=== PATIENT | female | born 1995 | race Caucasian/White ===

== ENCOUNTER 2018-02-14 13:49 | Emergency (ER) | payer OTHER, SELFPAY ==
[2018-02-14 13:49] VITALS: BP 110/70; PULSE 83; RESP 18; TEMP 36.6; O2SAT 100; BMI 24.0
--- NOTE | 2018-02-14 14:00 | ED.VISSUMM ---
- ER Visit Summary Date of Service: 02/14/18 Chief Complaint: Nausea and vomiting History of Present Illness: The patient is a 23 F presents to the emergency department with alcohol poisoning. Patient states that yesterday was her birthday. She states she went out last night and drank a whole bunch of whiskey. She states she began to vomit 2 in the morning. She states she has been unable to stop vomiting since that time. She denies fevers or chills. She only has abdominal pain when she is vomiting. She denies any blood in the emesis. Patient has no history of abdominal surgery. She denies any other chronic medical conditions. Physical Examination: Vital signs reviewed General: Well-nourished, well-developed Head: Normocephalic, atraumatic Eyes: Pupils equal and reactive, extraocular muscles intact Neck, supple, no lymphadenopathy Heart: Regular rate and rhythm Respiratory: No distress, clear bilaterally Abdomen: Soft, nontender, nondistended, no peritoneal signs Back: Nontender Extremities: Nontender, no edema, no cords Skin: Normal color no rash Neuro: Alert and oriented, no focal or lateralizing deficits Test Results: [] Emergency Department Course and Treatment: The patient presents with nausea and vomiting. Her abdomen is benign. IV was established. She was given Phenergan and Toradol. Screening labs are unremarkable. The patient is not . On reevaluation, she is resting comfortably. She has had no further vomiting. At this time, I do feel that she is safe for outpatient therapy. She was counseled to abstain from alcohol. She will be discharged, return with any worsening symptoms. Treatment Plan: [] Disposition: Discharge Impression: Nausea vomiting This note was generated with [employer] dictation software. It may contain incorrect words, spelling, and punctuation that were not noted in review of the chart prior to signing ED Disposition - Plan for ED Patient: Chief Complaint: Nausea/Vomiting Instructions: ED Nausea Vomiting Prescriptions: Ondansetron [Zofran Odt] 4 mg PO Q8H PRN PRN #10 tab PRN Reason: Nausea Referrals: Raman Bishop III, MD [Primary Care Provider] -
[2018-02-14 14:16] LABS: Absolute Lymphocyte Count 1.28 X10^3/ul (0.83-4.51); Absolute Neutrophil Count 12.8 X10^3/uL (2.0-7.7); Basophil# 0.02 X10^3/uL; Basophil% 0.1 % (0-1); Eosinophil# 0.02 X10^3/uL; Eosinophils% 0.1 % (0-5); Hematocrit 40.8 % (37-47); Hemoglobin 13.8 g/dl (12.0-15.0); Lymphocyte # 1.28 X10^3/ul (4.0); Lymphocyte % 8.7 % (19-41); Mean Corp Hgb Conc 33.8 g/gl (32-36); Mean Corpuscular Hgb 30.3 pg (27.0-32.0); Mean Corpuscular Volume 89.5 fL (81-99); Mean Platelet Vol. 9.5 fl (6.2-12.0); Monocyte# 0.49 X10^3/uL; Monocyte% 3.3 % (0-10); Neutrophil # 12.84 X10^3/uL (2.7-7.7); Neutrophil % 87.7 % (47-70); POSITIVE COUNT NO; POSITIVE DIFFERENTIAL NO; POSITIVE MORPHOLOGY NO; Platelet Count 229 K/mm3 (150-450); RBC Distribution Width CV 12.3 % (11.6-14.6); Red Blood Count 4.56 M/mm3 (4.2-5.4); White Blood Count 14.7 K/mm3 (4.4-11.0)
[2018-02-14] MEDS: 0.9% Normal Saline 1,000 ML 1000 ML IV (14:16)
[2018-02-14] MEDS: proMETHazine 25 MG/ML Syringe 12.5 MG IV (14:19)
[2018-02-14] MEDS: Ketorolac 15 MG/ML Vial IV (14:19)
[2018-02-14] MEDS: DiphenhydrAMINE 50 MG/ML Syringe 25 MG IV (14:19)
[2018-02-14 14:28] LABS: Anion Gap 9 (5-15); BUN 10 mg/dL (7-18); BUN/Creat Ratio 11.9 RATIO (10-20); Calcium,Total 9.5 mg/dL (8.5-10.1); Chloride 107 mmol/L (98-107); Creatinine, Serum 0.84 mg/dL (0.55-1.02); EST Glomerular Filtration Rate 90 mL/min (>60); Est Glom Filt Rate - Afr Amer 109 mL/min (>60); Estimated Creatinine Clearance 105.97 ml/min; Glucose 95 mg/dL (74-106); Potassium 3.8 mmol/L (3.5-5.1); Sodium Level 141 mmol/L (136-145)
[2018-02-14 14:33] LABS: Pregnancy, Serum, hCG Quali. NEGATIVE Negative (0-9 Nonpreg)
[2018-02-14 15:08] VITALS: BP 105/56; PULSE 64; RESP 14; O2SAT 100
== END 2018-02-14 15:11 | disposition home or self-care (01) ==
PROVIDERS: Emergency Provider Emergency Medicine; Family Provider Family Medicine; PCP Family Medicine
DX: R11.2 Nausea with vomiting, unspecified (principal); R10.9 Unspecified abdominal pain
CPT/HCPCS: 80048; 84703; 85025; 96361; 96374; 96375; 99283; J7030; A4216

== ENCOUNTER 2019-03-09 21:32 | Emergency (ER) | payer OTHER, SELFPAY ==
[2019-03-09 21:33] VITALS: BP 123/76; PULSE 75; RESP 14; TEMP 36.7; O2SAT 98; BMI 23.8
--- NOTE | 2019-03-09 22:30 | RAD_ITS ---
STUDY: X-RAY - LUMBAR SPINE REASON FOR EXAM: Female, 24 years old. Lower back pain for 2 months worsening tonight. TECHNIQUE: 3 view(s) of the lumbar spine were obtained. COMPARISON: None FINDINGS: Normal lumbar lordosis. Very minimal levo scoliosis with convexity at L2-3. There is a normal alignment of the vertebrae. Normal vertebral bodies and endplates. Normal disc space heights. There is no evidence of acute fracture or loss of vertebral axial height. The soft tissue structures are unremarkable. RAD/Lumbar Spine 2 or 3 Views IMPRESSION: Minimal levoscoliosis without other evidence of lumbar spine abnormality. Electronically Signed: Leroy Holt DO at 22:50 EDT Tel [phone], Service support ,
--- NOTE | 2019-03-09 23:05 | ED.DCSUM_ITS ---
- ER Visit Summary Date of Service: 03/09/19 Chief Complaint: Low back pain History of Present Illness: The patient is a 24 F dyspnea past medical history. Patient states over the years she is had back pain from time to time. 2 months ago she took a step and went down about 2 feet and injured her back. Since that time she is had back pain. She is been going to a local chiropractor who told her she had arthritis in her back and has been doing back injections. She is never had back surgery. She denies any fever. She states the pains in her lower back and radiates to both legs. She denies any bowel or bladder incontinence. No leg weakness. Physical Examination: Young female no acute distress. Vital signs are stable and afebrile. H EENT exam unremarkable. Neck nontender no lymphadenopathy. Lungs clear to auscultation bilaterally. Heart regular rhythm no murmur. A bdomen is soft and nontender. Normal bowel sounds no peritoneal signs. Extremities moves all 4. Neurovascular intact. 5 out of 5 drilling foreman strength. Dorsi plantarflexion intact. No cauda equina. No saddle anesthesia. No specific radiculopathy. Back she has tenderness along her lumbar spine. There is no ecchymosis or bruising. No redness or warmth. Neurologically she is awake and alert. With no focal motor or sensory deficits. Test Results: LS spine x-rays were obtained 3 views shows no acute abnormality. No fracture. Good joint space. Normal vertebral bodies. Read both myself and radiologist. I did go over the films with the patient and her . Emergency Department Course and Treatment: X-rays obtained to rule out any type of fracture. They were normal. Treatment Plan: Motrin for pain and inflammation. Ice and heat. Follow-up with your primary care physician if not improving she may need more advanced imaging such as an MRI. Disposition: Discharge Impression: Acute on chronic low back pain of uncertain etiology This note was generated with [employer] dictation software. It may contain incorrect words, spelling, and punctuation that were not noted in review of the chart prior to signing ED Disposition - Plan for ED Patient: Referrals: Raman Bishop III, MD [Primary Care Provider] -
--- NOTE | 2019-03-09 23:10 | ED.DEP ---
ED Disposition - Plan for ED Patient: Disposition: Home or Assisted Living Instructions: BACK PAIN w/ SCIATICA Referrals: Raman Bishop III, MD [Primary Care Provider] - 1 Week if not improving Additional Instructions: Motrin for pain and inflammation. Ice and heat to your back. Follow-up with Dr. Raman Bishop if not improving you may need an MRI to evaluate the disc and nerve in your lower back.
[2019-03-09 23:18] VITALS: RESP 16
== END 2019-03-09 23:18 | disposition home or self-care (01) ==
PROVIDERS: Emergency Provider Emergency Medicine; Family Provider Family Medicine; PCP Family Medicine
DX: M54.5 Low back pain (principal); G89.29 Other chronic pain
CPT/HCPCS: 72100; 99282

== ENCOUNTER 2019-09-13 12:31 | Emergency (ER) | payer OTHER, MEDICAID, SELFPAY ==
[2019-09-13 12:33] VITALS: BP 117/80; PULSE 86; RESP 16; TEMP 37; O2SAT 100; BMI 25.5
[2019-09-13 12:40] VITALS: TEMP 37
--- NOTE | 2019-09-13 12:43 | ED.DCSUM_ITS ---
History of Present Illness Chief Complaint: Cold Sx Informant: Patient Onset: Days Context: Gradual Onset Timing: Continuous Current Severity: Moderate Maximum Severity: Moderate Narrative: The patient presents to the emergency department flulike symptoms. The patient is 8 weeks gestation. She states that she has had cough, myalgias, low-grade fever, diarrhea, and vomiting. She states her symptoms began about 5 days ago. She went to urgent care, and because she was , she was sent over here. She denies any bleeding or discharge. She has had documented intrauterine with this . She is otherwise been in her normal state of health. Prior similar symptoms: No Recent Illness/Hospitalization: No Past Medical History - Allergies and Home Meds Allergies/Adverse Reactions: Allergies adhesive Allergy (Verified 09/13/19 12:33) Rash Latex, Natural Rubber Allergy (Verified 09/13/19 12:33) Rash Primary Care Physician: Raman Bishop III, MD [Primary Care Provider] - Prior records reviewed: Yes Past Medical History: None Surgical History: no surgical history Smoking Status: Never smoker Review of Systems General: Reports: Fever Eyes: Denies: Visual changes - bilaterally, Diplopia ENT: Denies: Rhinorrhea, Sore throat Cardiovascular: Denies: Chest pain, Palpitations Respiratory: Reports: Cough Gastrointestinal: Reports: Nausea, Vomiting, Diarrhea Genitourinary: Denies: Dysuria, Hematuria, Frequency Musculoskeletal: Denies: Back pain, Extremity Pain Skin: Denies: Rash, Wounds Neurological: Denies: Headache, Weakness, Numbness Physical Exam Vital Signs/Narrative: Vital Signs Temp Pulse Resp BP Pulse Ox 09/13/19 12:40 98.6 F 09/13/19 12:33 98.6 F 86 16 117/80 100 Inital Vital Signs reviewed: Yes General: Well nourished, Well developed, No Acute Distress Head: Normocephalic, Atraumatic Eyes: Perrl, EOMI ENT: Moist mucous membranes, No rhinorrhea Neck: Supple, Nontender Cardiovascular: Regular rate, Regular rhythm, No murmurs Respiratory: No distress, CTA bilaterally, Chest nontender Abdomen: Soft, Nontender, Nondistended, Normal bowel sounds Back: Nontender, Normal Inspection Extremities: Nontender, No edema Skin: Normal color, No rash Neurological: Alert, Oriented x3, Cranial nerves II-XII grossly intact, Normal Strength, Normal Sensation Psychological: Normal affect, Normal Mood Diagnostic/Tx/Re-eval Abnormal Lab Results 09/13/19 09/13/19 09/13/19 12:59 12:59 13:19 WBC 4.8 RBC 4.10 L Hgb 12.2 Hct 36.7 L MCV 89.5 MCH 29.8 MCHC 33.2 RDW Std Deviation 39.3 RDW Coeff of Ramses 12.1 Plt Count 188 MPV 9.9 Immature Gran % (Auto) 0.200 Neut % (Auto) 64.2 Lymph % (Auto) 21.1 [place] % (Auto) 14.1 H Eos % (Auto) 0.2 Baso % (Auto) 0.2 Absolute Neuts (auto) 3.1 Absolute Lymphs (auto) 1.00 Nucleated RBC % 0 Sodium 137 Potassium 3.8 Chloride 105 Carbon Dioxide 26.0 Anion Gap 6 BUN 7 Creatinine 0.72 Estim Creat Clear Calc 122.59 Est GFR (MDRD) Af Amer 128 Est GFR (MDRD) Non-Af 106 BUN/Creatinine Ratio 9.7 L Glucose 76 Calcium 8.8 Total Bilirubin 0.30 AST 19 ALT 22 Alkaline Phosphatase 50 Total Protein 7.6 Albumin 3.7 Globulin 3.9 Albumin/Globulin Ratio 0.9 Urine Color Yellow Urine Clarity Sl. Cloudy Urine pH 7.0 Ur Specific Lindsey 1.015 Urine Protein Negative Urine Glucose (UA) Normal Urine Ketones Negative Urine Occult Blood Negative Urine Nitrite Negative Urine Bilirubin Negative Urine Urobilinogen Normal Ur Leukocyte Esterase Negative Urine RBC 0 SEEN Urine WBC 0 SEEN Ur Squamous Epith Cells 0-5 SEEN Urine Bacteria 1+ Urine Mucus 1+ - Medical Decision Making The patient has had influenza type symptoms for 5 days. She has no hypoxia. Her lungs are clear. She is currently . Influenza was obtained was positive for influenza B. The patient was given fluids and antiemetics. Screening labs were obtained. She has no significant evidence of dehydration. She is had no further vomiting. As the patient has had symptoms for 5 days, and is , I do not see a clear benefit for Tamiflu and she is in agreement with this. I will treat her symptomatically. She will continue oral hydration and fever control. She was counseled on concerning symptoms and reasons to return. She will be discharged home. Impression 1. Influenza B ED Disposition - Plan for ED Patient: Instructions: INFLUENZA (Adult) Prescriptions: Dicyclomine HCl [Bentyl] 20 mg PO TIDAC #20 cap Prescription Printed Ondansetron [Zofran Odt] 4 mg PO Q8H PRN PRN #10 tab PRN Reason: Nausea Prescription Printed Referrals: Raman Bishop III, MD [Primary Care Provider] -
[2019-09-13] MEDS: 0.9% Normal Saline 1,000 ML 1000 ML IV (12:58)
[2019-09-13] MEDS: proMETHazine 25 MG/ML Syringe 6.25 MG IV (12:58)
[2019-09-13 13:25] LABS: Absolute Neutrophil Count 3.1 X10^3/uL (2.0-7.7); Basophil# 0.01 X10^3/uL; Basophil% 0.2 % (0-1); Eosinophil# 0.01 X10^3/uL; Eosinophils% 0.2 % (0-5); Hematocrit 36.7 % (37-47); Hemoglobin 12.2 g/dL (12.0-15.0); Lymphocyte % 21.1 % (19-41); Mean Corp Hgb Conc 33.2 g/dL (32-36); Mean Corpuscular Hgb 29.8 pg (27.0-32.0); Mean Corpuscular Volume 89.5 fL (81-99); Mean Platelet Vol. 9.9 fl (6.2-12.0); Monocyte# 0.67 X10^3/uL; Monocyte% 14.1 % (0-10); NRBC Flagged by Analyzer 0 % (0-5); Neutrophil # 3.05 X10^3/uL (2.7-7.7); Neutrophil % 64.2 % (47-70); Platelet Count 188 K/mm3 (150-450); RBC Distribution Width CV 12.1 % (11.6-14.6); RBC Distribution Width SD 39.3 fl (35.1-43.9); White Blood Count 4.8 K/mm3 (4.4-11.0)
[2019-09-13 13:31] LABS: Red Blood Cells-Urine 0 SEEN /hpf (0-5); White Blood Cells 0 SEEN /hpf (0-5)
[2019-09-13 13:32] LABS: Color, Urine Yellow (Yellow); Glucose, Dipstick Normal (Normal); Ketone-Dipstick Negative (Negative); Leukocyte Esterase-Dipstick Negative /ul (Negative); Nitrite-Dipstick Negative (Negative); Occult Blood-Urine Negative /ul (Negative); Protein-Dipstick Negative (Negative); Specific Gravity, Urine 1.015 (1.002-1.030); Urine Bilirubin Dipstick Negative (Negative); Urine Clarity Sl. Cloudy (Clear); Urine Urobilinogen Normal (Normal)
[2019-09-13 13:38] LABS: Bacteria 1+ /hpf (None Seen); Mucous, Urine 1+ /hpf (<or=2+); Squamous Epithelial Cells - UA 0-5 SEEN /hpf (5-10)
[2019-09-13 13:41] LABS: ALB/GLOB Ratio 0.9 RATIO (0.9-2.4); AST(SGOT) 19 U/L (15-37); Alanine Aminotransfer ALT/SGPT 22 U/L (13-56); Albumin, Serum 3.7 g/dL (3.2-5.0); Alkaline Phosphatase 50 U/L (45-117); Anion Gap 6 (5-15); BUN 7 mg/dL (7-18); BUN/Creat Ratio 9.7 RATIO (10-20); Calcium,Total 8.8 mg/dL (8.5-10.1); Chloride 105 mmol/L (98-107); Creatinine, Serum 0.72 mg/dL (0.55-1.02); EST Glomerular Filtration Rate 106 mL/min (>60); Est Glom Filt Rate - Afr Amer 128 mL/min (>60); Estimated Creatinine Clearance 122.59 ml/min; Globulin 3.9 g/dL (2.2-4.2); Glucose 76 mg/dL (74-106); Potassium 3.8 mmol/L (3.5-5.1); Protein, Total 7.6 g/dL (6.4-8.2); Sodium Level 137 mmol/L (136-145)
[2019-09-13 14:06] VITALS: BP 107/66; PULSE 59; RESP 17; TEMP 37
== END 2019-09-13 14:08 | disposition home or self-care (01) ==
LOC: ED 13:01
PROVIDERS: Emergency Provider Emergency Medicine; PCP Family Medicine
DX: O99.511 Diseases of the respiratory system complicating pregnancy, first trimester (principal); J10.1 Influenza due to other identified influenza virus with other respiratory manifestations; O99.89 Other specified diseases and conditions complicating pregnancy, childbirth and the puerperium; O21.9 Vomiting of pregnancy, unspecified; Z91.040 Latex allergy status; Z3A.08 8 weeks gestation of pregnancy
CPT/HCPCS: 80053; 81001; 85025; 87804; 96361; 96374; 99284; J7030; A4216

== ENCOUNTER 2019-09-27 10:07 | Day surgery (SDC) | payer OTHER, MEDICAID, SELFPAY ==
--- NOTE | 2019-09-23 12:17 | HP.PCM_ITS ---
History and Physical Date of Admission: 09/27/19 Claudia Barrios Physician AIRLINE MANAGERIAL SUPERVISOR H&P Signed Encounter Date: 09/23/2019 Expand All Collapse All Hide copied text Fatoumata for details Tony Hernandez is a 24 year old female who presents for missed ab follow up and for c/o vaginal irritation. Pt reports itching and burning with yellow discharge for last few days. Denies pelvic pain or dysuria. Pt reports odor with Discharge. No vaginal bleeding. Patient would like to proceed with suction D&C at [facility] a scheduled ? PAST MEDICAL HISTORY PAST MEDICAL HISTORY Diagnosis Date ? Attention deficit disorder with hyperactivity(314.01) ? ? childhood seizure ? ? age 6-no recurrences ? Genital HSV ? ? depression ? ? depression ? ? Vocal cord dysfunction 12/08/2011 ? PAST SURGICAL HISTORY PAST SURGICAL HISTORY Procedure Laterality Date ? DELIVERY ONLY ? 10/23/15 ? , low transverse ? TYMPANOSTOMY LOCAL; UNILATERAL ? ? ? FAMILY HISTORY FAMILY HISTORY Problem Relation Age of Onset ? No Known Problems Mother ? ? Diabetes Father ? ? No Known Problems Brother ? ? No Known Problems Brother ? ? No Known Problems Sister ? ? No Known Problems Brother ? ? Heart Maternal Grandfather ? ? Lipids Maternal Grandfather ? ? Stroke Maternal Grandmother ? ? Diabetes Paternal Grandmother ? ? Cancer Maternal Aunt ? ? smoker- Lung ? No Known Problems Son ? ? SOCIAL HISTORY Social History ? Tobacco Use ? Smoking status: Former Smoker ? ? Types: Cigarettes ? ? Last attempt to quit: 04/13/2017 ? ? Years since quittin.4 ? Smokeless tobacco: Never Used Substance Use Topics ? Alcohol use: No ? Drug use: No ? CURRENT MEDICATIONS Current Outpatient Medications Medication Sig ? vit 91/iron/folic/dha ( + DHA ORAL) Take by mouth. ? albuterol HFA (PROVENTIL HFA, VENTOLIN HFA) 90 mcg/actuation inhaler Inhale 2 Puffs as instructed every 4 hours as needed. ? doxycycline monohydrate (MONODOX) 100 mg capsule Take 1 capsule by mouth twice daily for 2 doses. ? ibuprofen (MOTRIN) 600 mg tablet Take 1 tablet by mouth every 6 hours as needed. FOR PAIN. ? metroNIDAZOLE (FLAGYL) 500 mg tablet Take 1 tablet by mouth twice daily for 7 days. ? valACYclovir (VALTREX) 1 gram tab TAKE 1 TABLET BY MOUTH EVERY DAY (Patient not taking: Reported on 09/13/2019) ? No current facility-administered medications for this visit. ? Allergies As of Date: 09/23/2019 Allergen Noted Reaction ADHESIVE TAPE (ROSINS) 01/27/2008 Rash LATEX, NATURAL RUBBER 03/09/2019 Rash ? Fully Assessed 09/23/2019 ? ? REVIEW OF SYSTEMS Abdomen: no pain Bladder: no dysuria.. Expanded ROS: GENERAL: Negative for fever Allergies and current medication updated:Yes ? EXAM: BP 98/54 Wt 169 lb (76.7kg) ? GENERAL: pleasant, female in no apparent distress HEENT: Normocephalic and atraumatic NECK: full range of motion DERMATOLOGY: Normal, without lesions, non-icteric and non-hirsute ? PELVIC: external genitalia normal, normal Bartholin's glands, urethra, [place]'s glands, no vulvar lesions, no cervical lesions, good vaginal support, normal appearing perineal body and perianal region, thin yellow discharge NEURO: alert and oriented x3,exam grossly non-focal EXTREMITIES: normal ? ASSESSMENT AND PLAN: Encounter Diagnosis ? ? ICD-10-CM ? 1. Missed O02.1 ? 2. Vaginal discharge N89.8 ? ? 3. Doxycycline preop/post op reviewed 4. Flagyl for likely BV- red top sent 5. Pt has been counseled on risks/benefits and alternatives of surgery including but not limited to anesthesia, bleeding, infection, perforation of uterus with subsequent injury to pelvic structures including bowel, bladder, and vessels. Pt wishes to proceed with surgery at this time. ? Consent signed and post op meds given ? ? Claudia Roque MD ? Office Visit on 09/23/2019
[2019-09-27] VITALS (8 sets, daily range): BP systolic 104–116; BP diastolic 61–79; PULSE 59–89; RESP 16; TEMP 36.8–37.2; O2SAT 92–100; BMI 25.7
[2019-09-27] MEDS: Doxycycline 100 MG CAPSULE PO (07:00)
[2019-09-27] MEDS: Lactated Ringers 1,000 ML 100 ML IV (10:40)
--- NOTE | 2019-09-27 12:14 | DCINST_ITS ---
Discharge Diet: No Restrictions Discharge Activity: Return to Normal Activity, May Shower, May Take a Tub Bath - in 2 weeks. May resume sexual activity in: 2 weeks Call your doctor if your incision/area has: Foul Smelling Discharge Call your doctor if you observe: Fever of 101 or Higher, Using more than one pad per hour Allergies/Adverse Reactions: Allergies adhesive Allergy (Verified 09/27/19 10:15) Rash Latex, Natural Rubber Allergy (Verified 09/27/19 10:15) Rash Medications to take at Discharge Acetaminophen [Tylenol Extra Strength] 500 - 1,000 mg PO Q6H PRN PRN 09/26/19 Albuterol Inhaler [Ventolin Hfa (SP)] 1 - 2 puff INHALATION Q6H PRN PRN 09/26/19 Metronidazole [Flagyl] 500 mg PO BID 09/26/19 Primary Care Physician: Raman Bishop III, MD [Primary Care Provider] - Test Results: Test results from this visit will be discussed in further detail at your follow- up appointment, if applicable. Please Follow Up With: Claudia Roque MD When: -2 weeks -
--- NOTE | 2019-09-27 12:15 | POC_PTH ---
PATIENT: GENE WEAVER LOC: [facility] U#:[id number] AGE/SX: 24/ ROOM: RE09/27/[address]: Dr. Claudia Roque, MDDOB: 1995 BED: DIS: 09/27/2019 SPEC #: [id number] RECD: 09/27/19 13:08 STATUS: BRENNON PRAFUL #: [id number] WENDI: 09/27/19 12:[address]: Claudia Roque DEPT: SURGICAL PATHOLOGY RECD BY: Baltazar De La Fuente ENTERED: 09/27/19 13:09 SP TYPE: PROD CONC OTHR DR: Dr. Raman Bishop III, MD Tissues: Product of conception, NOS Procedures: Surgery Specimen Level IV HEADER OPERATION: D & C suction PRE-OP DIAGNOSIS: Missed TISSUE SUBMITTED: Products of conception (Anora) MICROSCOPIC DIAGNOSIS Products of conception: Decidua, gestational endometrium and immature chorionic villi (products of conception). See comment. GAY:francesca 09/28/19 COMMENT Results of Anora testing will be reported as an addendum. MICROSCOPIC DESCRIPTION Slides are reviewed. GROSS DESCRIPTION Received fresh for Anora testing labeled with the patient's name is a specimen designated products of conception. The specimen consists of multiple irregular fragments of pink-red soft tissue that in aggregate measure 5 x 5 x 2 cm. A portion of the specimen is submitted for Anora testing. tissue is not identified. Risk Assessor tissue is submitted in three cassettes. / GAY:francesca 09/27/19 TC:5 CPT: 56670 ADDENDUM ADDENDUM ADDENDUM ADDENDUM ADDENDUM ADDENDUM ADDENDUM ADDENDUM ADDENDUM 10/06/2019 10:31 ADDENDUM 10/06/2019 10:31 ADDENDUM 10/06/2019 10:31 ADDENDUM 10/06/2019 10:31 ADDENDUM 10/06/2019 10:31 ANORA MICROARRAY CHROMOSOME ANALYSIS WITH PARENTAL SUPPORT RESULT: Maternal cell contamination MICROARRAY RESULT: n/a CLINICAL INTERPRETATION: Maternal cell contamination (CUSTODIAL) was detected. Insufficient DNA detected for analysis. Please see complete above mentioned report in EMR
--- NOTE | 2019-09-27 12:35 | PCM.OPRPT ---
Report of Operation Date of Procedure: 09/27/19 Pre-Operative Diagnosis: missed Post-Operative Diagnosis: same Surgery/Procedure Performed:: suction D&C Description of Surgical Findings:: anteverted uterus approx 8 weeks size Type of Anesthesia:: MAC Anesthesiologist: Patrick Hernandez Special Medications: none Specimen's removed: Products of conception Drains: none Estimated Blood Loss (mL): minimal Fluids Replaced: 400 Description of Procedure: After informed consent was obtained patient was taken to OR and placed in supine position. Anesthesia was given. patient was placed in yellow fin stirrups and prepped and draped in normal sterile fashion. bladder was drained with straight catheter with approximately 100cc of clear yellow urine expelled. Weighted speculum placed in posterior fornix of vaginal, single tooth tenaculum was used to gently grasped anterior lip of cervix. . Cervix was then gently dilated in an incremental fashion. Was adequate dilation was achieved the 8 tamazight suction catheter was placed. suction curettage performed until no tissue was expelled and cavity was deemed empty. Gentle sharp curettage performed to ensure no retained POC. The tissue was then sent out for chromosomal testing - ANORA per patient request. No complications. At this time procedure was deemed complete and successful. Tenaculum removed, speculum removed. Good hemostasis appreciated. Vaginal sweep was negative. Instrument and lap count correct x 2. I anticipate normal postoperative course. Grafts/Implants Used: none - Complications none - Admit VTE Documentation VTE Present on Admission: Yes VTE Mechan Device Prophylaxis: SCD's VTE Pharm Prophylaxis ordered?: No
[2019-09-27] MEDS: Acetaminophen 500 MG Tablet 1000 MG PO (13:35)
== END 2019-09-27 14:18 | disposition home or self-care (01) ==
LOC: SDC 10:08 → AC 10:09
PROVIDERS: PCP Family Medicine; Referring Provider Obstetrics & Gynecology; Visit Provider Obstetrics & Gynecology
PROC: (CPT 59820; principal; 2019-09-27 12:00)
DX: O02.1 Missed abortion (principal); N89.8 Other specified noninflammatory disorders of vagina; J45.909 Unspecified asthma, uncomplicated; Z79.899 Other long term (current) drug therapy; Z87.891 Personal history of nicotine dependence
CPT/HCPCS: 59820; 88305; J7120

== ENCOUNTER 2019-10-04 15:50 | Day surgery (SDC) | payer OTHER, MEDICAID, SELFPAY ==
[2019-09-27 10:27] VITALS: BMI 25.7
[2019-10-04] VITALS (7 sets, daily range): BP systolic 106–129; BP diastolic 57–69; PULSE 67–78; RESP 16–18; TEMP 36.2–36.8; O2SAT 98–100; BMI 25.7
--- NOTE | 2019-10-04 14:25 | POC_PTH ---
PATIENT: GENE WEAVER LOC: [facility] U#:[id number] AGE/SX: 24/ ROOM: RE10/04/[address]: Dr. Tanesha Gleason MD : 1995 BED: DIS: 10/04/2019 SPEC #: [id number] RECD: 10/05/19 12:02 STATUS: BRENNON REBrenda #: [id number] WENDI: 10/04/19 14:[address]: Tanesha Gleason DEPT: SURGICAL PATHOLOGY RECD BY: Baltazar De La Fuente ENTERED: 10/05/19 12:11 SP TYPE: PROD CONC OTHR DR: Dr. Raman Bishop III, MD Tissues: Product of conception, NOS Procedures: Surgery Specimen Level IV HEADER OPERATION: Dilation and curettage, suction PRE-OP DIAGNOSIS: Incomplete spontaneous , retained products of conception TISSUE SUBMITTED: Products of conception MICROSCOPIC DIAGNOSIS Products of conception: Fragments of blood clot and scant fragment of benign endometrial tissue. See comment. GAY:francesca 10/06/19 COMMENT Placental tissue is not identified. Clinical correlation and appropriate follow up are necessary. Please make reference to previous specimen ([id number]) products of conception with diagnosis of decidua, gestational endometrium and immature chorionic villi (products of conception). MICROSCOPIC DESCRIPTION Slides are reviewed. GROSS DESCRIPTION Received in fixative is one container labeled with the patient's name and designated products of conception. The specimen consists of multiple irregular fragments of dark red-vazquez soft tissue that in aggregate measure 9 x 8 x 1 cm. parts are not grossly recognized. Parent Educator portions are submitted in three cassettes. / AM:francesca 10/05/19 TC:5 CPT: 84995
[2019-10-04] MEDS: Lactated Ringers 1,000 ML 150 ML IV (16:10)
[2019-10-04 16:22] LABS: Hematocrit 35.7 % (37-47); Hemoglobin 11.7 g/dL (12.0-15.0); Mean Corp Hgb Conc 32.8 g/dL (32-36); Mean Corpuscular Hgb 29.9 pg (27.0-32.0); Mean Corpuscular Volume 91.3 fL (81-99); Mean Platelet Vol. 9.7 fl (6.2-12.0); Platelet Count 252 K/mm3 (150-450); RBC Distribution Width CV 11.9 % (11.6-14.6); RBC Distribution Width SD 39.6 fl (35.1-43.9); Red Blood Count 3.91 M/mm3 (4.2-5.4)
[2019-10-04] MEDS: Doxycycline 100 MG CAPSULE 200 MG PO (16:25)
--- NOTE | 2019-10-04 17:02 | PCM.HP.BLA ---
History and Physical Date of Admission: 10/04/19 Tony Hernandez is a 24 year old female who presents for missed ab follow up and for c/o vaginal irritation. Pt reports itching and burning with yellow discharge for last few days. Denies pelvic pain or dysuria. Pt reports odor with Discharge. No vaginal bleeding. Patient would like to proceed with suction D&C at [facility] a scheduled ? PAST MEDICAL HISTORY PAST MEDICAL HISTORY Diagnosis Date ? Attention deficit disorder with hyperactivity(314.01) ? ? childhood seizure ? ? age 6-no recurrences ? Genital HSV ? ? depression ? ? depression ? ? Vocal cord dysfunction 12/08/2011 ? PAST SURGICAL HISTORY PAST SURGICAL HISTORY Procedure Laterality Date ? DELIVERY ONLY ? 10/23/15 ? , low transverse ? TYMPANOSTOMY LOCAL; UNILATERAL ? ? ? FAMILY HISTORY FAMILY HISTORY Problem Relation Age of Onset ? No Known Problems Mother ? ? Diabetes Father ? ? No Known Problems Brother ? ? No Known Problems Brother ? ? No Known Problems Sister ? ? No Known Problems Brother ? ? Heart Maternal Grandfather ? ? Lipids Maternal Grandfather ? ? Stroke Maternal Grandmother ? ? Diabetes Paternal Grandmother ? ? Cancer Maternal Aunt ? ? smoker- Lung ? No Known Problems Son ? ? SOCIAL HISTORY Social History ? Tobacco Use ? Smoking status: Former Smoker ? ? Types: Cigarettes ? ? Last attempt to quit: 04/13/2017 ? ? Years since quittin.4 ? Smokeless tobacco: Never Used Substance Use Topics ? Alcohol use: No ? Drug use: No ? CURRENT MEDICATIONS Current Outpatient Medications Medication Sig ? vit 91/iron/folic/dha ( + DHA ORAL) Take by mouth. ? albuterol HFA (PROVENTIL HFA, VENTOLIN HFA) 90 mcg/actuation inhaler Inhale 2 Puffs as instructed every 4 hours as needed. ? doxycycline monohydrate (MONODOX) 100 mg capsule Take 1 capsule by mouth twice daily for 2 doses. ? ibuprofen (MOTRIN) 600 mg tablet Take 1 tablet by mouth every 6 hours as needed. FOR PAIN. ? metroNIDAZOLE (FLAGYL) 500 mg tablet Take 1 tablet by mouth twice daily for 7 days. ? valACYclovir (VALTREX) 1 gram tab TAKE 1 TABLET BY MOUTH EVERY DAY (Patient not taking: Reported on 09/13/2019) ? No current facility-administered medications for this visit. ? Allergies As of Date: 09/23/2019 Allergen Noted Reaction ADHESIVE TAPE (ROSINS) 01/27/2008 Rash LATEX, NATURAL RUBBER 03/09/2019 Rash ? Fully Assessed 09/23/2019 ? ? REVIEW OF SYSTEMS Abdomen: no pain Bladder: no dysuria.. Expanded ROS: GENERAL: Negative for fever Allergies and current medication updated:Yes ? EXAM: BP 98/54 Wt 169 lb (76.7kg) ? GENERAL: pleasant, female in no apparent distress HEENT: Normocephalic and atraumatic NECK: full range of motion DERMATOLOGY: Normal, without lesions, non-icteric and non-hirsute ? PELVIC: external genitalia normal, normal Bartholin's glands, urethra, Satartia's glands, no vulvar lesions, no cervical lesions, good vaginal support, normal appearing perineal body and perianal region, thin yellow discharge NEURO: alert and oriented x3,exam grossly non-focal EXTREMITIES: normal ? ASSESSMENT AND PLAN: Encounter Diagnosis ? ? ICD-10-CM ? 1. Missed O02.1 ? 2. Vaginal discharge N89.8 ? ? 3. Doxycycline preop/post op reviewed 4. Flagyl for likely BV- red top sent 5. Pt has been counseled on risks/benefits and alternatives of surgery including but not limited to anesthesia, bleeding, infection, perforation of uterus with subsequent injury to pelvic structures including bowel, bladder, and vessels. Pt wishes to proceed with surgery at this time. ? Consent signed and post op meds given Date: Patient was seen in the office today by her Barrios and had an ultrasound that showed significant retained products of conception, actually there was concern about possible molar . No embyronic pole was noted. She was bleeding actively but not hemorrhaging. Quantitative hCG was ordered along with CBC. Patient was consented for suction D&C. Will use ultrasound guidance
[2019-10-04 17:06] LABS: hCG Titer Quant., Serum 214 mIU/mL (1-3)
--- NOTE | 2019-10-04 17:06 | PCM.DC.D&C ---
Discharge Diet: No Restrictions Discharge Activity: Return to Normal Activity, May Shower, May Take a Tub Bath - in 2 weeks. May resume sexual activity in: 2 weeks Call your doctor if your incision/area has: Sudden Increased Bleeding, Foul Smelling Discharge Call your doctor if you observe: Fever of 101 or Higher, Using more than one pad per hour - for 2 hrs in a row Allergies/Adverse Reactions: Allergies adhesive Allergy (Verified 09/27/19 10:15) Rash Latex, Natural Rubber Allergy (Verified 09/27/19 10:15) Rash Medications to take at Discharge Acetaminophen [Tylenol Extra Strength] 500 - 1,000 mg PO Q6H PRN PRN 09/26/19 Albuterol Inhaler [Ventolin Hfa (SP)] 1 - 2 puff INHALATION Q6H PRN PRN 09/26/19 Doxycycline 100 mg PO BID 5 Days #10 cap 10/04/19 Ibuprofen [Motrin] 600 mg PO Q6H PRN #60 tab 10/04/19 The following prescriptions were given: Doxycycline 100 mg PO BID 5 Days #10 cap Transmission Status: Pending to [facility] [place] Ibuprofen [Motrin] 600 mg PO Q6H PRN #60 tab PRN Reason: Pain Transmission Status: Pending to [facility] [place] Primary Care Physician: Raman Bishop III, MD [Primary Care Provider] - Test Results: Test results from this visit will be discussed in further detail at your follow-up appointment, if applicable. Please Follow Up With: Claudia Roque MD - [phone] When: 2-4 weeks or prn
--- NOTE | 2019-10-04 17:21 | PCM.OPRPT ---
Report of Operation Date of Procedure: 10/04/19 Pre-Operative Diagnosis: retained products of conception, spontaneous Post-Operative Diagnosis: same Surgery/Procedure Performed:: suction D&C Description of Surgical Findings:: boggy uterus, normal cervix and vagina kieselguhr regenerator operator: None Type of Anesthesia:: MAC/Supplemental/Local Anesthesiologist: Patrick Hernandez Special Medications: none Specimen's removed: POCs Drains: none Estimated Blood Loss (mL): 10 Fluids Replaced: 500 Description of Procedure: The patient was taken to the operating room where she was prepped and draped in a dorsolithotomy position. A bimanual examination was done and confirmed the uterus to be 6 weeks size and lately anteverted. A weighted speculum was placed in the vagina and the anterior lip of the cervix was grasped with a single-tooth tenaculum. The cervix was dilated serially. A 8 mm suction curette was placed to the uterine fundus and the suction was created. Several passes were made to remove clots and products of conception. When minimal tissue was returning a gentle sharp curettage was then done of the uterine cavity. The uterine cry was appreciated and another gentle pass was made with the suction curette. At this point there is no active bleeding from the uterus and minimal blood and no further products of conception were removed. Pass with the suction curette was made under ultrasound guidance, and endometrial stripe was bright white. There is no active bleeding from the cervical office and the uterus was empty of the previously noted clots and debris. The instruments removed from the cervix and the cervix was observed and no active bleeding was identified. The tenaculum was removed off the cervix and hemostasis of the tenaculum site was assured. Made of the instruments removed from the vagina and the vaginal sweep was completed by me. Sponge and needle counts were correct. The patient was taken to the recovery room in stable condition. Findings: 6 week size uterus, normal cervix and vagina. Specimen: Products of conception Grafts/Implants Used: none - Complications none - Admit VTE Documentation VTE Present on Admission: No VTE Mechan Device Prophylaxis: SCD's VTE Pharm Prophylaxis ordered?: No Reason prophylaxis not ordered:: Procedure Not Indicated
== END 2019-10-04 18:19 | disposition home or self-care (01) ==
LOC: SDC 15:52 → AC 15:54
PROVIDERS: PCP Family Medicine; Referring Provider Obstetrics & Gynecology; Visit Provider Obstetrics & Gynecology
PROC: (CPT 59812; principal; 2019-10-04 14:10)
DX: O03.1 Delayed or excessive hemorrhage following incomplete spontaneous abortion (principal); N89.8 Other specified noninflammatory disorders of vagina; Z87.891 Personal history of nicotine dependence; Z79.899 Other long term (current) drug therapy
CPT/HCPCS: 01965; 59812; 36415; 84702; 85027; 88305; J7120

== ENCOUNTER 2020-06-12 12:38 | Emergency (ER) | payer OTHER, MEDICAID, SELFPAY ==
[2019-10-04 16:16] VITALS: BMI 25.7
[2020-06-12 12:39] VITALS: BP 129/60; PULSE 63; RESP 16; TEMP 36.1; O2SAT 100; BMI 25.8
--- NOTE | 2020-06-12 12:49 | ED.DCSUM_ITS ---
History of Present Illness Chief Complaint: Nausea/Vomiting Informant: Patient Onset: Days Current Severity: Moderate Maximum Severity: Moderate Narrative: Patient presents secondary to nausea and vomiting. She is presently 8 weeks . She states she has had nausea for the last several weeks but over the past 3 days or so has not been able to keep anything down. She does have Phenergan at home but states that this puts her to sleep and she cannot get any thing done. She is currently on B6. She is G3, P1, Ab1. She has had an ultrasound with this to ensure intrauterine location. Past Medical History - Allergies and Home Meds Allergies/Adverse Reactions: Allergies adhesive Allergy (Verified 06/12/20 12:40) Rash Latex, Natural Rubber Allergy (Verified 06/12/20 12:40) Rash Primary Care Physician: Raman Bishop III, MD [Primary Care Provider] - Prior records reviewed: Yes Surgical History: no surgical history Lives: With Family Smoking Status: Never smoker Review of Systems General: Denies: Chills, Fever Eyes: Denies: Visual changes - bilaterally ENT: Denies: Bilateral ear pain Cardiovascular: Reports: Chest pain Respiratory: Denies: Dyspnea, Cough Gastrointestinal: Reports: Nausea, Vomiting, Constipation. Denies: Diarrhea Genitourinary: Denies: Dysuria Musculoskeletal: Denies: Extremity Pain Skin: Denies: Rash Neurological: Denies: Headache Hematologic: Denies: Easy bruising, Easy bleeding Allergy: Denies: Uticaria Physical Exam Vital Signs/Narrative: Vital Signs Temp Pulse Resp BP Pulse Ox 06/12/20 12:39 97.0 F L 63 16 129/60 H 100 Inital Vital Signs reviewed: Yes General: Well nourished, Well developed Head: Normocephalic Neck: Supple Cardiovascular: Regular rate, Regular rhythm Respiratory: No distress, CTA bilaterally Abdomen: Soft, Nontender, Hypoactive bowel sounds Extremities: Nontender Skin: Normal color Neurological: Alert, Oriented x3 Psychological: Normal affect Diagnostic/Tx/Re-eval Laboratory Results 06/12/20 13:01 Sodium 135 L Potassium 4.1 Chloride 104 Carbon Dioxide 25.0 Anion Gap 6 BUN 11 Creatinine 0.68 Estim Creat Clear Calc 128.69 Est GFR (MDRD) Af Amer 135 Est GFR (MDRD) Non-Af 112 BUN/Creatinine Ratio 16.1 Glucose 77 Calcium 8.9 - Medical Decision Making Patient was given Zofran and IV fluids. Secondary to reflux she was given a dose of IV Protonix. At this time patient does feel significantly improved. She is able to tolerate p.o. Her [employer]'s office did call in Zofran for her already. We will write her for short course of Pepcid to help with reflux and gastritis. ED Disposition - Plan for ED Patient: Disposition: Home or Assisted Living Diagnosis: Vomiting Instructions: ED Nausea Vomiting Adult Prescriptions: Famotidine [Pepcid] 0.5 tab PO DAILY #5 tab Transmission Status: Pending to [facility] Referrals: Tanesha Gleason MD [STAFF PHYSICIAN] - 3-5 Days if not improving
[2020-06-12] MEDS: Ondansetron 4 MG/2 ML Vial IV (13:00)
[2020-06-12] MEDS: 0.9% Normal Saline 1,000 ML 1000 ML IV (13:00)
--- NOTE | 2020-06-12 13:20 | ED.RN ---
PT RINGS OUT COMPLAINING MY CHEST IS ON FIRE, I DIDN'T COME IN WITH A COUGH, AND NOW I CAN'T STOP COUGHING. DR. NAZARIO MADE AWARE, ADDITIONAL ORDERS OBTAINED.
[2020-06-12 13:28] LABS: Anion Gap 6 (5-15); BUN 11 mg/dL (7-18); BUN/Creat Ratio 16.1 RATIO (10-20); Calcium,Total 8.9 mg/dL (8.5-10.1); Chloride 104 mmol/L (98-107); Creatinine, Serum 0.68 mg/dL (0.55-1.02); EST Glomerular Filtration Rate 112 mL/min (>60); Est Glom Filt Rate - Afr Amer 135 mL/min (>60); Estimated Creatinine Clearance 128.69 ml/min; Glucose 77 mg/dL (74-106); Potassium 4.1 mmol/L (3.5-5.1); Sodium Level 135 mmol/L (136-145)
[2020-06-12 14:14] VITALS: BP 92/61; PULSE 61; RESP 17; O2SAT 100
--- NOTE | 2020-06-12 14:15 | ED.RN ---
IV DC'ED, CATHETER INTACT, SMALL GAUZE DRESSING PLACED. DISCHARGE INSTRUCTIONS GIVEN TO AND REVIEWED WITH PATIENT, PATIENT DENIES QUESTIONS OR CONCERNS AND VOICES UNDERSTANDING OF DISCHARGE INSTRUCTIONS. PT AMBULATES OUT OF ROOM WITHOUT DIFFICULTY.
== END 2020-06-12 14:16 | disposition home or self-care (01) ==
PROVIDERS: Emergency Provider Emergency Medicine; PCP Family Medicine
DX: O21.9 Vomiting of pregnancy, unspecified (principal); Z3A.08 8 weeks gestation of pregnancy
CPT/HCPCS: 80048; 96365; 96375; 99282; J7030; A4216; J2405

== ENCOUNTER 2020-06-22 23:04 | Emergency (ER) | payer OTHER, MEDICAID, SELFPAY ==
[2020-06-22 23:04] VITALS: BP 126/75; PULSE 83; RESP 16; TEMP 36.6; O2SAT 99; BMI 25.8
[2020-06-22] MEDS: Ondansetron 4 MG/2 ML Vial IV (23:33)
[2020-06-22] MEDS: 0.9% Normal Saline 1,000 ML 1000 ML IV (23:33)
--- NOTE | 2020-06-22 23:57 | ED.DCSUM_ITS ---
History of Present Illness Chief Complaint: Nausea/Vomiting Informant: Patient Onset: Days Context: Sudden Onset Timing: Continuous Quality: Nausea with vomiting Location: GI Current Severity: Moderate Maximum Severity: Severe Worsened by: Any attempt to eat or drink Relieved by: Nothing Associated Symptoms: Thirst, dry mouth and orthostatic symptoms also no BM x4 weeks Narrative: Patient is 25-year-old G3, P1 AB 1 (spontaneous) female who was seen 2 weeks ago for -induced nausea vomiting. She was treated with Zofran. She states she was doing well until a couple of days ago. Today she has not been able to keep anything down. She states her OB is Dr. Gleason. She denies vaginal bleeding. She denies dysuria, frequency or urgency. She had decreased urine output. She denies diarrhea. She does complain of mild generalized abdominal discomfort, which she attributes to not having a bowel movement for 4 weeks. She denies fever, chills night sweats. She denies ocular, visual auditory symptoms. She denies infectious respiratory symptoms. She denies chest discomfort. Denies rash. She had problems with hyperemesis with her first . Prior similar symptoms: Yes Recent Illness/Hospitalization: Yes - Past Medical History (1) Hyperemesis Status: Acute Past Medical History - Allergies and Home Meds Allergies/Adverse Reactions: Allergies adhesive Allergy (Verified 06/22/20 23:07) Rash Latex, Natural Rubber Allergy (Verified 06/22/20 23:07) Rash Primary Care Physician: Raman Bishop III, MD [Primary Care Provider] - Prior records reviewed: Yes Surgical History: no surgical history Lives: With Family Smoking Status: Never smoker Alcohol: None Drugs: None Review of Systems General: Denies: Chills, Fever, Malaise, Subjective, Sweats Eyes: Denies: Visual changes - bilaterally, Blurred Vision - bilaterally ENT: Denies: Rhinorrhea, Sore throat Cardiovascular: Denies: Chest pain, Palpitations Respiratory: Denies: Dyspnea, Cough, Sputum, Dyspnea on exertion Gastrointestinal: Reports: Abdominal pain, Nausea, Vomiting, Constipation. Denies: Diarrhea, Melena, Hematochezia Genitourinary: Denies: Dysuria, Hematuria, Frequency Musculoskeletal: Denies: Back pain, Extremity Pain Skin: Denies: Rash, Wounds Neurological: Denies: Headache, Weakness, Numbness Endocrine: Denies: Polyuria, Polydipsia Hematologic: Denies: Easy bruising, Easy bleeding Physical Exam Vital Signs/Narrative: Vital Signs Temp Pulse Resp BP Pulse Ox 06/22/20 23:04 98 F 83 16 126/75 H 99 Inital Vital Signs reviewed: Yes General: Well nourished, Well developed, No Acute Distress, - - It appears ill. Head: Normocephalic, Atraumatic Eyes: Perrl, EOMI. Negative for: Pale conjunctiva, Scleral icterus ENT: No rhinorrhea, TM's clear, Dry mucous membranes Neck: Supple, Nontender, No lymphadenopathy, No JVD Cardiovascular: Regular rate, Regular rhythm, No murmurs, Normal S1, Normal S2 Respiratory: No distress, CTA bilaterally, Chest nontender Abdomen: Soft, Nontender, Nondistended, Normal bowel sounds Rectal: Deferred Back: Nontender, Normal Inspection Extremities: Nontender, No edema Skin: Normal color, No rash, No Trauma. Negative for: Cyanosis, Diaphoresis, Ja undice Neurological: Alert, Oriented x3, Cranial nerves II-XII grossly intact, Normal Strength, Normal Sensation Psychological: - - Affect is flat Diagnostic/Tx/Re-eval Laboratory Results 06/22/20 06/22/20 23:40 23:42 Sodium 136 Potassium 3.7 Chloride 103 Carbon Dioxide 27.0 Anion Gap 6 BUN 7 Creatinine 0.65 Estim Creat Clear Calc 134.63 Est GFR (MDRD) Af Amer 143 Est GFR (MDRD) Non-Af 118 BUN/Creatinine Ratio 10.7 Glucose 91 Calcium 8.7 Urine Color Yellow Urine Clarity Cloudy Urine pH 6.0 Ur Specific [place] 1.020 Urine Protein Negative Urine Glucose (UA) Normal Urine Ketones 5 H Urine Occult Blood 10 H Urine Nitrite Negative Urine Bilirubin Negative Urine Urobilinogen Normal Ur Leukocyte Esterase 500 H Urine RBC 0 SEEN Urine WBC 10-25 SEEN Ur Squamous Epith Cells > 100 SEEN Urine Bacteria 0 SEEN Urine Mucus 0 SEEN Basic metabolic panel is unremarkable. Urine is remarkable for ketones. It is a contaminated specimen with greater than 100 squamous epithelial cells. No bacteria was noted. Patient received 1 L normal saline followed by 1 L of D5 one half normal saline. She was treated with Zofran. She is had no nausea vomiting department. She would like to go home. - Medical Decision Making Patient presents with findings consistent with hyperemesis gravidarum. Urine was checked for ketones to for gravity. Based medical panel was obtained to assess renal function since she reports no intake for 24 hours and minimal intake for 72 hours. IV was established. She received 1 L of normal saline. She also received 4 mg of Zofran IV push. ED Disposition - Plan for ED Patient: Disposition: Home or Assisted Living Diagnosis: Hyperemesis gravidarum before end of 22 week gestation with dehydration, Ketosis, Obstipation Instructions: ED Preg Morning Sickness Referrals: Raman Bishop III, MD [Primary Care Provider] - Tanesha Gleason MD [STAFF PHYSICIAN] - 1-2 Days if not improving Additional Instructions: In the morning drink 10 ounces of mag citrate. 4 hours later drink 1 glass of MiraLAX. Drink 1 glass of MiraLAX every 1-2 hours until you start to have results.
[2020-06-23 00:04] LABS: Anion Gap 6 (5-15); BUN 7 mg/dL (7-18); BUN/Creat Ratio 10.7 RATIO (10-20); Calcium,Total 8.7 mg/dL (8.5-10.1); Chloride 103 mmol/L (98-107); Creatinine, Serum 0.65 mg/dL (0.55-1.02); EST Glomerular Filtration Rate 118 mL/min (>60); Est Glom Filt Rate - Afr Amer 143 mL/min (>60); Estimated Creatinine Clearance 134.63 ml/min; Glucose 91 mg/dL (74-106); Potassium 3.7 mmol/L (3.5-5.1); Sodium Level 136 mmol/L (136-145)
[2020-06-23 00:04] LABS: Bacteria 0 SEEN /hpf (None Seen); Color, Urine Yellow (Yellow); Glucose, Dipstick Normal (Normal); Ketone-Dipstick 5 mg/dl (Negative); Leukocyte Esterase-Dipstick 500 /ul (Negative); Mucous, Urine 0 SEEN /hpf (<or=2+); Nitrite-Dipstick Negative (Negative); Occult Blood-Urine 10 /ul (Negative); Protein-Dipstick Negative (Negative); Red Blood Cells-Urine 0 SEEN /hpf (0-5); Urine Bilirubin Dipstick Negative (Negative); Urine Clarity Cloudy (Clear); Urine Urobilinogen Normal (Normal)
[2020-06-23 00:13] LABS: Squamous Epithelial Cells - UA > 100 SEEN /hpf (5-10); White Blood Cells 10-25 SEEN /hpf (0-5)
[2020-06-23] MEDS: Dext 5%-0.45% NS 1,000 ML 999 ML IV (00:49)
[2020-06-23] MEDS: Ondansetron 4 MG/2 ML Vial IV (00:50)
[2020-06-23 00:52] VITALS: BP 104/57; PULSE 49; RESP 18
[2020-06-23 02:04] VITALS: RESP 14
== END 2020-06-23 02:04 | disposition home or self-care (01) ==
PROVIDERS: Emergency Provider Emergency Medicine; PCP Family Medicine
DX: O21.1 Hyperemesis gravidarum with metabolic disturbance (principal); E86.0 Dehydration; O99.282 Endocrine, nutritional and metabolic diseases complicating pregnancy, second trimester; E88.89 Other specified metabolic disorders; O99.612 Diseases of the digestive system complicating pregnancy, second trimester; K59.00 Constipation, unspecified; Z3A.22 22 weeks gestation of pregnancy; Z79.899 Other long term (current) drug therapy
CPT/HCPCS: 80048; 81001; 96361; 96374; 96376; 99283; J7030; J2405; J7799

== ENCOUNTER 2021-01-16 06:05 | Inpatient (IN) | payer OTHER, MEDICAID, SELFPAY ==
[2021-01-16] VITALS (52 sets, daily range): BP systolic 81–147; BP diastolic 35–75; PULSE 66–100; RESP 16; TEMP 36.1–37; O2SAT 85–100; BMI 31.6
[2021-01-16] MEDS: Lactated Ringers 500 ML 999 ML IV ×2 (06:35→08:28)
--- NOTE | 2021-01-16 06:45 | PCM.HP.OB ---
HPI - General General Date of Admission: 01/16/21 HPI Narrative GENE AUGUSTINE, is a 25 F @ 39.5 weeks who presents for contractions- found to make cervical change from 4- 6cm. pt request TOLAC, pt was scheduled for repeat elective cs 01/18/21. Maternal Data Information Final KOKO: 01/18/21 Final KOKO Source: US <20 weeks Gestational age: 39.5 PFSH PFSH Medical History (Updated 01/16/21 @ 06:[address] Claudia Roque MD) depression Vaginal after Home Medications albuterol sulfate 1 - 2 puff INHALATION Q6H PRN PRN 09/26/19 [History Last Taken Unknown] [id number] [] 1 tab PO DAILY 01/16/21 [History Last Taken 01/15/21 21:00] valacyclovir [Valtrex] 500 mg PO BID 01/16/21 [History Last Taken 01/15/21 21:00] Allergy/AdvReac Type Severity Reaction Status Date / Time adhesive Allergy Rash Verified 01/16/21 05:09 Latex, Natural Rubber Allergy Rash Verified 01/16/21 05:09 Surgical History (Updated 01/16/21 @ 06:[address] Claudia Roque MD) History of gynecologic surgery Previous section Social History Smoking Status: Former smoker History Elective abortions Hx Para 1 Spontaneous abortions Hx # Term Pregnancies Ectopic pregnancies Hx # Pregnancies Multiple births # of living children NST FHR Rate Baby A Baseline: 140 Variability:: Moderate Accelerations:: 15 x 15 Decelerations:: None NST Reactive:: Yes FHR Category:: Category I Uterine Activity:: q2-4min Vital Signs Vital Signs Vital Signs: 01/16/21 04:37 Temperature 97.4 F L Temperature Source Temporal Pulse Rate 77 Blood Pressure 118/57 L BP Systolic 118 BP Diastolic 57 Pulse Ox 99 Weight Weight: 94.347 kg Body Mass Index (BMI) 31.6 Labs Labs Labs: Blood Type A POSITIVE Antibody Screen NEGATIVE Hct 35.7 % (37-47) L Hgb 11.7 g/dL (12.0-15.0) L Rhogam given: No Assessment & Plan (1) Previous delivery affecting : (2) Encounter for trial of labor: PLAN: Admit to L&D [facility] FHR/TOCO Epidural if requested for pain Monitor VS Anticipate AROM performed- CLEAR FLUID.
[2021-01-16 06:53] LABS: Absolute Lymphocyte Count 1.45 X10^3/uL (0.83-4.51); Absolute Neutrophil Count 11.7 X10^3/uL (2.0-7.7); Basophil# 0.03 X10^3/uL; Basophil% 0.2 % (0-1); Eosinophil# 0.04 X10^3/uL; Eosinophils% 0.3 % (0-5); Hematocrit 37.5 % (37-47); Hemoglobin 12.3 g/dL (12.0-15.0); Lymphocyte # 1.45 X10^3/ul (0.83-4.51); Lymphocyte % 10.3 % (19-41); Mean Corp Hgb Conc 32.8 g/dL (32-36); Mean Corpuscular Hgb 29.9 pg (27.0-32.0); Mean Corpuscular Volume 91.2 fL (81-99); Mean Platelet Vol. 11.2 fl (6.2-12.0); Monocyte# 0.81 X10^3/uL; Monocyte% 5.8 % (0-10); NRBC Flagged by Analyzer 0 % (0-5); Neutrophil # 11.66 X10^3/uL (2.7-7.7); POSITIVE COUNT YES; Platelet Count 168 K/mm3 (150-450); RBC Distribution Width CV 12.5 % (11.6-14.6); RBC Distribution Width SD 41.1 fl (35.1-43.9); Red Blood Count 4.11 M/mm3 (4.2-5.4); White Blood Count 14.1 K/mm3 (4.4-11.0)
[2021-01-16 06:55] LABS: Differential Indicated SCAN CRITERIA MET
[2021-01-16] MEDS: Lactated Ringers 1,000 ML 200 ML IV (07:06)
[2021-01-16] MEDS: fentaNYL-bupivacaine (epidural) 100 ML BAG EPIDURAL (07:34)
[2021-01-16] MEDS: Oxytocin 30 units/NS 500 ml 30 UNITS/500 ML IV.SOLN 334 UNITS IV (10:09)
--- NOTE | 2021-01-16 10:45 | EX.PCM.OBRPT ---
Vaginal Delivery Maternal Presentation Maternal Presentation: Active Labor Operative Information Date of Procedure: 01/16/21 Pre-Operative Diagnosis: Active Labor Post-Operative Diagnosis: Surgery / Procedure Performed: Type of Anesthesia: Epidural Estimated Blood Loss: 400ml Time of Delivery: 10:06 Findings Presentation: Vertex and MARILYN Amniotic Membrane Rupture Type: Artificial Amniotic Fluid Description: Clear Placental Delivery Description: Spontaneous Placenta Disposition: [facility] Cord Vessel Description: 3 Vessels Cord Entanglement: Around neck x 1, loose Nuchal Cord Compression: Without compression A Gender: Female (1 minute): 8 (5 minute): 9 Delayed Cord Clamping: Yes Post Vaginal Delivery Medications Given After Delivery: IV Pitocin Episiotomy Description: None Laceration: Periurethral Extnsion/lac and 1st degree Complication Complications: None
[2021-01-16] MEDS: Dibucaine 30 GM Tube 1 APPLIC TOPICAL (11:40)
[2021-01-16] MEDS: 0.9% Saline Lock 10 ML Syringe IV (12:40)
--- NOTE | 2021-01-16 12:58 | NURSING ---
mother changed mind, would like hepatitis b vaccine given
[2021-01-16] MEDS: Acyclovir 200 MG Capsule 400 MG PO ×2 (13:23→22:30)
[2021-01-16] MEDS: Acetaminophen 500 MG Tablet 1000 MG PO (20:37)
[2021-01-17 00:16] VITALS: BP 102/49; PULSE 66; RESP 18
[2021-01-17] MEDS: Ibuprofen 600 MG Tablet PO (04:26)
[2021-01-17 04:30] VITALS: BP 117/70; PULSE 75; RESP 16
[2021-01-17] MEDS: Acyclovir 200 MG Capsule 400 MG PO (06:19)
[2021-01-17 07:50] VITALS: BP 111/67; PULSE 67; RESP 16; TEMP 36.3
--- NOTE | 2021-01-17 08:16 | PCM.PN.OB ---
Subjective Subjective Patient seen at bedside. infant. Feeling good. Ambulating and voiding without difficulty. Denies pain. Desires discharge home today. Objective Data Objective Data Vital Signs: Vital Signs Temp Pulse Resp BP Pulse Ox 97.3 F L 67 16 111/67 98 01/17/21 07:50 01/17/21 07:50 01/17/21 07:50 01/17/21 07:50 01/16/21 12:44 Oxygen Delivery Method Room Air Weight: 208 lb Body Mass Index (BMI) 31.6 Intake & Output: Intake and Output for Last 24 Hours 01/15/21 01/16/21 01/17/21 23:59 23:59 23:59 Intake Total 1950 / 1950 Output Total 1200 / 1200 Balance 750 / 750 Lab / Micro Data Result Diagrams: 01/16/21 06:35 Labs: Laboratory Results - last 24 hr 01/16/21 06:35 Blood Type A POSITIVE Antibody Screen NEGATIVE ROS Eyes Eyes: Denies blurry vision, change in vision or spots in vision ENT HEENT: Denies dizziness or headache(s) Cardiovascular Cardiovascular: Denies abdominal pain, chest pain or dyspnea Respiratory/Chest Respiratory/Chest: Denies cough, dyspnea, shortness of breath at rest or shortness of breath with exertion Gastrointestinal Gastrointestinal: Denies abdominal pain, diarrhea or vomiting Genitourinary Genitourinary: Denies change in urinary stream, difficulty urinating or dysuria Musculoskeletal Musculoskeletal: Reports none Integumentary Integumentary: Denies rash Neurologic Neurologic: Denies dizziness, headache(s), memory loss or weakness Psychiatric Psychiatric: Reports none Physical Exam Const alert and no apparent distress General Appearance: cooperative and comfortable Exam Limitations: no limitations HEENT normocephalic Eyes General Eye: normal appearance of both eyes Neck full ROM General: normal visual inspection Chest Chest: symmetrical chest wall rise Resp normal respiratory effort and normal air movement Effort and Inspection: symmetric chest movement Auscultation: clear to auscultation bilaterally Cardio regular rate and regular rhythm GI normal to inspection, nondistended, normoactive bowel sounds Back/Spine normal ROM Extremity full ROM and no calf tenderness General Extremity: normal exam except as noted Skin no rashes or lesions noted Neuro CN's II-XII intact bilaterally Psych mental status grossly normal Assessment & Plan (1) Vaginal after : PLAN: PPD #1 Routine care support Discharge home later today
--- NOTE | 2021-01-17 08:19 | PCM.DC ---
Discharge Instructions Diet Discharge Diet: No restrictions Activity May resume sexual activity in: 6-8 weeks Weight Bearing Status: Weight bearing as tolerated Dressing / Incision Call your doctor if you observe: Fever of 101 or Higher, Inability to urinate, Using more than 1 pad per hour, Shortness of breath, Chest pain, Calf discomfort and Uncontrolled pain Follow Up Care Please Follow Up With: Keily Morales CNM When: 2 weeks virtual visit/ 6 weeks in office Test Results: Test results from this visit will be discussed in further detail at your follow-up appointment, if applicable. Discharge Plan Admission Admit Date/Time: 01/16/21 06:05 Primary Reason for Your Visit: Attending Provider: Yaneth Rubalcava Primary Care Provider: Raman Bishop III Instructions Patient Instructions: After a Vaginal Discharge Orders/Prescriptions Prescriptions: Continued albuterol sulfate 1 INHALER inhaler 1 - 2 puff inhalation Q6H PRN PRN (Reason: Shortness Of Breath) RF: 0 valacyclovir [Valtrex] 1 gram Tablet 500 mg PO BID RF: 0 [id number] 1 mg Tablet 1 tab PO DAILY RF: 0 Referrals / Follow Up: Raman Bishop III, MD [Primary Care Provider] - Disposition Disposition (needs filled in before D/C Order can be placed): Home, self care
[2021-01-17] MEDS: Prenatal Vits Tablet 1 TABLET PO (11:54)
[2021-01-17 12:05] LABS: Hematocrit 34.9 % (37-47); Hemoglobin 11.6 g/dL (12.0-15.0); Mean Corp Hgb Conc 33.2 g/dL (32-36); Mean Corpuscular Hgb 30.2 pg (27.0-32.0); Mean Corpuscular Volume 90.9 fL (81-99); Mean Platelet Vol. 10.2 fl (6.2-12.0); Platelet Count 202 K/mm3 (150-450); RBC Distribution Width CV 12.7 % (11.6-14.6); RBC Distribution Width SD 41.7 fl (35.1-43.9); Red Blood Count 3.84 M/mm3 (4.2-5.4); White Blood Count 11.2 K/mm3 (4.4-11.0)
[2021-01-17 13:22] VITALS: BP 104/56; PULSE 61; RESP 16; TEMP 36.4
--- NOTE | 2021-01-17 16:05 | CASEMGMT ---
SW Note Social Work Assessment [facility] Mom: Cecilia Hernandez G 3 P Now 2 PNC: Dr. Barrios Control: Patient reports they currently have no plan but then stated that fob may get a vastecomy Baby: Christina Amador 01[birth year] Apgars 8/9 Weight 3.52kg Born at 39 weeks Vaginal after C Section Bead Wire Taper: Dr. Benz Breast Feeding Mother's other children: Caleb, age 5. Mother said that Caleb came to the outside window and saw the . Mother said that Caleb is excited and commented that had perfect ears. Housing: Patient, FOB, Caleb (age 5) and reside in a house in [facility]. Transportation: Patient reports she and the FOB both have vehicles and are able to drive Supplies: Mother reports that has all the supplies. FOB said that he made a side car for the to sleep in which hooks to the side of the bed and Mother showed this sign writer letterer or painter the picture of the side car that forissa made for . FOB reported he was going to make a crib but ran out of time and then with the increasing cost of wood he decided to make a side car. Supports: FOB reports that he will be home this week and next week to assist with care for the . Patient said that her mother will be a support. Patient said that her mother and the fob's mother live 10 minutes away and are available to provide support. Education Level: Graduated High School. No learning issues Employment: Mother is employed at [employer] as Search Engine Optimization Consultant. Mother has been employed at [employer] since May. She will return to her job at [employer] in March. When mother returns to work patient's mother and the fob's mother will provide childcare. Agency Involvement: Patient reports that she had counseling in the past related to post depression. Patient had counseling at [facility] for 1 month. No other community agency involvement. CHRISTELLE Frank Rivera ( Patient's ) Time Together: 4 years. FOB said that Caleb was 9 months old when they got together. FOB involved at : FOB will be involved with . Employment: [employer] No other children Father of the baby mental marita/AOD/Domestic Violence history: None Mother reports she feels safe at home. 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 Patient said that she feels that the Post Depression was related to the home situation she was in at the time. Patient said that medication did not help and that she [facility] one [facility]. Patient denied any current Suicidal or Homicidal ideation. Patient said that when going through the post she was really emotional and had mood swings. Patient said that she and father of the baby have talked extensively about post depression and what the symptoms look like. SW educated patient and father on Post Depression and provided them with emotional support advising that Post Depression is not a character flaw and advised that in crisis the hospital is always available for support. Patient was educated on Shaken Baby Syndrome Patient was educated on Post Depression Patient was educated on Safe Sleeping Patient denied Alcohol and other Drug History. SW met with patient and the fob. Patient was breast feeding the when this sign writer letterer or painter entered the room. Patient smiled and was continually interacting and bonding wth the . Patient said that her current mood was super happy. Patient and fob were going home today and excited about that. FOB appeared to be supportive and was very happy to explain the bed that he made for the . Patient said that she and the fob have talked about post depression and feel educated on PPD. Patient and fob were educated on that if in crisis she can always return to the Emergency Room for assessment and patient and fob verbalized understanding. Patient and fob appeared to be comfortable with discharge and had no concerns. SW spoke to RNCarito, who voiced no discharge concerns. Patient was provided with handouts on Post Depression including Moms of New[facility] in [facility], Depression During and After , Counseling Resources, Ten facts about depression and anxiety, depression, Depression and Anxiety affects 1 in 7. Patient appreciative. Plan: Home with . Sherly REGALADO
== END 2021-01-17 14:15 | disposition home or self-care (01) | DRG 807 ==
LOC: WPOUT 06:06 → WP 06:06
PROVIDERS: Admitting Provider Obstetrics & Gynecology; PCP Family Medicine; Visit Provider Advanced Practice Midwife
DX: O34.219 Maternal care for unspecified type scar from previous cesarean delivery (principal); O69.81X0 Labor and delivery complicated by cord around neck, without compression, not applicable or unspecified; Z87.891 Personal history of nicotine dependence; Z3A.39 39 weeks gestation of pregnancy; Z37.0 Single live birth
CPT/HCPCS: 59050; 85025; 85027; 86850; 86900; 86901; 99218; J7120; A4216; G0378

== ENCOUNTER 2021-08-07 17:35 | Emergency (ER) | payer MEDICAID, SELFPAY ==
[2021-08-07 17:36] VITALS: BP 112/69; PULSE 89; RESP 18; TEMP 35.6; O2SAT 97; BMI 26.7
--- NOTE | 2021-08-07 18:53 | EX.ED.DYSGE1 ---
HPI History of Present Illness Chief Complaint: General Illness Informant: patient Onset/Context/Timing Onset: Today Context: Gradual Onset Timing: Continuous Quality: Aching Location: Generalized Worsened by: Nothing Relieved by: Nothing Associated Symptoms Associated Symptoms: Dizziness Narrative Narrative: Patient presents with nausea and vomiting that began today. Patient states it is gradually gotten worse. Patient admits admits to some general myalgias and headache. Patient also admits to a cough and a fever. Patient states her temperature at home was up to 102.8. Patient states she feels dizzy at times. Patient states nothing makes her symptoms better nothing makes it worse. Patient states her mother recently tested positive for COVID-19 and she is concerned that this is from COVID-19 infection. PFSH PFS Medical History depression Vaginal after Home Medications albuterol sulfate 1 - 2 puff INHALATION Q6H PRN PRN 09/26/19 [History Last Taken Unknown] njijpvhb-ipa-[id number]-FA 1 tab PO DAILY 01/16/21 [History Last Taken 01/15/21 21:00] valacyclovir [Valtrex] 500 mg PO BID 01/16/21 [History Last Taken 01/15/21 21:00] ondansetron 4 mg PO Q8H PRN PRN #10 tab 08/07/21 [Rx Last Taken Unknown] Allergy/AdvReac Type Severity Reaction Status Date / Time adhesive Allergy Rash Verified 08/07/21 17:38 Latex, Natural Rubber Allergy Rash Verified 08/07/21 17:38 Surgical History History of gynecologic surgery Previous section Social History Smoking Status: Smoker, status unknown ROS ROS ED Constitutional Constitutional ED: Denies chills or fever(s) Eyes Eyes: Denies blurry vision or change in vision ENT ENT ED: Denies rhinorrhea or sore throat Cardiovascular Cardiovascular: Denies chest pain or palpitations Respiratory/Chest Respiratory/Chest: Reports cough; Denies dyspnea Gastrointestinal Gastrointestinal: Reports nausea and vomiting Genitourinary Genitourinary ED: Denies dysuria or hematuria Musculoskeletal Musculoskeletal: Reports back pain and myalgias; Denies neck pain Integumentary Denies abscess or rash Neurologic Neurologic: Reports headache(s); Denies weakness Allergic/Immunologic Allergic/Immunologic ED: Denies mouth swelling or urticaria EXAM Physical Exam Const Vital Signs: 08/07/21 17:36 08/07/21 18:54 Temperature 96.1 F L Temperature Source Temporal Pulse Rate 89 Respiratory Rate 18 Respiratory Effort Normal Non-Labored Respiratory Pattern Normal Blood Pressure 112/69 Blood Pressure Mean 83 Pulse Ox 97 Oxygen Delivery Method Room Air Positive well nourished and well developed General Appearance ED: well developed HEENT Reports moist mucous membranes Neck supple and no JVD Resp normal respiratory effort and clear to auscultation bilaterally Cardio regular rate, regular rhythm and no murmurs GI normal to inspection, nondistended, normoactive bowel sounds and non-tender Palpation: soft Extremity normal to inspection General Extremety ED: Negative for edema or tenderness General Extremity: Negative for edema Neuro oriented x3, CN's II-XII intact bilaterally and no sensory deficits noted Sensorium / Orientation: alert Motor Exam: strength 5/5 throughout Psych mental status grossly normal Skin no rashes or lesions noted MDM MDM MDM Narrative Medical decision making narrative: Patient was given IV fluids, morphine, and Zofran. CBC was within normal limits. Comprehensive metabolic profile was normal. Serum hCG was negative. Urinalysis does not show any evidence of urinary tract infection. COVID-19 rapid antigen was obtained and was positive. Patient was advised of her findings. Patient requested referral for monoclonal antibody infusion. This was given. Patient was instructed to follow-up with her primary care physician in 5 to 7 days. Patient and spouse understood and were agreeable with the plan. All questions were answered. The following information was communicated to the patient or caregiver: Monoclonal antibody infusion is not an FDA approved drug. The FDA has authorized the emergency use of monoclonal antibody therapy. The patient had the option to refuse or accept treatment with monoclonal antibody therapy. The patient was informed that the number of people treated with monoclonal antibody therapy at this time is small. The potential benefits and the potential risks of monoclonal antibody therapy are not fully known. Potential benefits of monoclonal antibody include a reduced risk of progressing to severe COVID-19 infection. Potential risks or side effects of monoclonal antibody therapy include allergic reactions, side effects from injection including brief pain, bleeding, bruising of the skin, soreness, swelling, possible infection at the infusion site. The patient stated understanding of this information communicated and wished to proceed with monoclonal antibody infusion therapy. The patient is appropriate for the Monoclonal Antibody Infusion. The patient states understanding of this information communicated and wishes to proceed with monoclonal antibody infusion therapy. Patient agrees to receive either Balanivimab/Etesvimab or Casirivimab/Imdevimab upon availability. Lab Data Labs: Laboratory Results - last 24 hr 08/07/21 08/07/21 08/07/21 18:45 18:45 18:45 WBC 5.8 RBC 4.79 Hgb 14.6 Hct 42.5 MCV 88.7 MCH 30.5 MCHC 34.4 RDW Std Deviation 40.2 RDW Coeff of Ramses 12.2 Plt Count 191 MPV 9.9 Immature Gran % (Auto) 0.200 Neut % (Auto) 87.1 H Lymph % (Auto) 5.0 L [place] % (Auto) 7.4 Eos % (Auto) 0.0 Baso % (Auto) 0.3 Absolute Neuts (auto) 5.0 Absolute Lymphs (auto) 0.29 L Nucleated RBC % 0 Differential Comment SCANNED Sodium 137 Potassium 4.2 Chloride 103 Carbon Dioxide 27.0 Anion Gap 7 BUN 11 Creatinine 0.86 Estim Creat Clear Calc 100.88 Est GFR (MDRD) Af Amer 103 Est GFR (MDRD) Non-Af 85 BUN/Creatinine Ratio 12.7 Glucose 101 Calcium 9.7 Total Bilirubin 0.30 AST 26 ALT 23 Alkaline Phosphatase 96 Total Protein 9.1 H Albumin 4.6 Globulin 4.5 H Albumin/Globulin Ratio 1.0 Serum , Qual NEGATIVE Urine Color Urine Clarity Urine pH Ur Specific [place] Urine Protein Urine Glucose (UA) Urine Ketones Urine Occult Blood Urine Nitrite Urine Bilirubin Urine Urobilinogen Ur Leukocyte Esterase Urine RBC Urine WBC Ur Squamous Epith Cells Urine Bacteria Urine Mucus 08/07/21 19:43 WBC RBC Hgb Hct MCV MCH MCHC RDW Std Deviation RDW Coeff of Ramses Plt Count MPV Immature Gran % (Auto) Neut % (Auto) Lymph % (Auto) [place] % (Auto) Eos % (Auto) Baso % (Auto) Absolute Neuts (auto) Absolute Lymphs (auto) Nucleated RBC % Differential Comment Sodium Potassium Chloride Carbon Dioxide Anion Gap BUN Creatinine Estim Creat Clear Calc Est GFR (MDRD) Af Amer Est GFR (MDRD) Non-Af BUN/Creatinine Ratio Glucose Calcium Total Bilirubin AST ALT Alkaline Phosphatase Total Protein Albumin Globulin Albumin/Globulin Ratio Serum , Qual Urine Color Yellow Urine Clarity Clear Urine pH 6.0 Ur Specific [place] 1.020 Urine Protein 15 H Urine Glucose (UA) Normal Urine Ketones 15 H Urine Occult Blood 25 H Urine Nitrite Negative Urine Bilirubin Negative Urine Urobilinogen Normal Ur Leukocyte Esterase Negative Urine RBC 0-5 SEEN Urine WBC 0-5 SEEN Ur Squamous Epith Cells 0-5 SEEN Urine Bacteria RARE Urine Mucus 0 SEEN Discharge Plan Triage Chief Complaint: General Illness ED Provider: Brayan Baron Dx/Rx/DC Orders Clinical Impression: COVID-19 Instructions: Coronavirus Disease 2019 (COVID-19): Overview, Coronavirus Disease 2019 (COVID-19): Caring for Yourself or Others Prescriptions: New ondansetron [ondansetron] 4 MG tablet 4 mg PO Q8H PRN PRN (Reason: Nausea) Qty: 10 RF: 0 No Action albuterol sulfate 1 INHALER inhaler 1 - 2 puff inhalation Q6H PRN PRN (Reason: Shortness Of Breath) RF: 0 valacyclovir [Valtrex] 1 gram Tablet 500 mg PO BID RF: 0 [id number]-[id number]-FA 1 mg Tablet 1 tab PO DAILY RF: 0 Stand Alone Forms: Monoclonal Antibody Referral Primary Care Provider: Care Physician,No Primary Referrals: Waldemar Palomo MD [STAFF PHYSICIAN] - 5-7 Days Care Physician,No Primary [Primary Care Provider] - Disposition Disposition: Home, Self Care
[2021-08-07 18:56] LABS: Absolute Lymphocyte Count 0.29 X10^3/uL (0.83-4.51); Basophil# 0.02 X10^3/uL; Basophil% 0.3 % (0-1); Hematocrit 42.5 % (37-47); Hemoglobin 14.6 g/dL (12.0-15.0); Lymphocyte # 0.29 X10^3/ul (0.83-4.51); Mean Corp Hgb Conc 34.4 g/dL (32-36); Mean Corpuscular Hgb 30.5 pg (27.0-32.0); Mean Corpuscular Volume 88.7 fL (81-99); Mean Platelet Vol. 9.9 fl (6.2-12.0); Monocyte# 0.43 X10^3/uL; Monocyte% 7.4 % (0-10); NRBC Flagged by Analyzer 0 % (0-5); Neutrophil # 5.04 X10^3/uL (2.7-7.7); Neutrophil % 87.1 % (47-70); POSITIVE DIFFERENTIAL YES; Platelet Count 191 K/mm3 (150-450); RBC Distribution Width CV 12.2 % (11.6-14.6); RBC Distribution Width SD 40.2 fl (35.1-43.9); Red Blood Count 4.79 M/mm3 (4.2-5.4); White Blood Count 5.8 K/mm3 (4.4-11.0)
[2021-08-07 19:07] LABS: Internal QC Validated? YES +Cl - CLEAR BKGD; Pregnancy, Serum, hCG Quali. NEGATIVE Negative
[2021-08-07] MEDS: Ondansetron 4 MG/2 ML Vial IV (19:10)
[2021-08-07] MEDS: Morphine 4 MG/ML Syringe IV (19:11)
[2021-08-07 19:12] LABS: Differential Indicated SCAN CRITERIA MET
[2021-08-07 19:22] LABS: AST(SGOT) 26 U/L (15-37); Alanine Aminotransfer ALT/SGPT 23 U/L (13-56); Albumin, Serum 4.6 g/dL (3.2-5.0); Alkaline Phosphatase 96 U/L (45-117); Anion Gap 7 (5-15); BUN 11 mg/dL (7-18); BUN/Creat Ratio 12.7 RATIO (10-20); Calcium,Total 9.7 mg/dL (8.5-10.1); Chloride 103 mmol/L (98-107); Creatinine, Serum 0.86 mg/dL (0.55-1.02); EST Glomerular Filtration Rate 85 mL/min (>60); Est Glom Filt Rate - Afr Amer 103 mL/min (>60); Estimated Creatinine Clearance 100.88 ml/min; Globulin 4.5 g/dL (2.2-4.2); Glucose 101 mg/dL (74-106); Potassium 4.2 mmol/L (3.5-5.1); Protein, Total 9.1 g/dL (6.4-8.2); Sodium Level 137 mmol/L (136-145)
[2021-08-07 19:33] LABS: Differential Comment SCANNED
[2021-08-07 19:50] LABS: Mucous, Urine 0 SEEN /hpf (<or=2+)
[2021-08-07 20:03] LABS: Color, Urine Yellow (Yellow); Glucose, Dipstick Normal (Normal); Ketone-Dipstick 15 mg/dl (Negative); Leukocyte Esterase-Dipstick Negative /ul (Negative); Nitrite-Dipstick Negative (Negative); Occult Blood-Urine 25 /ul (Negative); Protein-Dipstick 15 mg/dl (Negative); Urine Bilirubin Dipstick Negative (Negative); Urine Clarity Clear (Clear); Urine Urobilinogen Normal (Normal)
[2021-08-07 20:04] LABS: Bacteria RARE /hpf (None Seen); Red Blood Cells-Urine 0-5 SEEN /hpf (0-5); Squamous Epithelial Cells - UA 0-5 SEEN /hpf (5-10); White Blood Cells 0-5 SEEN /hpf (0-5)
[2021-08-07 21:10] VITALS: BP 116/70; PULSE 82; RESP 18; O2SAT 97
== END 2021-08-07 21:11 | disposition home or self-care (01) ==
PROVIDERS: Emergency Provider Emergency Medicine
DX: U07.1 COVID-19 (principal); R42 Dizziness and giddiness; R11.2 Nausea with vomiting, unspecified; M79.10 Myalgia, unspecified site; R51.9 Headache, unspecified
CPT/HCPCS: 80053; 81001; 84703; 85025; 87426; 96361; 96374; 96375; 99283; J7040; J2405

== ENCOUNTER 2022-08-14 11:43 | Emergency (ER) | payer BC, MEDICAID, SELFPAY ==
[2022-08-14 11:45] VITALS: BP 125/79; PULSE 126; RESP 18; TEMP 36.6; O2SAT 98; BMI 25.8
--- NOTE | 2022-08-14 12:10 | EDS_ITS ---
HPI History of Present Illness Chief Complaint: Other, Pain/Inj Detail of Chief Complaint: Left breast tenderness and redness. Breast-feeding. Informant: patient Onset/Context/Timing Onset: Today and Yesterday Context: Gradual Onset Timing: Continuous Current Severity: Mild Maximum Severity: Mild Narrative Narrative: 27-year-old female no seen past medical history. Has been breast-feeding her [id number] for the last 19 months. She has been doing well. Has never had problems with mastitis or breast abscess. Last night and today felt some chills and discomfort in her left breast with some redness. Denies fever. And some chills. Had 1 episode of nausea and vomiting today. Was seen in urgent care today. Started on p.o. Keflex 4 times a day. Has an appointment to see her HOISTING MACHINE OPERATOR tomorrow. She is not diabetic. Prior similar symptoms: No Recent Illness/[facility]ospital[facility]: [facility] Medical History depression Vaginal after Home Medications albuterol sulfate 90 mcg/actuation aerosol inhaler 1 - 2 puff inhalation Q6H PRN PRN Shortness Of Breath 09/26/19 [History Last Taken Unknown] cnvrzfee-[id number]-Wz-FA 1 mg tablet 1 tab PO DAILY 01/16/21 [History Last Taken 01/15/21 21:00] valacyclovir 1 gram tablet (Valtrex) 500 mg PO BID 01/16/21 [History Last Taken 01/15/21 21:00] ondansetron 4 mg disintegrating tablet 4 mg PO Q8H PRN PRN Nausea #10 tabs 08/07/21 [Rx Last Taken Unknown] Allergy/AdvReac Type Severity Reaction Status Date / Time adhesive Allergy Rash Verified 08/14/22 11:45 Latex, Natural Rubber Allergy Rash Verified 08/14/22 11:45 Surgical History History of gynecologic surgery Previous section Social History Smoking Status: Smoker, status unknown tobacco type: cigarettes ROS ROS ED ROS Narrative Chills. Left breast tenderness and redness. Review of Systems ROS Unobtainable: Denies due to encephalopathy Constitutional Constitutional ED: Reports chills; Denies fever(s) Eyes Eyes: Denies blurry vision ENT ENT ED: Denies ear pain Cardiovascular Cardiovascular: Denies chest pain Respiratory/Chest Respiratory/Chest: Denies cough Gastrointestinal Gastrointestinal: Denies abdominal pain Genitourinary Genitourinary ED: Denies dysuria Musculoskeletal Musculoskeletal: Denies arthralgias Integumentary Denies abscess Neurologic Neurologic: Denies headache(s) Psychiatric Psychiatric: Denies anxiety Endocrine Endocrinology: Denies cold intolerance Hematologic/Lymphatic Hematologic/Lymphatic: Reports none Allergic/Immunologic Allergic/Immunologic ED: Denies mouth swelling, tongue swelling or urticaria EXAM Physical Exam Narrative Exam Narrative: 27-year-old female vital signs are stable afebrile. Clinically she does not look septic nor toxic nor dilated. He looks well. She is anxious and tearful. H EENT exam unremarkable. Moist mucous membranes. Neck nontender no lymphadenopathy. Lungs clear to auscultation bilaterally. Heart tachycardic no murmur. Abdomen soft nontender. Moving all 4 extremities. Neurovascular intact. Nontender no edema. Back nontender. Neurologic exam normal. No focal deficits. Emotionally she is anxious. With a female nurse present in room I did a breast exam her left breast on the left upper lateral aspect there is some redness and tenderness. I do not appreciate an abscess. There is no dimpling of the skin. There is no fluctuance. She has no axillary lymphadenopathy. Right breast is unremarkable. There is no discharge from either. The area of cellulitis is only may be an area of 2 x 3 inches. The entire breast is not red nor hot. Nor swollen. Const Vital Signs: 08/14/22 11:45 08/14/22 11:55 08/14/22 13:44 Temperature 98 F Temperature Source Temporal Pulse Rate 126 H 74 Respiratory Rate 18 16 Respiratory Effort Normal Non-Labored Respiratory Pattern Normal Blood Pressure 125/79 H Blood Pressure Mean 94 Pulse Ox 98 99 Oxygen Delivery Method Room Air Room Air Positive well nourished and well developed; Negative for obese, cachectic, contractures or unkempt General Appearance ED: well developed and NAD; Negative for unkempt, cachectic, contractures, cyanotic, diaphoretic or pallor Nutritional Appearance: Negative for cachectic or obese HEENT Reports moist mucous membranes; Denies dry mucous membranes Negative for trauma or tenderness Mouth ED: No dry mucous membranes Mouth: No dry mucous membranes Eyes PERRL and EOMs intact bilaterally General Eye ED: Negative for pale conjunctiva or scleral icterus Neck no lymphadenopathy, supple and no JVD General: Negative for tenderness Lymph Lymphatic: Negative for other Chest Wall inspection of chest normal and palpation of chest normal Chest Narrative: Except left breast early mastitis. No lymphadenopathy. Mild redness. No discharge. Breast exam with female nurse present in the room. Resp normal respiratory effort and clear to auscultation bilaterally Effort and Inspection: Negative for retractions Auscultation: Negative for rales, rhonchi or wheezes Cardio regular rhythm, S1 normal heart sound, S2 normal heart sound and no murmurs; Negative for regular rate Rate: tachycardic GI normal to inspection, nondistended, normoactive bowel sounds, non-tender, non- distended and no masses Inspection: Negative for abdominal distention Auscultation: normoactive bowel sounds Palpation: soft; Negative for tender or guarding Back/Spine no CVA tenderness General Back: Negative for CVA tenderness Cervical Spine: Negative for cervical spine tenderness Thoracic Spine / Upper Back: Negative for thoracic spinal tenderness Lumbar Spine / Lower Back: Negative for lumbar spinal tenderness Extremity normal to inspection General Extremety ED: Negative for edema or tenderness General Extremity: Negative for edema Neuro oriented x3 and CN's II-XII intact bilaterally Sensorium / Orientation: alert; Negative for orientation impaired, lethargic or stuporous Psych mental status grossly normal Appearance: Negative for unkempt Attitude: No agitated Mood & Affect: anxious and tearful; Negative for depressed Skin No no rashes or lesions noted, no wounds and skin turgor normal Skin Narrative: Left breast left upper quadrant of the breast redness and tenderness. Consistent with early mastitis. General Skin Exam: elasticity normal; Negative for jaundice or pallor Lesions: No lesion noted Rashes: rashes noted Trauma: Negative for abrasion Wounds: Negative for wounds noted MDM MDM MDM Narrative Medical decision making narrative: 27-year-old healthy female has been breast-feeding for 19 months has what appears to be early mastitis on the left breast. She does not look septic or toxic. She is very emotionally upset and tearful and anxious with this. I explained her we can treat this is as an outpatient. She wants further proof we will do screening labs. She will be given a dose of IV Unasyn. Repeat exam at 2:23 PM patient left prior to being discharged I can go over her labs with her I will attempt to call her at home. I do have her HOISTING MACHINE OPERATOR physician on page since she had a scheduled appointment to see her tomorrow. Lab Data Attestation: I reviewed the patient's lab results. Lab results narrative: CBC shows white count of 14.4. H&H 12.9 and 38.5. Platelets 231. Electrolytes show sodium 135 potassium 3.4. Gap of 9 normal BUN of 14 creatinine 0.90. Glucose of 104. Labs: Laboratory Results - last 24 hr 08/14/22 08/14/22 12:15 12:15 WBC 14.4 H RBC 4.40 Hgb 12.9 Hct 38.5 MCV 87.5 MCH 29.3 MCHC 33.5 RDW Std Deviation 38.2 RDW Coeff of Ramses 11.9 Plt Count 231 MPV 9.8 Immature Gran % (Auto) 0.600 Neut % (Auto) 88.7 H Lymph % (Auto) 4.5 L [place] % (Auto) 6.1 Eos % (Auto) 0.0 Baso % (Auto) 0.1 Absolute Neuts (auto) 12.8 H Absolute Lymphs (auto) 0.65 L Nucleated RBC % 0 Sodium 135 L Potassium 3.4 L Chloride 103 Carbon Dioxide 23.0 Anion Gap 9 BUN 14 Creatinine 0.90 Estim Creat Clear Calc 95.55 Est GFR (MDRD) Af Amer 97 Est GFR (MDRD) Non-Af 80 BUN/Creatinine Ratio 15.6 Glucose 104 Calcium 9.5 Discharge Plan Triage Chief Complaint: Other, Pain/Inj ED Provider: Albert Reina Dx/Rx/DC Orders Clinical Impression: Mastitis Instructions: ED Mastitis Prescriptions: No Action albuterol sulfate 1 INHALER inhaler 1 - 2 puff inhalation Q6H PRN PRN (Reason: Shortness Of Breath) valacyclovir [Valtrex] 1 gram Tablet 500 mg PO BID [id number] 1 mg Tablet 1 tab PO DAILY ondansetron [ondansetron] 4 MG tablet 4 mg PO Q8H PRN PRN (Reason: Nausea) Qty: 10 0RF Primary Care Provider: Care Physician,No Primary Referrals: Care Physician,No Primary [Primary Care Provider] - Claudia Roque MD [Med Staff - Active Staff] - 1 Day Activity Restrictions/Additional Instructions: Continue your current antibiotic, Keflex, 4 times a day as prescribed. Motrin and Tylenol for pain. Return if this is looking a lot worse. Spreading and getting worse. Follow-up with your HOISTING MACHINE OPERATOR doctor appointment tomorrow. Disposition Disposition: Home, Self Care
[2022-08-14 12:26] LABS: Absolute Lymphocyte Count 0.65 X10^3/uL (0.83-4.51); Absolute Neutrophil Count 12.8 X10^3/uL (2.0-7.7); Basophil# 0.01 X10^3/uL; Basophil% 0.1 % (0-1); Hematocrit 38.5 % (37-47); Hemoglobin 12.9 g/dL (12.0-15.0); Lymphocyte # 0.65 X10^3/ul (0.83-4.51); Lymphocyte % 4.5 % (19-41); Mean Corp Hgb Conc 33.5 g/dL (32-36); Mean Corpuscular Hgb 29.3 pg (27.0-32.0); Mean Corpuscular Volume 87.5 fL (81-99); Mean Platelet Vol. 9.8 fl (6.2-12.0); Monocyte# 0.88 X10^3/uL; Monocyte% 6.1 % (0-10); NRBC Flagged by Analyzer 0 % (0-5); Neutrophil # 12.76 X10^3/uL (2.7-7.7); Neutrophil % 88.7 % (47-70); Platelet Count 231 K/mm3 (150-450); RBC Distribution Width CV 11.9 % (11.6-14.6); RBC Distribution Width SD 38.2 fl (35.1-43.9); White Blood Count 14.4 K/mm3 (4.4-11.0)
[2022-08-14 12:40] LABS: Anion Gap 9 (5-15); BUN 14 mg/dL (7-18); BUN/Creat Ratio 15.6 RATIO (10-20); Calcium,Total 9.5 mg/dL (8.5-10.1); Chloride 103 mmol/L (98-107); EST Glomerular Filtration Rate 80 mL/min (>60); Est Glom Filt Rate - Afr Amer 97 mL/min (>60); Estimated Creatinine Clearance 95.55 ml/min; Glucose 104 mg/dL (74-106); Potassium 3.4 mmol/L (3.5-5.1); Sodium Level 135 mmol/L (136-145)
[2022-08-14] MEDS: Acetaminophen 500 MG Tablet 1000 MG PO (13:43)
[2022-08-14 13:44] VITALS: PULSE 74; RESP 16; O2SAT 99
== END 2022-08-14 14:31 | disposition home or self-care (01) ==
PROVIDERS: Emergency Provider Emergency Medicine; Visit Provider Emergency Medicine
DX: N61.0 Mastitis without abscess (principal); R68.83 Chills (without fever); F17.210 Nicotine dependence, cigarettes, uncomplicated; Z79.899 Other long term (current) drug therapy
CPT/HCPCS: 80048; 85025; 96365; 99284; A4216; J0295

== ENCOUNTER 2023-06-11 08:56 | Emergency (ER) | payer BC, SELFPAY ==
[2023-06-11 08:57] VITALS: BP 146/77; PULSE 107; RESP 22; TEMP 36.6; O2SAT 96; BMI 25.9
--- NOTE | 2023-06-11 09:09 | EKG12_ITS ---
Test Reason : STROKE ALERT Blood Pressure : / mmHG Vent. Rate : 069 BPM Atrial Rate : 069 BPM P-R Int : 174 ms QRS Dur : 084 ms QT Int : 402 ms P-R-T Axes : 066 063 036 degrees QTc Int : 430 ms Normal sinus rhythm with sinus arrhythmia Septal infarct (cited on or before 16-MAR-2014) Abnormal ECG Confirmed by ZACH ORNELAS, MIAH ([id number]), greeting card editor GEORGE TOWNSEND ([id number]) on 06/22/2023 7:35:59 AM Referred By: Confirmed By:HARSHIL SERRANO MD
--- NOTE | 2023-06-11 09:10 | CT_ITS ---
STUDY: CTA HEAD AND NECK WITH CONTRAST REASON FOR EXAM: Female, 28 years old. Neuro deficit, acute, stroke suspected. Right arm weakness. Right facial and right tongue tingling. RADIATION DOSAGE (If Supplied By Facility): CTDIvol = ( 17.99 ) mGy, DLP = ( 763.16 ) mGycm TECHNIQUE: CT angiography was performed with a multi-detector CT scanner. Data acquisition was obtained from the skull base through the vertex following intravenous administration of IV 100mL Isovue-370. MIP images were reconstructed from the axial data set. Post-processing of the angiographic images was performed, with multiplanar reformation and 3D reconstruction. Individualized dose optimization techniques were used for this CT. COMPARISON: No relevant priors. FINDINGS: Normal bilateral petrous carotid arteries. Normal right cavernous carotid artery with a normal supraclinoid bifurcation. Normal left cavernous carotid artery with a normal supraclinoid bifurcation. Normal right A1 segments of the anterior cerebral artery. Normal left A1 segments of the anterior cerebral artery. Normal intact anterior communicating artery (ACOM). Normal bilateral A2 segments of the anterior cerebral arteries. Normal right M1 and M2 segments of the middle cerebral arteries, with a normal M1 bifurcation. Normal left M1 and M2 segments of the middle cerebral arteries, with a normal M1 bifurcation. Normal right posterior communicating artery (PCOM). There is a persistent origin of the left posterior cerebral artery with absence of the posterior communicating artery (PCOM). Normal bilateral vertebral arteries. Normal basilar artery with a normal basilar bifurcation. The visualized bilateral superior cerebellar (SCA) arteries are normal. Normal bilateral P1, P2 and visualized P3 segments of the posterior cerebral arteries. There is no demonstrated aneurysm of the [place]. There is no demonstrated abnormality of the visualized brain. There is a prominent venous structure in the left side of the cerebrum extending from the region of the left posterior cerebral artery and ending in the region of the left transverse sinus. AVM should be ruled out. MR is recommended. AORTIC ARCH: Normal visualized aortic arch. Normal origins of the brachiocephalic, left common carotid, and left subclavian arteries. RIGHT CAROTID ARTERIES: Normal right common carotid artery (CCA). Normal right common carotid bulb. Normal origin of the right internal carotid (ICA) artery without a hemodynamically significant stenosis. Normal visualized cervical portion of the right internal carotid artery. Normal origin of the right external carotid artery (ECA). LEFT CAROTID ARTERIES: Normal left common carotid artery (CCA). Normal left common carotid bulb. Normal origin of the left internal carotid (ICA) artery without a hemodynamically significant stenosis. Normal visualized cervical portion of the left internal carotid artery. Normal origin of the left external carotid artery (ECA). VERTEBRAL ARTERIES: Normal bilateral vertebral arteries. 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 Correlation with MRI is recommended for further evaluation. N.B. : The above Results were Read Back by Marc Frey MD to Albert Reina and understanding confirmed on 06/11/2023 09:44:33 (ET). Electronically Signed: Marc Frey MD at 9:48 EDT ,
--- NOTE | 2023-06-11 09:14 | CT_ITS ---
STUDY: CT HEAD STROKE PROTOCOL W/O CONTRAST INJECTION REASON FOR EXAM: Female, 28 years old. STROKE RADIATION DOSAGE (If Supplied By Facility): CTDIvol = ( 44.99 ) mGy, DLP = ( 796.11 ) mGycm TECHNIQUE: Transaxial CT imaging of the brain was performed without administration of intravenous contrast material. Individualized dose optimization techniques were used for this CT. COMPARISON: Comparison is made with prior examination of March 12, 2015. FINDINGS: Normal soft tissue structures. Normal calvarium. Normal size ventricles and extra-axial spaces for the patient''s age. Normal white matter tracts of the cerebral hemispheres. There are faint, small punctate calcifications of the bilateral basal ganglia. The differential diagnostic considerations includes: Fahrs disease, or endocrine disorders (hyperparathyroidism, hypoparathyroidism, pseudohypoparathyroidism). The incidental discovery of basal ganglia calcifications in a patient less than 50 years of age merits investigation. Normal brainstem. Normal cerebellum. There is no intracranial hemorrhage. There are no findings of an acute ischemic infarction. Normal visualized paranasal sinuses. ASPECT score: 10 CT/STROKE Brain/Head without Cont IMPRESSION: Faint calcifications are seen in the basal ganglia bilaterally. This is unchanged. N.B. : The above Results were Read Back by Marc Frey MD to Dr Nuno MD, and understanding confirmed on 06/11/2023 09:37:47 (ET). Electronically Signed: Marc Frey MD at 9:39 EDT ,
--- NOTE | 2023-06-11 09:14 | ED.VIS.STROK ---
HPI History of Present Illness Chief Complaint: Neuro S/Sx Informant: patient Onset/Context/Timing Onset: Today Context: Sudden Onset Timing: Continuous Quality and Location: Positive for Right Face Paresthesia, Right Arm Parasthesia, Right Arm Weakness and Expressive Aphasia Current Severity: Gone Maximum Severity: Moderate Associated Symptoms Associated Symptoms: Positive for Headache; Negative for Nausea, Vomiting or Chest Pain Narrative Narrative: 28-year-old female no significant past medical history currently is 5 weeks . Ab1 with that being a miscarriage needing a D&C. No history of any blood clotting disorders. No prior history of stroke or mini stroke. No prior history of DVT or PE. Today she was dropping off a child to school at about 8:35 a.m. had sudden onset of right facial numbness,difficulty speaking, right arm numbness and weakness in her right hand where she could not roller picker her cell phone. Those symptoms have totally resolved. This lasted about 25 minutes. She has a mild headache. States last night in bed she felt palpitations. No cardiac history. Prior similar symptoms: No Recent Illness/Hospitalization: No [facility] Medical History depression Vaginal after Home Medications albuterol sulfate 90 mcg/actuation aerosol inhaler 1 - 2 puff inhalation Q6H PRN PRN Shortness Of Breath 09/26/19 [History Last Taken Unknown] [id number] 1 mg tablet 1 tab PO DAILY 01/16/21 [History Last Taken 06/11/23] valacyclovir 1 gram tablet (Valtrex) 500 mg PO BID 01/16/21 [History Last Taken 01/15/21 21:00] ondansetron 4 mg disintegrating tablet 4 mg PO Q8H PRN PRN Nausea #10 tabs 08/07/21 [Rx Last Taken Unknown] ondansetron 4 mg disintegrating tablet 4 mg PO Q8H PRN PRN Nausea #10 tabs 06/11/23 [Rx Last Taken Unknown] Allergy/AdvReac Type Severity Reaction Status Date / Time adhesive Allergy Rash Verified 06/11/23 08:57 Latex, Natural Rubber Allergy Rash Verified 06/11/23 08:57 Surgical History History of gynecologic surgery Previous section Social History Smoking Status: Smoker, status unknown tobacco type: cigarettes ROS ROS ED ROS Narrative Recent illness. Review of Systems ROS Unobtainable: Denies due to encephalopathy Constitutional Constitutional ED: Denies chills or fever(s) Eyes Eyes: Reports blurry vision right ENT ENT ED: Denies ear pain Cardiovascular Cardiovascular: Reports palpitations; Denies chest pain Respiratory/Chest Respiratory/Chest: Denies cough Gastrointestinal Gastrointestinal: Denies abdominal pain Genitourinary Genitourinary ED: Denies dysuria Musculoskeletal Musculoskeletal: Denies arthralgias Integumentary Denies abscess Neurologic Neurologic: Reports headache(s) Psychiatric Psychiatric: Denies anxiety Endocrine Endocrinology: Denies polydipsia Hematologic/Lymphatic Hematologic/Lymphatic: Denies easy bleeding, easy bruising or lymphadenopathy Allergic/Immunologic Allergic/Immunologic ED: Denies mouth swelling or urticaria EXAM Physical Exam Narrative Exam Narrative: 28-year-old female vital signs are stable afebrile. Initial blood pressure is 146/77. H EENT exam unremarkable. Pupils are round reactive light. Extraocular motions are intact. No facial droop. Currently no facial numbness. Normal speech. Tongue midline. Neck nontender. No lymphadenopathy. Lungs clear to auscultation bilaterally. Heart regular rhythm no murmur. Rate about 105. Abdomen soft, nontender, nondistended normal bowel sounds without peritoneal signs. Back nontender. Moving all 4 extremities. Neurovascularly intact. She has 5 out of 5 legal financial specialist strength bilaterally and says her right hand is back to baseline. Normal dorsi plantarflexion. Rapid hand movements are equal and symmetrical and normal. Fingertip to nose within normal limits. Her NIH score currently 0. Const Vital Signs: 06/11/23 08:57 06/11/23 09:16 06/11/23 09:20 Temperature 97.8 F Temperature Source Temporal Pulse Rate 107 H 72 Respiratory Rate 22 H 16 Blood Pressure 146/77 H 108/71 Blood Pressure Mean 100 83 Pulse Ox 96 98 98 Oxygen Delivery Method Room Air Room Air Room Air 06/11/23 09:34 06/11/23 11:51 Temperature Temperature Source Pulse Rate 70 72 Respiratory Rate 16 16 Blood Pressure 110/81 H 113/74 Blood Pressure Mean 90 87 Pulse Ox 100 98 Oxygen Delivery Method Room Air Room Air Positive well nourished and well developed; Negative for obese, cachectic, contractures or unkempt General Appearance ED: well developed and NAD; Negative for unkempt, cachectic or contractures Nutritional Appearance: Negative for cachectic or obese HEENT Reports moist mucous membranes atraumatic; Negative for trauma Nose: Negative for other Eyes PERRL and EOMs intact bilaterally General Eye ED: Negative for pale conjunctiva or scleral icterus Neck no lymphadenopathy, supple and no JVD General: Negative for tenderness Thyroid: Negative for other Chest Wall inspection of chest normal and palpation of chest normal Chest: Negative for other Resp normal respiratory effort and clear to auscultation bilaterally Effort and Inspection: Negative for retractions Auscultation: Negative for rales, rhonchi or wheezes Cardio no murmurs Rate: regular rate Rhythm: regular rhythm Heart Sounds: S1 normal and S2 normal GI normal to inspection, nondistended, normoactive bowel sounds, soft to palpation, non-tender, non-distended and no masses Inspection: Negative for abdominal distention Auscultation: normoactive bowel sounds Palpation: Negative for tender or guarding Bladder / Kidney Exam: No other Back/Spine no CVA tenderness General Back: Negative for CVA tenderness Cervical Spine: Negative for cervical spine tenderness Thoracic Spine / Upper Back: Negative for thoracic spinal tenderness Lumbar Spine / Lower Back: Negative for lumbar spinal tenderness Extremity normal to inspection General Extremety ED: Negative for deformity, edema or tenderness General Extremity: Negative for deformity or edema Neuro oriented x3, CN's II-XII intact bilaterally and no sensory deficits noted Sensorium / Orientation: alert, oriented to person, oriented to place and oriented to time; Negative for orientation impaired, confused, lethargic or stuporous Speech: speech normal Motor Exam: strength 5/5 throughout Psych mental status grossly normal Appearance: Negative for unkempt Attitude: No agitated Mood & Affect: anxious; Negative for depressed Attention / Concentration: Negative for other Skin no wounds General Skin Exam: Negative for jaundice Lesions: no lesions Rashes: no rashes Trauma: Negative for abrasion NIHSS NIHSS Initial: 1a Level of Consciousness: 0 1b LOC Questions (Score 2 if aphasic/stupor): 0 1c LOC Commands (Only score 1st attempt): 0 2 Best Gaze (If aphasic, use reflexive mvmts.): 0 3 Visual: 0 4 Facial Palsy: 0 5 Motor Arm Right (UN = amputation/fusion): 0 5 Motor Arm Left: 0 6 Motor Leg Right: 0 6 Motor Leg Left: 0 7 Limb ataxia (Only + if out of proportion): 0 8 Sensory (Aphasia/stupor=0 or 1, coma=2): 0 9 Best Language: 0 10 Dysarthria (mute, coma=2, intubated=UN): 0 11 Extinction and Inattention (only scored if +): 0 Total Score: 0 MDM MDM MDM Narrative Medical decision making narrative: 28-year-old female approximately 5 weeks . She has not had care as of yet. Prior to arrival had about a 25-minute episode of right upper extremity numbness and weakness, right facial numbness and blurry vision. Thinks she may have had some speech issues also. All has resolved now. Her current NIH is 0. Given she is and had a prior miscarriage this could be secondary to hypercoagulable state and clot or a TIA. She will undergo stroke protocol work-up. I am already spoken to the CAT scan. She will be shielded due to the . Repeat exam at 9:50 AM patient is doing well. Her NIH remains 0. The brain shows chronic calcification seen on prior study. CTA shows a venous malformation. There is no signs of bleed nor acute stroke nor any clots. Exam patient doing well at 12:44 PM. She will be discharged home. Her MRI was normal. I spoke to OB on-call Dr. Lilli Maharaj for the [facility]. They will follow-up with office and do further work-up. We discussed possibly hypercoagulable work-up. We are not can start her on any aspirin at this time due to the early first term . History & Record Review Discussion w/independent historian: Patient Additional record(s) reviewed:: Prior inpatient record, Prior outpatient record, Prior ED visit and Prior labs Lab Data Attestation: I reviewed the patient's lab results. Lab results narrative: Unremarkable. White count of 5. H&H 13 and 39. Platelets 230. PT/INR of 12 and 0.9. PTT of 25. Electrolytes unremarkable gap is 6. Normal BUN of 11 creatinine 0.9. Glucose 101. Troponin is normal at 5. Labs: Laboratory Results - last 24 hr 06/11/23 06/11/23 09:20 09:29 WBC 5.3 RBC 4.41 Hgb 13.1 Hct 39.0 MCV 88.4 MCH 29.7 MCHC 33.6 RDW Std Deviation 39.8 RDW Coeff of Ramses 12.4 Plt Count 230 MPV 9.3 Immature Gran % (Auto) 0.200 Neut % (Auto) 53.8 Lymph % (Auto) 34.2 Cloud % (Auto) 10.3 H Eos % (Auto) 0.9 Baso % (Auto) 0.6 Absolute Neuts (auto) 2.9 Absolute Lymphs (auto) 1.82 Nucleated RBC % 0.8 PT 12.4 INR 0.9 APTT 25.8 Sodium 136 Potassium 3.6 Chloride 106 Carbon Dioxide 24.0 Anion Gap 6 BUN 11 Creatinine 0.97 Estim Creat Clear Calc 87.88 Est GFR (MDRD) Af Amer 88 Est GFR (MDRD) Non-Af 73 BUN/Creatinine Ratio 11.3 Glucose 101 Calcium 9.1 Troponin I High Sens 5 POC Glucose 90 Radiography Chest X-Ray - ED: 1 View, Read by ED Physician, Read by Radiologist, Normal, Heart, Lungs, Mediastinum, Bony Structures and No Acute Disease Diagnostic Testing: Clinical Impression(s) from Imaging Studies Head/Neck CTA 06/11/23 09:10 IMPRESSION: 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 Correlation with MRI is recommended for further evaluation. N.B. : The above Results were Read Back by Marc Frey MD to Albert Reina and understanding confirmed on 06/11/2023 09:44:33 (ET). 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 Correlation with MRI is recommended for further evaluation. N.B. : The above Results were Read Back by Marc Frey MD to Albert Reina and understanding confirmed on 06/11/2023 09:44:33 (ET). Electronically Signed: Marc Frey MD at 9:48 EDT , Brain CT 06/11/23 09:14 IMPRESSION: Faint calcifications are seen in the basal ganglia bilaterally. This is unchanged. N.B. : The above Results were Read Back by Marc Frey MD to Dr Nuno MD, and understanding confirmed on 06/11/2023 09:37:47 (ET). Electronically Signed: Marc Frey MD at 9:39 EDT , ADDENDUM: 06/11/23 0945 IMPRESSION: Faint calcifications are seen in the basal ganglia bilaterally. This is unchanged. N.B. : The above Results were Read Back by Marc Frey MD to Dr Nuno MD, and understanding confirmed on 06/11/2023 09:37:47 (ET). Electronically Signed: Marc Frey MD at 9:39 EDT , Brain MRI 06/11/23 09:55 IMPRESSION: Normal MRI brain without contrast. Electronically Signed: Dc Monet MD at 11:52 EDT , Head MRA 06/11/23 10:03 IMPRESSION: 1. Normal MRA head. 2. No MRI evidence of any dysplastic arteries or dysplastic veins particularly along the left posterior cerebral artery and along the tentorium. COMMENT: My opinion of the CTA head rule out AVM). The CTA head done reasonably provided superior anatomical detail information as compared to MRA. This is normal prominent left superficial cortical vein coursing along the superior margin of the left tentorial leaf and draining posteriorly into the left transverse sinus. This is a developmental variation of normal. I do not see any converging veins draining into an intramedullary vein such as seen in focal DVA (developmental venous anomaly). Electronically Signed: Dc Monet MD at 12:05 EDT , Chest X-Ray 06/11/23 10:07 IMPRESSION: Normal x-ray examination of the chest. Electronically Signed: Marc Frey MD at 10:31 EDT , X-ray, portable, single view, interpreted both by myself and radiology shows no acute abnormality. Normal cardiac silhouette. Normal mediastinum and lungs. Rhythm Strip Rhythm Strip: Sinus Rhythm Rate: 69 Ectopy: None EKG Initial EKG: Attestation: I personally reviewed and interpreted this EKG as follows: Interpretation: Sinus Rhythm and No Acute Injury Pattern Comments: Normal sinus rhythm rate of 69 no acute signs of IL nor ischemia nor dysrhythmia. Discharge Plan Triage Chief Complaint: Neuro S/Sx ED Provider: Albert Reina Dx/Rx/DC Orders Clinical Impression: Facial paresthesia Instructions: ED Paraesthesias Prescriptions: New ondansetron 4 mg tablet,disintegrating 4 mg PO Q8H PRN PRN (Reason: Nausea) Qty: 10 0RF No Action albuterol sulfate 1 INHALER inhaler 1 - 2 puff inhalation Q6H PRN PRN (Reason: Shortness Of Breath) valacyclovir [Valtrex] 1 gram Tablet 500 mg PO BID [id number] 1 mg Tablet 1 tab PO DAILY ondansetron [ondansetron] 4 MG tablet 4 mg PO Q8H PRN PRN (Reason: Nausea) Qty: 10 0RF Primary Care Provider: Care Physician,No Primary Referrals: Karlos Maharaj MD [Med Staff - Active Staff] - As soon as possible Care Physician,No Primary [Primary Care Provider] - Activity Restrictions/Additional Instructions: Call and follow-up with the [facility] office today. Call them and get an appointment to be seen as soon as possible. I spoke to the on-call physician today Dr. Lilli Maharaj. Tell them you were seen in the emergency department and need follow-up soon. Disposition Disposition: Home, Self Care
[2023-06-11 09:16] VITALS: BP 108/71; PULSE 72; RESP 16; O2SAT 98
[2023-06-11 09:20] VITALS: O2SAT 98
[2023-06-11 09:31] LABS: Absolute Lymphocyte Count 1.82 X10^3/uL (0.83-4.51); Absolute Neutrophil Count 2.9 X10^3/uL (2.0-7.7); Basophil# 0.03 X10^3/uL; Basophil% 0.6 % (0-1); Eosinophil# 0.05 X10^3/uL; Eosinophils% 0.9 % (0-5); Hemoglobin 13.1 g/dL (12.0-15.0); Lymphocyte # 1.82 X10^3/ul (0.83-4.51); Lymphocyte % 34.2 % (19-41); Mean Corp Hgb Conc 33.6 g/dL (32-36); Mean Corpuscular Hgb 29.7 pg (27.0-32.0); Mean Corpuscular Volume 88.4 fL (81-99); Mean Platelet Vol. 9.3 fl (6.2-12.0); Monocyte# 0.55 X10^3/uL; Monocyte% 10.3 % (0-10); NRBC Flagged by Analyzer 0.8 % (0-5); Neutrophil # 2.86 X10^3/uL (2.7-7.7); Neutrophil % 53.8 % (47-70); Platelet Count 230 K/mm3 (150-450); RBC Distribution Width CV 12.4 % (11.6-14.6); RBC Distribution Width SD 39.8 fl (35.1-43.9); Red Blood Count 4.41 M/mm3 (4.2-5.4); White Blood Count 5.3 K/mm3 (4.4-11.0)
[2023-06-11 09:34] VITALS: BP 110/81; PULSE 70; RESP 16; O2SAT 100
[2023-06-11 09:43] LABS: International Normalized Ratio 0.9; Prothrombin Time (Protime)PT. 12.4 SECONDS (11.7-14.9)
[2023-06-11 09:44] LABS: Partial Thromboplast Time 25.8 Seconds (24.1-36.2)
[2023-06-11 09:50] LABS: Anion Gap 6 (5-15); BUN 11 mg/dL (7-18); BUN/Creat Ratio 11.3 RATIO (10-20); Calcium,Total 9.1 mg/dL (8.5-10.1); Chloride 106 mmol/L (98-107); Creatinine, Serum 0.97 mg/dL (0.55-1.02); EST Glomerular Filtration Rate 73 mL/min (>60); Est Glom Filt Rate - Afr Amer 88 mL/min (>60); Estimated Creatinine Clearance 87.88 ml/min; Glucose 101 mg/dL (74-106); Potassium 3.6 mmol/L (3.5-5.1); Sodium Level 136 mmol/L (136-145); Troponin-I HS 5 pg/mL (3.0-54.0)
--- NOTE | 2023-06-11 09:55 | MRI_ITS ---
EXAM: MR HEAD WITHOUT INTRAVENOUS CONTRAST CLINICAL INDICATION: right arm weakness and right vision change TECHNIQUE: Multiplanar and multisequence MR images of the brain were obtained without intravenous contrast. COMPARISON: No relevant prior studies available. FINDINGS: BRAIN AND EXTRA-AXIAL SPACES: Unremarkable. No intra- or extra-axial hemorrhage. No evidence of acute infarct. No intracranial mass or mass effect. There is preservation of the recinos/white matter interface. Posterior fossa structures are unremarkable. No diffusion restriction throughout the brain parenchyma. No focal signal abnormalities throughout the brain parenchyma in all pulse sequences. Normal ventricles and cisterns. No communicating or noncommunicating hydrocephalus. SELLA: Unremarkable. Normal sella turcica, pituitary gland, infundibular stalk, optic chiasm and hypothalamus. AUDITORY SYSTEM: Unremarkable. The internal auditory canals are patent. BONES/JOINTS: Unremarkable. No discrete lytic or blastic abnormalities. SINUSES: Unremarkable as visualized. Clear. MASTOID AIR CELLS: Unremarkable as visualized. Clear. ORBITS: Unremarkable as visualized. Both globes, extraocular muscles, optic nerves and retrobulbar fat appear unremarkable. VASCULATURE: Unremarkable as visualized. Normal flow voids in the major intracranial circulation. OTHERS: Prominent midline nasopharynx due to benign lymphoid hyperplasia. MRI/Brain without Contrast IMPRESSION: Normal MRI brain without contrast. Electronically Signed: Dc Monet MD at 11:52 EDT ,
[2023-06-11] MEDS: Acetaminophen 500 MG Tablet 1000 MG PO (09:58)
[2023-06-11 10:00] LABS: Bedside Glucose 90 mg/dL (74-106)
--- NOTE | 2023-06-11 10:03 | MRI_ITS ---
INDICATION: VASCULAR MALFORMATION ON CTA EXAMINATION: MRA - MRA Head W/O Contrast TECHNIQUE: Routine [place]/brain 3D time of flight MR angiogram protocol was performed without gadolinium. 3D reconstructions were reviewed. IV Contrast Dosage and Agent: None. COMPARISON: None. FINDINGS: --Anterior Circulation: ICAs: No significant stenosis at the intracranial/visualized segments. ACAs: No significant stenosis at the visualized segments. ACOM: Present. MCAs: No significant stenosis at the visualized segments. --Posterior Circulation: PCOMs: Patent right posterior communicating artery. No visible left posterior communicating artery. highway painter helper: No significant stenosis at the visualized segments. BASILAR ARTERY: No significant stenosis. VERTEBRAL ARTERIES: No significant stenosis at the intradural/visualized segments. No intracranial aneurysm. No dysplastic arteries or dysplastic veins particularly in the left MACHINE HOSTLER region and along the left tentorium. MRI/MRA Head ONLY without Contrast IMPRESSION: 1. Normal MRA head. 2. No MRI evidence of any dysplastic arteries or dysplastic veins particularly along the left posterior cerebral artery and along the tentorium. COMMENT: My opinion of the CTA head rule out AVM). The CTA head done reasonably provided superior anatomical detail information as compared to MRA. This is normal prominent left superficial cortical vein coursing along the superior margin of the left tentorial leaf and draining posteriorly into the left transverse sinus. This is a developmental variation of normal. I do not see any converging veins draining into an intramedullary vein such as seen in focal DVA (developmental venous anomaly). Electronically Signed: Dc Monet MD at 12:05 EDT ,
--- NOTE | 2023-06-11 10:07 | RAD_ITS ---
STUDY: X-RAY CHEST REASON FOR EXAM: Female, 28 years old. Neuro deficit, acute, stroke suspected TECHNIQUE: Single AP portable view of the chest. COMPARISON: Comparison is made with prior study dated August 18, 2015. FINDINGS: EKG electrodes are seen. The lungs are clear and expanded. There is no demonstrated pleural abnormality. Normal size heart. Normal mediastinum and rosy. Normal visualized pulmonary arteries. Normal visualized aortic arch and descending thoracic aorta. Normal visualized thoracic spine. Normal visualized ribs, clavicles, and shoulders. There is no demonstrated abnormality of the visualized soft tissue structures of the upper abdomen. RAD/Chest 1 View IMPRESSION: Normal x-ray examination of the chest. Electronically Signed: Marc Frey MD at 10:31 EDT ,
[2023-06-11 10:08] VITALS: BMI 25.9
[2023-06-11] MEDS: Ondansetron 4 MG/2 ML Vial IV (10:40)
[2023-06-11 11:51] VITALS: BP 113/74; PULSE 72; RESP 16; O2SAT 98
[2023-06-11 12:57] VITALS: BP 118/67; PULSE 71; RESP 15; O2SAT 98
== END 2023-06-11 12:57 | disposition home or self-care (01) ==
PROVIDERS: Emergency Provider Emergency Medicine; Visit Provider Emergency Medicine
DX: O99.891 Other specified diseases and conditions complicating pregnancy (principal); R20.2 Paresthesia of skin; Z3A.01 Less than 8 weeks gestation of pregnancy
CPT/HCPCS: 70450; 70496; 70498; 70544; 70551; 71045; 80048; 82962; 84484; 85025; 85610; 85730; 93005; 96374; 99285; Q9967; J2405

== ENCOUNTER 2023-07-06 22:19 | Emergency (ER) | payer BC, SELFPAY ==
[2023-07-06 22:20] VITALS: BP 120/83; PULSE 72; RESP 16; TEMP 36.3; O2SAT 99; BMI 25.8
--- NOTE | 2023-07-06 22:40 | EX.ED.DYSGE1 ---
HPI History of Present Illness Chief Complaint: Nausea/Vomiting Informant: patient Onset/Context/Timing Onset: Days Narrative Narrative: Patient presents secondary to nausea and vomiting with . Patient is approximately 8 weeks with her fourth . She states the last 2 days she has had significant nausea and vomiting and cannot keep anything down. She does report some lightheadedness. She did have problems with significant vomiting with her prior pregnancies as well. She has Zofran at home but states it is not helping. She also has vitamin B6. [facility] Medical History depression Vaginal after Home Medications albuterol sulfate 90 mcg/actuation aerosol inhaler 1 - 2 puff inhalation Q6H PRN PRN Shortness Of Breath 09/26/19 [History Last Taken Unknown] [id number] 1 mg tablet 1 tab PO DAILY 01/16/21 [History Last Taken 06/11/23] valacyclovir 1 gram tablet (Valtrex) 500 mg PO BID 01/16/21 [History Last Taken 01/15/21 21:00] ondansetron 4 mg disintegrating tablet 4 mg PO Q8H PRN PRN Nausea #10 tabs 08/07/21 [Rx Last Taken Unknown] ondansetron 4 mg disintegrating tablet 4 mg PO Q8H PRN PRN Nausea #10 tabs 06/11/23 [Rx Last Taken Unknown] cephalexin 500 mg capsule 500 mg PO BID #10 caps 07/07/23 [Rx Last Taken Unknown] promethazine 25 mg rectal suppository 25 mg [place] Q6H PRN nausea and vomiting #12 ea 07/07/23 [Rx Last Taken Unknown] promethazine 25 mg tablet 25 mg PO Q4H PRN nausea and vomiting #20 tabs 07/07/23 [Rx Last Taken Unknown] Allergy/AdvReac Type Severity Reaction Status Date / Time adhesive Allergy Rash Verified 07/06/23 22:20 Latex, Natural Rubber Allergy Rash Verified 07/06/23 22:20 Surgical History History of gynecologic surgery Previous section Social History Smoking Status: Never smoker ROS ROS ED Constitutional Constitutional ED: Denies chills or fever(s) Eyes Eyes: Denies discharge from eye(s) ENT ENT ED: Denies discharge from eye(s), rhinorrhea or sore throat Cardiovascular Cardiovascular: Denies chest pain or palpitations Respiratory/Chest Respiratory/Chest: Denies cough or dyspnea Gastrointestinal Gastrointestinal: Reports abdominal pain, nausea and vomiting; Denies diarrhea Genitourinary Genitourinary ED: Reports other Details: Urine dark in color ; Denies dysuria Musculoskeletal Musculoskeletal: Denies back pain or extremity pain Integumentary Denies Abrasions or rash Neurologic Neurologic: Reports paresthesias and other Details: Brief episode of left arm and neck numbness and tingling earlier today associated with position change. ; Denies headache(s) or weakness Psychiatric Psychiatric: Denies anxiety or depression Allergic/Immunologic Allergic/Immunologic ED: Denies lip swelling or urticaria EXAM Physical Exam Const Vital Signs: 07/06/23 22:20 Temperature 97.3 F L Temperature Source Temporal Pulse Rate 72 Respiratory Rate 16 Blood Pressure 120/83 H Blood Pressure Mean 95 Pulse Ox 99 Positive well nourished and well developed General Appearance ED: well developed HEENT Reports dry mucous membranes Mouth ED: Yes dry mucous membranes Mouth: dry mucous membranes Eyes EOMs intact bilaterally Neck no lymphadenopathy Chest Wall inspection of chest normal and palpation of chest normal Resp normal respiratory effort and clear to auscultation bilaterally Cardio regular rate and regular rhythm GI Auscultation: hypoactive bowel sounds Palpation: soft Extremity normal to inspection Neuro oriented x3 and no sensory deficits noted Motor Exam: strength 5/5 throughout Psych mental status grossly normal Skin no rashes or lesions noted MDM MDM MDM Narrative Medical decision making narrative: IV line will be established. Patient given IM Phenergan along with IV fluids. Labwork obtained to evaluate for leukocytosis, anemia, and electrolyte derangement. Urinalysis obtained to evaluate for infection/hematuria. History & Record Review Discussion w/independent historian: Patient Lab Data Attestation: I reviewed the patient's lab results. Labs: Laboratory Results - last 24 hr 07/06/23 07/07/23 22:55 01:21 WBC 9.4 RBC 4.55 Hgb 13.2 Hct 39.7 MCV 87.3 MCH 29.0 MCHC 33.2 RDW Std Deviation 38.0 RDW Coeff of Ramses 11.9 Plt Count 236 MPV 9.7 Immature Gran % (Auto) 0.200 Neut % (Auto) 69.7 Lymph % (Auto) 23.6 [place] % (Auto) 5.8 Eos % (Auto) 0.4 Baso % (Auto) 0.3 Absolute Neuts (auto) 6.5 Absolute Lymphs (auto) 2.22 Nucleated RBC % 0 Sodium 135 L Potassium 3.5 Chloride 103 Carbon Dioxide 26.0 Anion Gap 6 BUN 13 Creatinine 0.75 Estim Creat Clear Calc 113.66 Est GFR (MDRD) Af Amer 118 Est GFR (MDRD) Non-Af 98 BUN/Creatinine Ratio 17.2 Glucose 90 Calcium 9.7 Urine Color Yellow Urine Clarity Clear Urine pH 6.0 Ur Specific [place] 1.020 Urine Protein 15 H Urine Glucose (UA) Normal Urine Ketones 150 A* Urine Occult Blood Negative Urine Nitrite Negative Urine Bilirubin Negative Urine Urobilinogen 1 H Ur Leukocyte Esterase 500 H Urine RBC 0 SEEN Urine WBC 0-5 SEEN Ur Squamous Epith Cells 0-5 SEEN Urine Bacteria 2+ Urine Mucus 0 SEEN Treatment and Re-Evaluation :: CBC and chemistry studies are unremarkable. Glucose is normal at 90. Urinalysis does reveal 150 ketones as well as 2+ bacteria with 0-5 white cells. Patient is tolerating ice chips here and has received a liter of IV fluids. I will write her prescription for Phenergan, both tablets as well as suppositories if she is unable to keep the tablets down. I will write her a course of Keflex for her bacteriuria. Discharge Plan Triage Chief Complaint: Nausea/Vomiting ED Provider: Binta Carter Dx/Rx/DC Orders Clinical Impression: Bacteriuria, First trimester , Vomiting Instructions: 1st Trimester, ED Vomiting (Adult) Prescriptions: New promethazine 25 mg tablet 25 mg PO Q4H PRN (Reason: nausea and vomiting) Qty: 20 0RF promethazine 25 mg suppository 25 mg [place] Q6H PRN (Reason: nausea and vomiting) Qty: 12 0RF cephalexin 500 mg capsule 500 mg PO BID Qty: 10 0RF No Action albuterol sulfate 1 INHALER inhaler 1 - 2 puff inhalation Q6H PRN PRN (Reason: Shortness Of Breath) valacyclovir [Valtrex] 1 gram Tablet 500 mg PO BID [id number] 1 mg Tablet 1 tab PO DAILY ondansetron [ondansetron] 4 MG tablet 4 mg PO Q8H PRN PRN (Reason: Nausea) Qty: 10 0RF ondansetron 4 mg tablet,disintegrating 4 mg PO Q8H PRN PRN (Reason: Nausea) Qty: 10 0RF Primary Care Provider: Care Physician,No Primary Referrals: Claudia Roque MD [Med Staff - Active Staff] - 3-5 Days if not improving Care Physician,No Primary [Primary Care Provider] - Disposition Disposition: Home, Self Care
[2023-07-06] MEDS: proMETHazine 25 MG/ML Syringe 12.5 MG IM (23:05)
[2023-07-06] MEDS: 0.9% Normal Saline (1000mL) 1,000 ML 1000 ML IV (23:05)
[2023-07-06 23:07] LABS: Absolute Lymphocyte Count 2.22 X10^3/uL (0.83-4.51); Absolute Neutrophil Count 6.5 X10^3/uL (2.0-7.7); Basophil# 0.03 X10^3/uL; Basophil% 0.3 % (0-1); Eosinophil# 0.04 X10^3/uL; Eosinophils% 0.4 % (0-5); Hematocrit 39.7 % (37-47); Hemoglobin 13.2 g/dL (12.0-15.0); Lymphocyte # 2.22 X10^3/ul (0.83-4.51); Lymphocyte % 23.6 % (19-41); Mean Corp Hgb Conc 33.2 g/dL (32-36); Mean Corpuscular Volume 87.3 fL (81-99); Mean Platelet Vol. 9.7 fl (6.2-12.0); Monocyte# 0.54 X10^3/uL; Monocyte% 5.8 % (0-10); NRBC Flagged by Analyzer 0 % (0-5); Neutrophil # 6.54 X10^3/uL (2.7-7.7); Neutrophil % 69.7 % (47-70); Platelet Count 236 K/mm3 (150-450); RBC Distribution Width CV 11.9 % (11.6-14.6); Red Blood Count 4.55 M/mm3 (4.2-5.4); White Blood Count 9.4 K/mm3 (4.4-11.0)
[2023-07-06 23:25] LABS: Anion Gap 6 (5-15); BUN 13 mg/dL (7-18); BUN/Creat Ratio 17.2 RATIO (10-20); Calcium,Total 9.7 mg/dL (8.5-10.1); Chloride 103 mmol/L (98-107); Creatinine, Serum 0.75 mg/dL (0.55-1.02); EST Glomerular Filtration Rate 98 mL/min (>60); Est Glom Filt Rate - Afr Amer 118 mL/min (>60); Estimated Creatinine Clearance 113.66 ml/min; Glucose 90 mg/dL (74-106); Potassium 3.5 mmol/L (3.5-5.1); Sodium Level 135 mmol/L (136-145)
--- NOTE | 2023-07-07 00:09 | ED.RN ---
PT STATES NUMBNESS TO LEFT SIDE OF FACE AND ARM- BRIEFLY. HAS RESOLVED. SAME SYMPTOMS AT HOME AND HAS HX OF SAME.
[2023-07-07 01:27] LABS: Mucous, Urine 0 SEEN /hpf (<or=2+); Red Blood Cells-Urine 0 SEEN /hpf (0-5)
[2023-07-07 01:33] LABS: Color, Urine Yellow (Yellow); Glucose, Dipstick Normal (Normal); Leukocyte Esterase-Dipstick 500 /ul (Negative); Nitrite-Dipstick Negative (Negative); Occult Blood-Urine Negative /ul (Negative); Protein-Dipstick 15 mg/dl (Negative); Urine Bilirubin Dipstick Negative (Negative); Urine Clarity Clear (Clear); Urine Urobilinogen 1 mg/dl (Normal)
[2023-07-07 01:42] LABS: Ketone-Dipstick 150 mg/dl (Negative)
[2023-07-07 01:48] LABS: Bacteria 2+ /hpf (None Seen); Squamous Epithelial Cells - UA 0-5 SEEN /hpf (5-10); White Blood Cells 0-5 SEEN /hpf (0-5)
== END 2023-07-07 02:07 | disposition home or self-care (01) ==
PROVIDERS: Emergency Provider Emergency Medicine; Visit Provider Emergency Medicine
DX: O21.9 Vomiting of pregnancy, unspecified (principal); Z3A.08 8 weeks gestation of pregnancy; O99.891 Other specified diseases and conditions complicating pregnancy; R82.71 Bacteriuria; Z79.899 Other long term (current) drug therapy
CPT/HCPCS: 80048; 81001; 85025; 87086; 96360; 96361; 96372; 99282; J7030; A4216

== ENCOUNTER 2023-07-13 17:10 | Emergency (ER) | payer BC, MEDICAID, SELFPAY ==
[2023-07-13 17:10] VITALS: BP 96/70; PULSE 62; RESP 17; TEMP 36.2; O2SAT 98; BMI 25.0
[2023-07-13] MEDS: 0.9% Normal Saline (1000mL) 1,000 ML 999 ML IV (18:37)
[2023-07-13 19:26] LABS: Anion Gap 7 (5-15); BUN 10 mg/dL (7-18); Calcium,Total 9.3 mg/dL (8.5-10.1); Chloride 102 mmol/L (98-107); Creatinine, Serum 0.67 mg/dL (0.55-1.02); EST Glomerular Filtration Rate 113 mL/min (>60); Est Glom Filt Rate - Afr Amer 136 mL/min (>60); Estimated Creatinine Clearance 127.23 ml/min; Glucose 78 mg/dL (74-106); Potassium 3.7 mmol/L (3.5-5.1); Sodium Level 134 mmol/L (136-145)
[2023-07-13] MEDS: Ondansetron 4 MG/2 ML Vial IV (19:28)
--- NOTE | 2023-07-13 19:45 | EDS_ITS ---
HPI <LULY Wolf - Last Filed: 07/13/23 21:06> History of Present Illness Chief Complaint: Nausea/Vomiting Narrative Narrative: Patient presenting today due to nausea and vomiting. She reports that she has vomited about 10 times today. She reports a history of hyperemesis gravidarum which has been consistent with her previous pregnancies as well. She is G4, P2 and is currently 8 weeks and 6 days along. She denies any abdominal pain, fever, chills, hematemesis, urinary symptoms, and vaginal bleeding. PFSH <LULY Wolf - Last Filed: 07/13/23 21:06> [facility] Medical History depression Vaginal after Home Medications albuterol sulfate 90 mcg/actuation aerosol inhaler 1 - 2 puff inhalation Q6H PRN PRN Shortness Of Breath 09/26/19 [History Last Taken Unknown] [id number] 1 mg tablet 1 tab PO DAILY 01/16/21 [History Last Taken 06/11/23] valacyclovir 1 gram tablet (Valtrex) 500 mg PO BID 01/16/21 [History Last Taken 01/15/21 21:00] ondansetron 4 mg disintegrating tablet 4 mg PO Q8H PRN PRN Nausea #10 tabs 08/07/21 [Rx Last Taken Unknown] ondansetron 4 mg disintegrating tablet 4 mg PO Q8H PRN PRN Nausea #10 tabs 06/11/23 [Rx Last Taken Unknown] cephalexin 500 mg capsule 500 mg PO BID #10 caps 07/07/23 [Rx Last Taken Unknown] promethazine 25 mg rectal suppository 25 mg [place] Q6H PRN nausea and vomiting #12 ea 07/07/23 [Rx Last Taken Unknown] promethazine 25 mg tablet 25 mg PO Q4H PRN nausea and vomiting #20 tabs 07/07/23 [Rx Last Taken Unknown] Allergy/AdvReac Type Severity Reaction Status Date / Time adhesive Allergy Rash Verified 07/06/23 22:20 Latex, Natural Rubber Allergy Rash Verified 07/06/23 22:20 metoclopramide [From Reglan] AdvReac Other Verified 07/13/23 17:11 Surgical History History of gynecologic surgery Previous section Social History Smoking Status: Never smoker ROS <LULY Wolf - Last Filed: 07/13/23 21:06> ROS ED Constitutional Constitutional ED: Denies chills or fever(s) Cardiovascular Cardiovascular: Denies chest pain Respiratory/Chest Respiratory/Chest: Denies cough or dyspnea Gastrointestinal Gastrointestinal: Reports nausea and vomiting; Denies abdominal pain, constipation or diarrhea Genitourinary Genitourinary ED: Denies dysuria, hematuria or urinary urgency Musculoskeletal Musculoskeletal: Denies arthralgias or myalgias Integumentary Denies rash Neurologic Neurologic: Denies weakness EXAM <LULY Wolf - Last Filed: 07/13/23 21:06> Physical Exam Const Vital Signs: 07/13/23 17:10 Temperature 97.1 F L Temperature Source Temporal Pulse Rate 62 Respiratory Rate 17 Blood Pressure 96/70 Blood Pressure Mean 78 Pulse Ox 98 Oxygen Delivery Method Room Air Positive well nourished, well developed and no apparent distress General Appearance ED: well developed HEENT Reports normocephalic and head/scalp atraumatic Mouth ED: Yes moist mucous membranes normal Eyes PERRL and EOMs intact bilaterally Neck full ROM and supple Chest Wall inspection of chest normal Resp normal respiratory effort and clear to auscultation bilaterally Cardio regular rate and regular rhythm GI soft to palpation, non-tender, non-distended and no masses Back/Spine normal ROM and normal to inspection Extremity normal to inspection and full ROM Neuro oriented x3, CN's II-XII intact bilaterally, moves all extremities, no focal motor deficits and no sensory deficits noted Sensorium / Orientation: awake and alert Psych mental status grossly normal and thought process normal Skin no rashes or lesions noted and no wounds <Dc Farrell MD - Last Filed: 07/13/23 22:48> Physical Exam Const Vital Signs: 07/13/23 17:10 Temperature 97.1 F L Temperature Source Temporal Pulse Rate 62 Respiratory Rate 17 Blood Pressure 96/70 Blood Pressure Mean 78 Pulse Ox 98 Oxygen Delivery Method Room Air MDM <LULY Wolf - Last Filed: 07/13/23 21:06> MDM MDM Narrative Medical decision making narrative: Patient presenting due to hyperemesis gravidarum. She has been seen in this emergency department for similar symptoms. She is nontoxic-appearing and in no acute distress. She will be given IV fluids and Zofran. She reports that her COMMUNITY HEALTH REPRESENTATIVE is trying to get her a Zofran pump and would like her electrolytes to be checked. She sees Dr. Barrios. She is not having any vaginal bleeding or abdominal pain. BMP shows slight hyponatremia at 134. On reexamination patient reports improvement of her symptoms. She is tolerating p.o. fluids and crackers. She has nausea medication at home to use as needed. Patient's urine does show mucus, leukocyte esterase, and a few white blood cells. However, her previous urine culture from 07/07 did not show any growth and she was treated with Keflex at that time. I did speak with her COMMUNITY HEALTH REPRESENTATIVE who is agreeable with the plan, she does not recommend treating patient for UTI with any antibiotics. She reports that patient should be getting a Zofran pump this week. She will follow-up with her in the office and patient will be discharged home in stable condition. She is comfortable with plan. Lab Data Attestation: I reviewed the patient's lab results. Labs: Laboratory Results - last 24 hr 07/13/23 07/13/23 18:30 19:35 Sodium 134 L Potassium 3.7 Chloride 102 Carbon Dioxide 25.0 Anion Gap 7 BUN 10 Creatinine 0.67 Estim Creat Clear Calc 127.23 Est GFR (MDRD) Af Amer 136 Est GFR (MDRD) Non-Af 113 BUN/Creatinine Ratio 15.0 Glucose 78 Calcium 9.3 Urine Color Yellow Urine Clarity Sl. Cloudy Urine pH 6.0 Ur Specific [place] 1.025 Urine Protein 30 H Urine Glucose (UA) Normal Urine Ketones 150 A* Urine Occult Blood 10 H Urine Nitrite Negative Urine Bilirubin Negative Urine Urobilinogen 1 H Ur Leukocyte Esterase 100 H Urine RBC 0-5 SEEN Urine WBC 5-10 SEEN Ur Squamous Epith Cells 0 SEEN Amorphous Sediment 1+ URATE Urine Bacteria RARE Urine Mucus 3+ <Dc Farrell MD - Last Filed: 07/13/23 22:48> [facility] Narrative Medical decision making narrative: Patient presenting due to hyperemesis gravidarum. She has been seen in this emergency department for similar symptoms. She is nontoxic-appearing and in no acute distress. She will be given IV fluids and Zofran. She reports that her COMMUNITY HEALTH REPRESENTATIVE is trying to get her a Zofran pump and would like her electrolytes to be checked. She sees Dr. Barrios. She is not having any vaginal bleeding or abdominal pain. BMP shows slight hyponatremia at 134. On reexamination patient reports improvement of her symptoms. She is tolerating p.o. fluids and crackers. She has nausea medication at home to use as needed. Patient's urine does show mucus, leukocyte esterase, and a few white blood cells. However, her previous urine culture from 07/07 did not show any growth and she was treated with Keflex at that time. I did speak with her COMMUNITY HEALTH REPRESENTATIVE who is agreeable with the plan, she does not recommend treating patient for UTI with any antibiotics. She reports that patient should be getting a Zofran pump this week. She will follow-up with her in the office and patient will be discharged home in stable condition. She is comfortable with plan. Dr. Farrell: I have personally performed a face to face assessment of the patient and have reviewed the CATHERINE Note. I performed a substantive portion of the visit including all aspects of the following. My malik findings include: History is nausea and vomiting with , history of hyperemesis gravidarum. Sent by COMMUNITY HEALTH REPRESENTATIVE to check electrolytes. Exam is afebrile. Vital signs noted. Regular rate and rhythm. Lungs clear to auscultation bilaterally. Abdomen soft and nontender. Medical Decision Making: Check BMP. IV fluids. Antiemetics. Check UA. As above. I reviewed her laboratory work. Discussed with COMMUNITY HEALTH REPRESENTATIVE, Dr. Barrios. Ihsan marroquin. Other additions or changes: [None] Lab Data Labs: Laboratory Results - last 24 hr 07/13/23 07/13/23 18:30 19:35 Sodium 134 L Potassium 3.7 Chloride 102 Carbon Dioxide 25.0 Anion Gap 7 BUN 10 Creatinine 0.67 Estim Creat Clear Calc 127.23 Est GFR (MDRD) Af Amer 136 Est GFR (MDRD) Non-Af 113 BUN/Creatinine Ratio 15.0 Glucose 78 Calcium 9.3 Urine Color Yellow Urine Clarity Sl. Cloudy Urine pH 6.0 Ur Specific [place] 1.025 Urine Protein 30 H Urine Glucose (UA) Normal Urine Ketones 150 A* Urine Occult Blood 10 H Urine Nitrite Negative Urine Bilirubin Negative Urine Urobilinogen 1 H Ur Leukocyte Esterase 100 H Urine RBC 0-5 SEEN Urine WBC 5-10 SEEN Ur Squamous Epith Cells 0 SEEN Amorphous Sediment 1+ URATE Urine Bacteria RARE Urine Mucus 3+ Discharge Plan Triage Chief Complaint: Nausea/Vomiting ED Midlevel Provider: Gabi Amor ED Provider: Dc Farrell Dx/Rx/DC Orders Clinical Impression: Hyperemesis gravidarum Instructions: ED Hyperemesis Gravidarum Prescriptions: No Action albuterol sulfate 1 INHALER inhaler 1 - 2 puff inhalation Q6H PRN PRN (Reason: Shortness Of Breath) valacyclovir [Valtrex] 1 gram Tablet 500 mg PO BID [id number] 1 mg Tablet 1 tab PO DAILY ondansetron [ondansetron] 4 MG tablet 4 mg PO Q8H PRN PRN (Reason: Nausea) Qty: 10 0RF ondansetron 4 mg tablet,disintegrating 4 mg PO Q8H PRN PRN (Reason: Nausea) Qty: 10 0RF promethazine 25 mg tablet 25 mg PO Q4H PRN (Reason: nausea and vomiting) Qty: 20 0RF promethazine 25 mg suppository 25 mg [place] Q6H PRN (Reason: nausea and vomiting) Qty: 12 0RF cephalexin 500 mg capsule 500 mg PO BID Qty: 10 0RF Primary Care Provider: Care Physician,No Primary Referrals: Care Physician,No Primary [Primary Care Provider] - Activity Restrictions/Additional Instructions: Follow-up with COMMUNITY HEALTH REPRESENTATIVE and return for any worsening of your symptoms. Disposition Disposition: Home, Self Care Discharge Date/Time: 07/13/23 21:48
[2023-07-13 19:59] LABS: Squamous Epithelial Cells - UA 0 SEEN /hpf (5-10)
[2023-07-13 20:04] LABS: Color, Urine Yellow (Yellow); Glucose, Dipstick Normal (Normal); Leukocyte Esterase-Dipstick 100 /ul (Negative); Nitrite-Dipstick Negative (Negative); Occult Blood-Urine 10 /ul (Negative); Protein-Dipstick 30 mg/dl (Negative); Specific Gravity, Urine 1.025 (1.002-1.030); Urine Bilirubin Dipstick Negative (Negative); Urine Clarity Sl. Cloudy (Clear); Urine Urobilinogen 1 mg/dl (Normal)
[2023-07-13 20:06] LABS: Ketone-Dipstick 150 mg/dl (Negative)
[2023-07-13 20:12] LABS: Bacteria RARE /hpf (None Seen); Mucous, Urine 3+ /hpf (<or=2+); Red Blood Cells-Urine 0-5 SEEN /hpf (0-5); White Blood Cells 5-10 SEEN /hpf (0-5)
[2023-07-13 20:13] LABS: Amorphous Sediment 1+ URATE
[2023-07-13] MEDS: 0.9% Normal Saline (500mL Bag) 500 ML 999 ML IV (20:24)
== END 2023-07-13 21:48 | disposition home or self-care (01) ==
PROVIDERS: Physician Assistant; Emergency Provider Emergency Medicine; Visit Provider Emergency Medicine
DX: O21.1 Hyperemesis gravidarum with metabolic disturbance (principal); Z79.899 Other long term (current) drug therapy; Z3A.08 8 weeks gestation of pregnancy
CPT/HCPCS: 80048; 81001; 96361; 96374; 99283; J7030; J7040; A4216; J2405

== ENCOUNTER 2023-08-01 10:14 | Emergency (ER) | payer BC, MEDICAID, SELFPAY ==
[2023-08-01 10:15] VITALS: BP 101/62; PULSE 55; RESP 16; TEMP 35.7; O2SAT 100; BMI 24.3
--- NOTE | 2023-08-01 10:59 | EKG12_ITS ---
Test Reason : SYNCOPE Blood Pressure : / mmHG Vent. Rate : 059 BPM Atrial Rate : 059 BPM P-R Int : 184 ms QRS Dur : 084 ms QT Int : 410 ms P-R-T Axes : 051 047 014 degrees QTc Int : 405 ms Sinus bradycardia with sinus arrhythmia Septal infarct (cited on or before 16-MAR-2014) Abnormal ECG Confirmed by JOHN ORNELAS, CHARANJIT ([id number]), electronic news gathering editor GEORGE TOWNSEND ([id number]) on 08/11/2023 8:48:59 AM Referred By: Confirmed By:CHARANJIT LOPEZ MD
--- NOTE | 2023-08-01 11:00 | EDS_ITS ---
HPI History of Present Illness Chief Complaint: Syncope Informant: patient, spouse/S.O. and EMS Narrative Narrative: 28-year-old female presenting to the emergency department the chief complaint of syncope. Patient states that she was shopping when she began to feel hot and lightheaded. She states her vision tunneled and her hearing started to decrease. States that she tried to sit down but found herself passed out and EMS was being called. She is approximately 11 weeks . She states that this has been rough in terms of nausea but she has been trying to stay hydrated. She denies any chest pain. She does note that prior to passing out she did feel 3 consecutive beats of her heart. [facility] Medical History depression Vaginal after Home Medications albuterol sulfate 90 mcg/actuation aerosol inhaler 1 - 2 puff inhalation Q6H PRN PRN Shortness Of Breath 09/26/19 [History Last Taken Unknown] [id number] 1 mg tablet 1 tab PO DAILY 01/16/21 [History Last Taken 06/11/23] valacyclovir 1 gram tablet (Valtrex) 500 mg PO BID 01/16/21 [History Last Taken 01/15/21 21:00] ondansetron 4 mg disintegrating tablet 4 mg PO Q8H PRN PRN Nausea #10 tabs 08/07/21 [Rx Last Taken Unknown] ondansetron 4 mg disintegrating tablet 4 mg PO Q8H PRN PRN Nausea #10 tabs 06/11/23 [Rx Last Taken Unknown] cephalexin 500 mg capsule 500 mg PO BID #10 caps 07/07/23 [Rx Last Taken Unknown] promethazine 25 mg rectal suppository 25 mg [place] Q6H PRN nausea and vomiting #12 ea 07/07/23 [Rx Last Taken Unknown] promethazine 25 mg tablet 25 mg PO Q4H PRN nausea and vomiting #20 tabs 07/07/23 [Rx Last Taken Unknown] Allergy/AdvReac Type Severity Reaction Status Date / Time adhesive Allergy Rash Verified 08/01/23 10:15 Latex, Natural Rubber Allergy Rash Verified 08/01/23 10:15 metoclopramide [From Reglan] AdvReac Other Verified 08/01/23 10:15 Surgical History History of gynecologic surgery Previous section Social History Smoking Status: Never smoker ROS ROS ED Constitutional Constitutional ED: Denies chills, fever(s) or weight loss Eyes Eyes: Denies change in vision or diplopia ENT ENT ED: Denies ear pain, rhinorrhea or sore throat Cardiovascular Cardiovascular: Reports palpitations and other Details: Syncope ; Denies chest pain, orthopnea or racing heartbeat Respiratory/Chest Respiratory/Chest: Denies cough, dyspnea or orthopnea Gastrointestinal Gastrointestinal: Denies abdominal pain, diarrhea, nausea or vomiting Genitourinary Genitourinary ED: Denies dysuria, hematuria or urinary frequency Musculoskeletal Musculoskeletal: Denies arthralgias or myalgias Integumentary Denies abscess or rash Neurologic Neurologic: Denies headache(s) or weakness Psychiatric Psychiatric: Denies anxiety, depression, suicidal ideation or suicidal thoughts Endocrine Endocrinology: Denies polydipsia, polyphagia or polyuria Allergic/Immunologic Allergic/Immunologic ED: Denies mouth swelling, tongue swelling or urticaria EXAM Physical Exam Const Vital Signs: 08/01/23 10:15 08/01/23 10:29 Temperature 96.3 F L Temperature Source Temporal Pulse Rate 55 L Respiratory Rate 16 Respiratory Effort Normal Non-Labored Respiratory Pattern Normal Blood Pressure 101/62 Blood Pressure Mean 75 Pulse Ox 100 Oxygen Delivery Method Room Air Positive well nourished and well developed General Appearance ED: well developed HEENT Reports normocephalic, head/scalp atraumatic and moist mucous membranes Eyes PERRL and EOMs intact bilaterally Neck no lymphadenopathy, supple and no JVD Resp normal respiratory effort and clear to auscultation bilaterally Cardio regular rate, regular rhythm and no murmurs GI normal to inspection, nondistended, normoactive bowel sounds and non-tender Palpation: soft Back/Spine no CVA tenderness and normal ROM Extremity normal to inspection General Extremety ED: Negative for edema General Extremity: Negative for edema Neuro oriented x3 and CN's II-XII intact bilaterally Sensorium / Orientation: alert Motor Exam: strength 5/5 throughout Psych mental status grossly normal Mood & Affect: Negative for depressed or tearful Skin no rashes or lesions noted and no wounds MDM MDM MDM Narrative Medical decision making narrative: Bedside ultrasound performed by this physician's shows a single live intrauterine with heart rate of 154. Good movement. Adequate amniotic fluid. No free fluid noted in the pelvis. EKG shows a sinus bradycardia with a ventricular rate of 59 bpm. My independent interpretation of the chest x-ray is no improved process normal mediastinal silhouette. Patient has a hemoglobin 11.6 which is most likely physiologic anemia . History & Record Review Discussion w/independent historian: EMS personnel, Patient and Significant other Lab Data Attestation: I reviewed the patient's lab results. Labs: Laboratory Results - last 24 hr 08/01/23 11:07 WBC 7.1 RBC 3.97 L Hgb 11.6 L Hct 35.4 L MCV 89.2 MCH 29.2 MCHC 32.8 RDW Std Deviation 39.8 RDW Coeff of Ramses 12.3 Plt Count 194 MPV 9.8 Immature Gran % (Auto) 0.300 Neut % (Auto) 79.2 H Lymph % (Auto) 14.3 L [place] % (Auto) 5.5 Eos % (Auto) 0.3 Baso % (Auto) 0.4 Absolute Neuts (auto) 5.6 Absolute Lymphs (auto) 1.01 Nucleated RBC % 0 Radiography Diagnostic Testing: Clinical Impression(s) from Imaging Studies Chest X-Ray 08/01/23 11:20 IMPRESSION: No interval change. Normal x-ray examination of the chest. Electronically Signed: Jani Stafford MD at 11:29 EST Reading Location ID and State: [address] [place] [address] , Service support , Discharge Plan Triage Chief Complaint: Syncope ED Provider: Morris Villar Dx/Rx/DC Orders Clinical Impression: First trimester , Syncope Instructions: ED Fainting, Uncertain Cause Prescriptions: No Action albuterol sulfate 1 INHALER inhaler 1 - 2 puff inhalation Q6H PRN PRN (Reason: Shortness Of Breath) valacyclovir [Valtrex] 1 gram Tablet 500 mg PO BID [id number] 1 mg Tablet 1 tab PO DAILY ondansetron [ondansetron] 4 MG tablet 4 mg PO Q8H PRN PRN (Reason: Nausea) Qty: 10 0RF ondansetron 4 mg tablet,disintegrating 4 mg PO Q8H PRN PRN (Reason: Nausea) Qty: 10 0RF promethazine 25 mg tablet 25 mg PO Q4H PRN (Reason: nausea and vomiting) Qty: 20 0RF promethazine 25 mg suppository 25 mg [place] Q6H PRN (Reason: nausea and vomiting) Qty: 12 0RF cephalexin 500 mg capsule 500 mg PO BID Qty: 10 0RF Primary Care Provider: Care Physician,No Primary Referrals: Claudia Roque MD [Med Staff - Active Staff] - Keep [facility] appointment Care Physician,No Primary [Primary Care Provider] - Disposition Disposition: Home, Self Care
--- NOTE | 2023-08-01 11:20 | RAD_ITS ---
STUDY: X-RAY CHEST REASON FOR EXAM: Female, 28 years old. Syncope. . TECHNIQUE: Single frontal view of the chest. COMPARISON: June 11, 2023 FINDINGS: The lungs are clear and expanded. There is no demonstrated pleural abnormality. Normal size heart. Normal mediastinum and rosy. Normal visualized pulmonary arteries. Normal visualized aortic arch and descending thoracic aorta. Normal visualized thoracic spine. Normal visualized ribs, clavicles, and shoulders. No abnormality of the visualized soft tissue structures of the upper abdomen. RAD/Chest 1 View (Portable) IMPRESSION: No interval change. Normal x-ray examination of the chest. Electronically Signed: Jani Stafford MD at 11:29 EST ,
[2023-08-01 11:21] LABS: Absolute Lymphocyte Count 1.01 X10^3/uL (0.83-4.51); Absolute Neutrophil Count 5.6 X10^3/uL (2.0-7.7); Basophil# 0.03 X10^3/uL; Basophil% 0.4 % (0-1); Eosinophil# 0.02 X10^3/uL; Eosinophils% 0.3 % (0-5); Hematocrit 35.4 % (37-47); Hemoglobin 11.6 g/dL (12.0-15.0); Lymphocyte # 1.01 X10^3/ul (0.83-4.51); Lymphocyte % 14.3 % (19-41); Mean Corp Hgb Conc 32.8 g/dL (32-36); Mean Corpuscular Hgb 29.2 pg (27.0-32.0); Mean Corpuscular Volume 89.2 fL (81-99); Mean Platelet Vol. 9.8 fl (6.2-12.0); Monocyte# 0.39 X10^3/uL; Monocyte% 5.5 % (0-10); NRBC Flagged by Analyzer 0 % (0-5); Neutrophil # 5.58 X10^3/uL (2.7-7.7); Neutrophil % 79.2 % (47-70); Platelet Count 194 K/mm3 (150-450); RBC Distribution Width CV 12.3 % (11.6-14.6); RBC Distribution Width SD 39.8 fl (35.1-43.9); Red Blood Count 3.97 M/mm3 (4.2-5.4); White Blood Count 7.1 K/mm3 (4.4-11.0)
[2023-08-01 11:34] LABS: Anion Gap 5 (5-15); BUN 10 mg/dL (7-18); BUN/Creat Ratio 14.4 RATIO (10-20); Calcium,Total 9.1 mg/dL (8.5-10.1); Chloride 106 mmol/L (98-107); Creatinine, Serum 0.69 mg/dL (0.55-1.02); EST Glomerular Filtration Rate 107 mL/min (>60); Est Glom Filt Rate - Afr Amer 130 mL/min (>60); Estimated Creatinine Clearance 123.54 ml/min; Glucose 78 mg/dL (74-106); Potassium 3.7 mmol/L (3.5-5.1); Sodium Level 136 mmol/L (136-145)
[2023-08-01 12:09] VITALS: BP 97/57; PULSE 69; RESP 16; O2SAT 98
== END 2023-08-01 12:11 | disposition home or self-care (01) ==
LOC: ED 12:09
PROVIDERS: Emergency Provider Emergency Medicine; Visit Provider Emergency Medicine
DX: O26.891 Other specified pregnancy related conditions, first trimester (principal); R55 Syncope and collapse; R11.0 Nausea; R00.1 Bradycardia, unspecified; Z79.899 Other long term (current) drug therapy; Z3A.11 11 weeks gestation of pregnancy
CPT/HCPCS: 71045; 80048; 85025; 93005; 99284

== ENCOUNTER 2023-10-27 16:00 | Outpatient (CLI) | payer BC, MEDICAID, SELFPAY ==
[2023-10-27 16:11] VITALS: PULSE 70; O2SAT 88
[2023-10-27 16:12] VITALS: PULSE 75; O2SAT 100
[2023-10-27 16:22] VITALS: BP 104/51; PULSE 74
[2023-10-27 16:26] VITALS: BMI 27.5
[2023-10-27 16:58] VITALS: BP 88/54; PULSE 73
[2023-10-27 16:59] VITALS: BP 109/59; PULSE 66
--- NOTE | 2023-10-27 20:37 | OB.TRI.NOTE ---
HPI - General General Date of Admission: 10/27/23 Date of Service: 10/27/23 Chief Complaint: fall HPI Narrative GENE WEAVER, is a 28 F who presents at 24 weeks with a fall. Tripped and slid down the couch to her belly. No pain or bleeding. RH positive Maternal Data Information Final KOKO: 02/16/24 Gestational age: 24 PFSH PFSH Medical History depression Vaginal after Home Medications albuterol sulfate 90 mcg/actuation aerosol inhaler 1 - 2 puff inhalation Q6H PRN PRN Shortness Of Breath 09/26/19 [History Last Taken Unknown] yvlscddf-ilo-Ty-FA 1 mg tablet 1 tab PO DAILY 01/16/21 [History Last Taken 06/11/23] valacyclovir 1 gram tablet (Valtrex) 500 mg PO BID 01/16/21 [History Last Taken 01/15/21 21:00] ondansetron 4 mg disintegrating tablet 4 mg PO Q8H PRN PRN Nausea #10 tabs 08/07/21 [Rx Last Taken Unknown] ondansetron 4 mg disintegrating tablet 4 mg PO Q8H PRN PRN Nausea #10 tabs 06/11/23 [Rx Last Taken Unknown] cephalexin 500 mg capsule 500 mg PO BID #10 caps 07/07/23 [Rx Last Taken Unknown] promethazine 25 mg rectal suppository 25 mg MA Q6H PRN nausea and vomiting #12 ea 07/07/23 [Rx Last Taken Unknown] promethazine 25 mg tablet 25 mg PO Q4H PRN nausea and vomiting #20 tabs 07/07/23 [Rx Last Taken Unknown] Allergy/AdvReac Type Severity Reaction Status Date / Time adhesive Allergy Rash Verified 08/01/23 10:15 Latex, Natural Rubber Allergy Rash Verified 08/01/23 10:15 metoclopramide [From Reglan] AdvReac Other Verified 08/01/23 10:15 Surgical History History of gynecologic surgery Previous section Social History Smoking Status: Never smoker History Elective abortions Hx Para 1 Spontaneous abortions Hx # Term Pregnancies Ectopic pregnancies Hx # Pregnancies Multiple births # of living children NST FHR Rate Baby A Baseline: 130 Variability:: Moderate Accelerations:: 10 x 10 Decelerations:: None NST Reactive:: Appropriate for gestational age FHR Category:: Category I Uterine Activity:: none Assessment & Plan (1) 24 weeks gestation of : (2) Fall: QUALIFIERS: Encounter type: initial encounter Qualified Code(s): W19.XXXA - Unspecified fall, initial encounter
== END 2023-10-27 17:00 | disposition home or self-care (01) ==
LOC: WPOUT 16:07 → WP 16:08
PROVIDERS: Referring Provider Obstetrics & Gynecology; Visit Provider Obstetrics & Gynecology
DX: Z34.92 Encounter for supervision of normal pregnancy, unspecified, second trimester (principal); Z3A.24 24 weeks gestation of pregnancy; W01.190A Fall on same level from slipping, tripping and stumbling with subsequent striking against furniture, initial encounter
CPT/HCPCS: 59025; 59050; 99221; G0378

== ENCOUNTER 2024-01-24 16:24 | Emergency (ER) | payer BC, MEDICAID, SELFPAY ==
[2024-01-24 16:25] VITALS: BP 107/65; PULSE 80; RESP 18; TEMP 36.9; O2SAT 97; BMI 30.5
--- NOTE | 2024-01-24 16:35 | ED.VIS.GI ---
HPI HPI - GI History of Present Illness Chief Complaint: Abd Pain Detail of Chief Complaint: Nausea, vomiting and watery diarrhea since yesterday morning. Informant: spouse/S.O. Abdominal Pain/Flank Pain Onset: Today and Yesterday Context: Gradual Onset Timing: Intermittent Quality: Sharp Location: Epigastric Current Severity: Gone Maximum Severity: Mild Worsened by: Nothing Relieved by: Nothing Nausea/Vomiting/Emesis GI Symptom: Positive for Nausea and Vomiting Onset: Today Severity: Mild Diarrhea/Melena/Hematochezia GI Symptom: Positive for Diarrhea Onset: Today and Yesterday Stool Quality: Positive for Watery Severity: Mild Associated Symptoms Associated Symptoms: Negative for Dysuria, Frequency, Hematuria or Urgency Narrative Narrative: 28-year-old female no significant past medical history. She is Ab1 with that being a miscarriage. Currently 36+ weeks . They recently were camping on and Thursday. Thursday she started having watery diarrhea. Intermittent upper abdominal discomfort but currently she is pain-free. No lower abdominal pain. No dysuria or hematuria. No vaginal bleeding. Says this does not feel like she is having any type of pelvic cramps or in labor. Denies any fever. Only prior abdominal surgery was D&C and . Still has her gallbladder and appendix. She has not had any fever. Currently pain-free. Prior similar symptoms: Yes Recent Illness/Hospitalization: No PFSH PFSH Medical History Vaginal after depression Home Medications ?Medication ?Instructions ?Recorded ?Last Taken ?Type [id number]-[id number]-[id number] 1 mg 1 tab PO DAILY 01/16/21 06/11/23 History tablet magnesium glycinate 200 mg PO DAILY 01/24/24 Unknown History ondansetron 4 mg disintegrating 4 mg PO Q4H #10 tabs 01/24/24 Unknown Rx tablet Allergy/AdvReac Type Severity Reaction Status Date / Time adhesive Allergy Rash Verified 01/24/24 16:27 Latex, Natural Rubber Allergy Rash Verified 01/24/24 16:27 metoclopramide (From Reglan) AdvReac Other Verified 01/24/24 16:27 Surgical History History of gynecologic surgery Previous section Social History Smoking Status: Never smoker ROS ROS ED ROS Narrative Nausea, vomiting diarrhea. Intermittent upper abdominal pain. Review of Systems ROS Unobtainable: Denies due to encephalopathy Constitutional Constitutional ED: Denies chills or fever(s) ENT ENT ED: Denies ear pain Cardiovascular Cardiovascular: Denies chest pain Respiratory/Chest Respiratory/Chest: Denies cough or dyspnea Gastrointestinal Gastrointestinal: Reports abdominal pain, diarrhea, nausea and vomiting; Denies constipation or melena Genitourinary Genitourinary ED: Denies dysuria or hematuria Musculoskeletal Musculoskeletal: Denies arthralgias or back pain Integumentary Denies abscess or Abrasions Neurologic Neurologic: Denies headache(s) Psychiatric Psychiatric: Denies anxiety or depression Endocrine Endocrinology: Denies polydipsia, polyphagia or polyuria Hematologic/Lymphatic Hematologic/Lymphatic: Denies easy bleeding Allergic/Immunologic Allergic/Immunologic ED: Denies mouth swelling, tongue swelling or urticaria EXAM Physical Exam Narrative Exam Narrative: Well-appearing 28-year-old female. Vital signs stable afebrile. No distress. present in room. H EENT exam pupils round reactive light. Mildly dry mucous membranes. Neck nontender no lymphadenopathy. Lungs clear to auscultation bilaterally. Heart regular rhythm no murmur. Rate 80. Abdomen soft normal bowel sounds no peritoneal signs. Gravid nontender uterus. No abdominal reproducible pain. Right upper or right lower quadrant unremarkable. No hernia or mass. No signs of obstruction. Moving all 4 extremities. Nontender no edema. Normal strength. Back nontender. She is awake and alert. Const Vital Signs: 01/24/24 16:25 Temperature 98.4 F Temperature Source Temporal Pulse Rate 80 Respiratory Rate 18 Blood Pressure 107/65 Blood Pressure Mean 79 Pulse Ox 97 Oxygen Delivery Method Room Air Positive well nourished and well developed; Negative for obese, cachectic, contractures or unkempt General Appearance ED: well developed and NAD; Negative for unkempt, cachectic, contractures or pallor Nutritional Appearance: Negative for cachectic or obese HEENT Reports dry mucous membranes; Denies moist mucous membranes normocephalic and atraumatic; Negative for trauma or tenderness Mouth ED: Yes dry mucous membranes Mouth: dry mucous membranes Eyes PERRL General Eye ED: Negative for pale conjunctiva or scleral icterus Neck no lymphadenopathy, supple and no JVD General: Negative for tenderness Carotids: Negative for other Lymph Lymphatic: Negative for other Resp normal respiratory effort and clear to auscultation bilaterally Effort and Inspection: Negative for respiratory distress Auscultation: Negative for rales, rhonchi or wheezes Cardio regular rate, regular rhythm, S1 normal heart sound, S2 normal heart sound and no murmurs Rate: Negative for bradycardia or tachycardic Rhythm: Negative for abnormal rhythm GI non-tender, non-distended and no masses Inspection: Negative for abdominal distention Auscultation: normoactive bowel sounds Palpation: soft; Negative for tender, guarding, hernia, mass, pulsatile mass or rebound tenderness present Back/Spine no CVA tenderness General Back: Negative for CVA tenderness Cervical Spine: Negative for cervical spine tenderness Thoracic Spine / Upper Back: Negative for thoracic spinal tenderness Lumbar Spine / Lower Back: Negative for lumbar spinal tenderness Coccyx: Negative for other Extremity full ROM General Extremety ED: Negative for edema or tenderness General Extremity: Negative for edema Neuro CN's II-XII intact bilaterally and moves all extremities Sensorium / Orientation: alert, oriented to person, oriented to place and oriented to time; Negative for orientation impaired, confused, lethargic or stuporous Motor Exam: strength 5/5 throughout Psych mental status grossly normal and thought process normal Appearance: Negative for unkempt Attitude: No agitated Mood & Affect: Negative for depressed, anxious or tearful Skin no wounds General Skin Exam: Negative for jaundice or pallor Lesions: no lesions Rashes: no rashes Trauma: Negative for abrasion or other Nails: Negative for discolored MDM MDM MDM Narrative Medical decision making narrative: 28-year-old female clinically looks well. Currently is 36 weeks . Due date February 15. She is being followed by the [facility]. Had diarrhea since Thursday morning and today nausea and vomiting. Looks mildly dehydrated. I believe this to be a viral syndrome. Screening labs to be obtained. She is having no urinary symptoms. Will check her heart tones. She will be given a liter normal saline. Zofran for nausea and p.o. fluid challenge. Her abdomen is completely benign at this time and nontender. She does not need any imaging currently. Repeat exam at 5:32 PM patient doing well. Was able to hold down p.o. fluids. Currently is about fci through her IV fluids. Once is her and she will be discharged home. We discussed all of her test results. She has a follow-up [facility] appointment this week on Thursday. Prescription for Zofran was sent to her pharmacy. She and her are comfortable being discharged home. History & Record Review Discussion w/independent historian: Patient Additional record(s) reviewed:: Prior inpatient record, Prior outpatient record, Prior ED visit and Prior labs Lab Data Attestation: I reviewed the patient's lab results. Lab results narrative: CBC normal. White count of 10. H&H of 13 and 40. Platelets 217. Chemistry shows sodium 135 gap 8. Normal BUN 13 creatinine 0.6. Liver enzymes normal. Glucose 79. Lipase normal at 46. heart tones 128 per nurse. Labs: Laboratory Results - last 24 hr 01/24/24 16:42 WBC 10.8 RBC 4.41 Hgb 13.2 Hct 40.5 MCV 91.8 MCH 29.9 MCHC 32.6 RDW Std Deviation 43.8 RDW Coeff of Ramses 13.1 Plt Count 217 MPV 9.8 Immature Gran % (Auto) 0.500 Neut % (Auto) 75.6 H Lymph % (Auto) 16.2 L [place] % (Auto) 6.9 Eos % (Auto) 0.5 Baso % (Auto) 0.3 Absolute Neuts (auto) 8.2 H Absolute Lymphs (auto) 1.76 Nucleated RBC % 0 Sodium 135 L Potassium 3.9 Chloride 104 Carbon Dioxide 23.0 Anion Gap 8 BUN 13 Creatinine 0.62 Estim Creat Clear Calc 160.96 Est GFR (MDRD) Af Amer 148 Est GFR (MDRD) Non-Af 123 BUN/Creatinine Ratio 21.1 H Glucose 79 Calcium 9.2 Total Bilirubin 0.40 AST 24 ALT 21 Alkaline Phosphatase 110 Total Protein 7.9 Albumin 3.4 Globulin 4.5 H Albumin/Globulin Ratio 0.8 L Lipase 46 Discharge Plan Triage Chief Complaint: Abd Pain Other Complaint: Nausea/Vomiting/Diarrhea ED Provider: Albert Reina Dx/Rx/DC Orders Clinical Impression: Viral gastroenteritis, Nausea, vomiting and diarrhea, Third trimester Instructions: ED Gastroenteritis, Viral (Adult) Prescriptions: New ondansetron 4 mg tablet,disintegrating 4 mg PO Q4H Qty: 10 0RF Rx Instructions: 1st dose 1-2 hr before radiation No Action zbyqxnil-[id number]-[id number]-FA 1 mg Tablet 1 tab PO DAILY magnesium glycinate 100 mg magnesium capsule 200 mg PO DAILY Primary Care Provider: Care Physician,No Primary Referrals: Karlos Maharaj MD [Med Staff - Active Staff] - 1-2 Days if not improving Care Physician,No Primary [Primary Care Provider] - Activity Restrictions/Additional Instructions: Appears to be secondary to viral illness. Plenty of fluids and rest. Push water, 7-Up, Gatorade. Increase your diet slowly as tolerated. Zofran as needed for nausea. Symptoms should start improving in the next 12 to 48 hours. If not follow-up. Return if feeling worse. Zofran as needed for nausea. Print Language: Congolese Disposition Disposition: Home, Self Care
[2024-01-24] MEDS: Ondansetron 4 MG/2 ML Vial IV (16:43)
[2024-01-24] MEDS: 0.9% Normal Saline (1000mL) 1,000 ML 999 ML IV (16:43)
[2024-01-24 16:55] LABS: Absolute Lymphocyte Count 1.76 X10^3/uL (0.83-4.51); Absolute Neutrophil Count 8.2 X10^3/uL (2.0-7.7); Basophil# 0.03 X10^3/uL; Basophil% 0.3 % (0-1); Eosinophil# 0.05 X10^3/uL; Eosinophils% 0.5 % (0-5); Hematocrit 40.5 % (37-47); Hemoglobin 13.2 g/dL (12.0-15.0); Lymphocyte # 1.76 X10^3/ul (0.83-4.51); Lymphocyte % 16.2 % (19-41); Mean Corp Hgb Conc 32.6 g/dL (32-36); Mean Corpuscular Hgb 29.9 pg (27.0-32.0); Mean Corpuscular Volume 91.8 fL (81-99); Mean Platelet Vol. 9.8 fl (6.2-12.0); Monocyte# 0.75 X10^3/uL; Monocyte% 6.9 % (0-10); NRBC Flagged by Analyzer 0 % (0-5); Neutrophil % 75.6 % (47-70); Platelet Count 217 K/mm3 (150-450); RBC Distribution Width CV 13.1 % (11.6-14.6); RBC Distribution Width SD 43.8 fl (35.1-43.9); Red Blood Count 4.41 M/mm3 (4.2-5.4); White Blood Count 10.8 K/mm3 (4.4-11.0)
[2024-01-24 17:16] LABS: ALB/GLOB Ratio 0.8 RATIO (0.9-2.4); AST(SGOT) 24 U/L (15-37); Alanine Aminotransfer ALT/SGPT 21 U/L (13-56); Albumin, Serum 3.4 g/dL (3.2-5.0); Alkaline Phosphatase 110 U/L (45-117); Anion Gap 8 (5-15); BUN 13 mg/dL (7-18); BUN/Creat Ratio 21.1 RATIO (10-20); Calcium,Total 9.2 mg/dL (8.5-10.1); Chloride 104 mmol/L (98-107); Creatinine, Serum 0.62 mg/dL (0.55-1.02); EST Glomerular Filtration Rate 123 mL/min (>60); Est Glom Filt Rate - Afr Amer 148 mL/min (>60); Estimated Creatinine Clearance 160.96 ml/min; Globulin 4.5 g/dL (2.2-4.2); Glucose 79 mg/dL (74-106); Lipase 46 U/L (13-75); Potassium 3.9 mmol/L (3.5-5.1); Protein, Total 7.9 g/dL (6.4-8.2); Sodium Level 135 mmol/L (136-145)
[2024-01-24 17:45] VITALS: BP 102/61; PULSE 66; RESP 14; TEMP 36.6; O2SAT 96
== END 2024-01-24 18:18 | disposition home or self-care (01) ==
PROVIDERS: Emergency Provider Emergency Medicine; Visit Provider Emergency Medicine
DX: O98.813 Other maternal infectious and parasitic diseases complicating pregnancy, third trimester (principal); Z3A.36 36 weeks gestation of pregnancy; O99.283 Endocrine, nutritional and metabolic diseases complicating pregnancy, third trimester; E86.0 Dehydration; A08.4 Viral intestinal infection, unspecified
CPT/HCPCS: 80053; 83690; 85025; 96361; 96374; 99282; J7030; A4216; J2405

== ENCOUNTER 2024-02-16 18:09 | Inpatient (IN) | payer BC, MEDICAID, SELFPAY ==
[2024-02-16] VITALS (10 sets, daily range): BP systolic 113–140; BP diastolic 59–84; PULSE 85–117; RESP 16; TEMP 36.8; O2SAT 99; BMI 31.1
[2024-02-16 18:51] LABS: Bedside Glucose 125 mg/dL (74-106)
--- NOTE | 2024-02-16 18:56 | PCM.HP.OB ---
HPI - General General Date of Admission: 02/16/24 HPI Narrative GENE WEAVER, is a 29 F who presents at 40 weeks by LMP. Presents with complaint of contractions on and off today. Became increasingly more painful and presented to L&D. States she was checking her cervix at home and was about 5.5cm and decided to come in. Present with Davon Hua and . No vaginal bleeding or leakage of fluid. complicated by migraines, history of C/S with successful TOLAC, GDMA1 and history of genital HSV 2. No active HSV lesions and last outbreak over 2 years ago, suppressive therapy started at 36 weeks. Maternal Data Information KOKO Calculator Estimated Delivery Date Method Current WG Current Estimate 02/16/24 Manual 40w 0d PFSH PFSH Medical History (Updated 02/16/24 @ 19:06 by Yaneth Rubalcava CNM) Vaginal after depression Home Medications ?Medication ?Instructions ?Recorded ?Last Taken ?Type zcfqtwvg-kcb-Ul-FA 1 mg 1 tab PO DAILY 01/16/21 06/11/23 History tablet magnesium glycinate 200 mg PO DAILY 01/24/24 Unknown History ondansetron 4 mg disintegrating 4 mg PO Q4H #10 tabs 01/24/24 Unknown Rx tablet Allergy/AdvReac Type Severity Reaction Status Date / Time adhesive Allergy Rash Verified 01/24/24 16:27 Latex, Natural Rubber Allergy Rash Verified 01/24/24 16:27 metoclopramide (From Reglan) AdvReac Other Verified 01/24/24 16:27 Surgical History (Updated 02/16/24 @ 19:05 by Yaneth Rubalcava CNM) History of gynecologic surgery Previous section Social History Smoking Status: Never smoker History Elective abortions Hx Para 1 Spontaneous abortions Hx # Term Pregnancies Ectopic pregnancies Hx # Pregnancies Multiple births # of living children NST FHR Rate Baby A Baseline: 135 Variability:: Moderate Accelerations:: 15 x 15 Decelerations:: Variable FHR Category:: Category II Uterine Activity:: every 2-3 min, strong ROS Constitutional Constitutional: Reports systems reviewed and no addt'l complaints, except as documented; Denies headache(s) Eyes Eyes: Denies acute decrease in peripheral vision, blurry vision or change in vision ENT HEENT: Reports systems reviewed and no addt'l complaints, except as documented Cardiovascular Cardiovascular: Denies chest pain or dizziness Respiratory/Chest Respiratory/Chest: Denies cough, dyspnea, dyspnea on exertion, shortness of breath at rest or shortness of breath with exertion Gastrointestinal Gastrointestinal: Denies abdominal pain, diarrhea, nausea or vomiting Genitourinary Genitourinary: Denies abdominal discomfort Musculoskeletal Musculoskeletal: Denies limited range of motion Integumentary Integumentary: Reports systems reviewed and no addt'l complaints, except as documented Neurologic Neurologic: Reports systems reviewed and no addt'l complaints, except as documented Psychiatric Psychiatric: Reports systems reviewed and no addt'l complaints, except as documented Endocrine Endocrinology: Reports systems reviewed and no addt'l complaints, except as documented Hematologic/Lymphatic Hematologic/Lymphatic: Reports systems reviewed and no addt'l complaints, except as documented Allergic/Immunologic Allergic/Immunologic: Reports systems reviewed and no addt'l complaints, except as documented Vital Signs Vital Signs Vital Signs: 02/16/24 18:30 02/16/24 18:30 02/16/24 18:30 Temperature Temperature Source Temporal Pulse Rate 93 Respiratory Rate Blood Pressure 121/84 H BP Systolic 121 BP Diastolic 84 02/16/24 18:30 02/16/24 18:30 Temperature 98.3 F Temperature Source Pulse Rate Respiratory Rate 16 Blood Pressure BP Systolic BP Diastolic Physical Exam Const alert and oriented x3 General Appearance: cooperative Orientation / Consciousness: awake, oriented to person, oriented to place and oriented to time Exam Limitations: no limitations HEENT normocephalic Head and Scalp: normal to inspection, normocephalic and atraumatic Face and Sinus: normal facial exam Eyes General Eye: normal appearance of both eyes Neck full ROM Chest Chest: symmetrical chest wall rise Resp normal respiratory effort and normal air movement Auscultation: clear to auscultation bilaterally Cardio regular rate, regular rhythm, S1 normal heart sound, S2 normal heart sound, no murmurs, no rub, no gallops and no clicks GI normal to inspection, nondistended, normoactive bowel sounds and non-tender appearance of the vagina normal Bladder / Kidney Exam: no CVA tenderness Manual OB Exam: estimated gestational size appropriate, presentation cephalic, dilated 6cm, effaced 70, station -2 and other Exam per nursing, SROM clear fluid Back/Spine normal ROM Extremity normal to inspection and full ROM Skin no rashes or lesions noted Neuro oriented x3, CN's II-XII intact bilaterally and moves all extremities Sensorium / Orientation: awake, alert and oriented to person Motor Exam: clonus absent Deep Tendon Reflexes: Rt Patellar (L4): 2+ and Lt Patellar (L4): 2+ Labs Labs Labs: Blood Type A POSITIVE Antibody Screen NEGATIVE Hct 37.4 % (37-47) Hgb 12.4 g/dL (12.0-15.0) Syphilis Total Ab Pending Rhogam given: No GBS negative HIV negative HepC negative HBsAG negative 1hr GCT elevated, 3hr GTT abnormal RPR negative A positive, antibody screen negative GC/CT negative Assessment & Plan (1) 40 weeks gestation of : (2) Encounter for trial of labor: (3) Previous delivery affecting : (4) Vaginal after : (5) Active labor at term: (6) History of depression: (7) History of herpes simplex type 2 infection: COMMENT: Last outbreak 2 years ago Prophylaxis since 36 weeks (8) Previous section: COMMENT: 2016 for arrest of dilation. Subsequent in (9) GDM, class A1: PLAN: Plan 1) Admit to labor and delivery 2) Routine labs 3) GDM protocol 4) Continuous EFM for TOLAC 5) Denies pain management 6) TOLAC, consent signed on 12/16/[address]James navas physician and notified about patient admission, above assessment and plan. Immediately available if needed. 7) Category 2 FHT, positional changes 8) plan reviewed, requesting minimal intervention. Conformal Pad Former and labor support at this time. Declines further exams.
[2024-02-16 19:00] LABS: Absolute Lymphocyte Count 2.34 X10^3/uL (0.83-4.51); Absolute Neutrophil Count 11.9 X10^3/uL (2.0-7.7); Basophil# 0.05 X10^3/uL; Basophil% 0.3 % (0-1); Eosinophil# 0.06 X10^3/uL; Eosinophils% 0.4 % (0-5); Hematocrit 37.4 % (37-47); Hemoglobin 12.4 g/dL (12.0-15.0); Lymphocyte # 2.34 X10^3/ul (0.83-4.51); Lymphocyte % 15.4 % (19-41); Mean Corp Hgb Conc 33.2 g/dL (32-36); Mean Corpuscular Hgb 29.5 pg (27.0-32.0); Mean Corpuscular Volume 88.8 fL (81-99); Mean Platelet Vol. 9.8 fl (6.2-12.0); Monocyte# 0.84 X10^3/uL; Monocyte% 5.5 % (0-10); NRBC Flagged by Analyzer 0 % (0-5); Neutrophil # 11.85 X10^3/uL (2.7-7.7); Platelet Count 216 K/mm3 (150-450); RBC Distribution Width CV 13.1 % (11.6-14.6); RBC Distribution Width SD 42.5 fl (35.1-43.9); Red Blood Count 4.21 M/mm3 (4.2-5.4); White Blood Count 15.2 K/mm3 (4.4-11.0)
[2024-02-16 19:38] LABS: Syphilis Antibodies Non-reactive
--- NOTE | 2024-02-16 20:11 | EX.PCM.OBRPT ---
Assessment & Plan (1) Vaginal after : (2) GDM, class A1: (3) History of herpes simplex type 2 infection: COMMENT: Last outbreak 2 years ago Prophylaxis since 36 weeks (4) History of depression: (5) Previous section: COMMENT: 2016 for arrest of dilation. Subsequent in Maternal Data Information KOKO Calculator Estimated Delivery Date Method Current WG Current Estimate 02/16/24 Manual 40w 0d Vaginal Delivery Maternal Presentation Maternal Presentation: Active Labor and Spontaneous Rupture of Membranes Operative Information Date of Procedure: 02/16/24 Pre-Operative Diagnosis: Active Labor Post-Operative Diagnosis: Surgery / Procedure Performed: Type of Anesthesia: None Estimated Blood Loss: 300ml Time of Delivery: 19:52 Findings Description of Procedure: Difficulty monitoring baby due to maternal positions and informed refusal to reapply monitors at times. Progressed to complete dilation with urge to push, declined any vaginal exams after admission exam.Sitting upright in bed in squatting position with right leg up. assisting delivery. of viable female over intact perineum. APGARS 8,8 respectively. head delivered with body immediately forthcoming. Placed in maternal arms strong cry. Mouth and nares wiped and suctioned for secretions. Declines pitocin or active management of 3rd stage. Placenta delivered with gravity and maternal effort intact via robins. Declined inspection of placenta at bedside. Informed refusal of cord clamping, would like to keep attached at this time. Perineum inspected externally and no laceration, declines any internal inspection and informed refusal. Fundus firm and hemostasis achieved. EBL 300ml. Mom and baby stable, planning to breastfeed. Family bonding well. notified of delivery. Presentation: Vertex Amniotic Membrane Rupture Type: Spontaneous Amniotic Fluid Description: Clear Placental Delivery Description: Spontaneous Placenta Disposition: [facility] Cord Vessel Description: 3 Vessels Cord Entanglement: None Infant A Gender: Female (1 minute): 8 (5 minute): 8 Delayed Cord Clamping: Yes Post Vaginal Delivery Medications Given After Delivery: - (Informed refusal of active management) Episiotomy Description: None Laceration: None Complication Complications: None
[2024-02-16 21:29] LABS: Bedside Glucose 136 mg/dL (74-106)
[2024-02-17] VITALS (16 sets, daily range): BP systolic 105–121; BP diastolic 57–74; PULSE 72–136; RESP 14–16; TEMP 36.3–36.8; O2SAT 98–100
[2024-02-17 05:07] LABS: Bedside Glucose 116 mg/dL (74-106)
--- NOTE | 2024-02-17 08:11 | PN.OBGYN_ITS ---
Subjective Subjective pain well controlled, average lochia Objective Data Objective Data Vital Signs: Vital Signs Temp Pulse Resp BP Pulse Ox O2 Del Method 97.8 F 88 16 106/60 98 Room Air 02/17/24 04:07 02/17/24 04:07 02/17/24 04:07 02/17/24 04:07 02/17/24 04:07 02/17/24 04:07 Oxygen Delivery Method Room Air Weight: 93 kg Body Mass Index (BMI) 31.1 Intake & Output: Intake and Output for Last 24 Hours 02/15/24 02/16/24 02/17/24 23:59 23:59 23:59 Output Total 300 / 300 Balance -300 / -300 Lab / Micro Data 02/16/24 18:45 Labs: Laboratory Results - last 24 hr 02/16/24 18:30: POC Glucose 125 H 02/16/24 18:45: WBC 15.2 H, RBC 4.21, Hgb 12.4, Hct 37.4, MCV 88.8, MCH 29.5, MCHC 33.2, RDW Std Deviation 42.5, RDW Coeff of Ramses 13.1, Plt Count 216, MPV 9.8, Immature Gran % (Auto) 0.400, Neut % (Auto) 78.0 H, Lymph % (Auto) 15.4 L, [place] % (Auto) 5.5, Eos % (Auto) 0.4, Baso % (Auto) 0.3, Absolute Neuts (auto) 11.9 H, Absolute Lymphs (auto) 2.34, Nucleated RBC % 0, Syphilis Total Ab Non- reactive, Blood Type A POSITIVE, Antibody Screen NEGATIVE 02/16/24 21:10: POC Glucose 136 H 02/17/24 04:49: POC Glucose 116 H Physical Exam Const alert and no apparent distress Narrative: Fundus firm, below umbilicus. Assessment & Plan (1) Vaginal after : PLAN: PPD#1 s/p , doing well considering d/c home tonight
--- NOTE | 2024-02-17 08:21 | PCM.DC.SUM ---
Providers Date of Admission: 02/16/24 Primary Care Physician: Clarita Primary Care Phys Reason For Visit: LABOR AND DELIVERY Diagnosis Discharge Diagnosis (1) Vaginal after : Status: Acute Code(s): O34.219 - Maternal care for unspecified type scar from previous delivery Plan: PPD#1 s/p , doing well considering d/c home tonight Medications at Discharge Home Medications ewqkcxsr-ahy-Sl-FA 1 mg tablet 1 tab PO DAILY 01/16/21 magnesium glycinate 200 mg PO DAILY 01/24/24 ondansetron 4 mg disintegrating tablet 4 mg PO Q4H #10 tabs 01/24/24 Hospital Course Summary of Care Provided Minutes Spent on Discharge: 14 Hospital Course: Patient admitted for trial of labor. History of 1 c/s and 1 successful previously. Admitted at 40 weeks in spont. labor. on 02/16/24 without complications. By PPD #1 doing well. Routine care. doing well. Desires d/c home today. Weight / BMI Weight Weight: 93 kg Body Mass Index (BMI) 31.1 ABG / Lab / Microbiology Data 02/16/24 18:45 Laboratory: Laboratory Results - last 24 hr 02/16/24 18:30: POC Glucose 125 H 02/16/24 18:45: WBC 15.2 H, RBC 4.21, Hgb 12.4, Hct 37.4, MCV 88.8, MCH 29.5, MCHC 33.2, RDW Std Deviation 42.5, RDW Coeff of Ramses 13.1, Plt Count 216, MPV 9.8, Immature Gran % (Auto) 0.400, Neut % (Auto) 78.0 H, Lymph % (Auto) 15.4 L, [place] % (Auto) 5.5, Eos % (Auto) 0.4, Baso % (Auto) 0.3, Absolute Neuts (auto) 11.9 H, Absolute Lymphs (auto) 2.34, Nucleated RBC % 0, Syphilis Total Ab Non-reactive, Blood Type A POSITIVE, Antibody Screen NEGATIVE 02/16/24 21:10: POC Glucose 136 H 02/17/24 04:49: POC Glucose 116 H Meaningful Use Info Meaningful Use Meaningful Use Diagnoses (Choose all that apply): None applicable Ischemic Stroke Statin Dosing Therapy Reference: STATIN DOSE THERAPY REFERENCE: * Patients > 75 years receive moderate or high dose statin therapy. * Patients 75 years or YOUNGER should receive HIGH intensity statin dose unless contraindicated. You will be required to document reason for non-treatment if statin daily dose does not meet guidelines. HIGH DOSE STATIN THERAPY DAILY Atorvastatin > than or = to 40 mg Rosuvastatin > than or = to 20 mg Amlodipine + Atorvastatin > than or = to 2.5/40 mg Ezetimibe + Simvastatin 10/80 mg Simvastatin 80mg Discharge Plan Admission Admit Date/Time: 02/16/24 18:09 Primary Reason for Your Visit: vaginal delivery Attending Provider: Yaneth Rubalcava Primary Care Provider: Care Physician,Clarita Primary Discharge Orders/Prescriptions Prescriptions: No Action dpuvtenr-pfn-Io-FA 1 mg Tablet 1 tab PO DAILY magnesium glycinate 100 mg magnesium capsule 200 mg PO DAILY ondansetron 4 mg tablet,disintegrating 4 mg PO Q4H Qty: 10 0RF Rx Instructions: 1st dose 1-2 hr before radiation Referrals / Follow Up: Care Physician,No Primary [Primary Care Provider] - Disposition Disposition (needs filled in before D/C Order can be placed): Home, Self Care
[2024-02-17 10:06] LABS: Absolute Lymphocyte Count 2.15 X10^3/uL (0.83-4.51); Absolute Neutrophil Count 9.5 X10^3/uL (2.0-7.7); Basophil# 0.02 X10^3/uL; Basophil% 0.2 % (0-1); Eosinophil# 0.08 X10^3/uL; Eosinophils% 0.6 % (0-5); Hematocrit 29.8 % (37-47); Hemoglobin 9.7 g/dL (12.0-15.0); Lymphocyte # 2.15 X10^3/ul (0.83-4.51); Mean Corp Hgb Conc 32.6 g/dL (32-36); Mean Corpuscular Hgb 30.3 pg (27.0-32.0); Mean Corpuscular Volume 93.1 fL (81-99); Mean Platelet Vol. 11.3 fl (6.2-12.0); Monocyte# 0.83 X10^3/uL; Monocyte% 6.5 % (0-10); NRBC Flagged by Analyzer 0 % (0-5); Neutrophil # 9.54 X10^3/uL (2.7-7.7); Neutrophil % 75.2 % (47-70); Platelet Count 189 K/mm3 (150-450); RBC Distribution Width CV 13.4 % (11.6-14.6); RBC Distribution Width SD 45.2 fl (35.1-43.9); White Blood Count 12.7 K/mm3 (4.4-11.0)
[2024-02-17] MEDS: Lactated Ringers 1,000 ML 999 ML IV (11:12)
[2024-02-17] MEDS: Acetaminophen 500 MG Tablet 1000 MG PO (18:40)
== END 2024-02-17 20:45 | disposition home or self-care (01) | DRG 806 ==
PROVIDERS: Obstetrics & Gynecology; Admitting Provider Advanced Practice Midwife; Visit Provider Advanced Practice Midwife
DX: O34.219 Maternal care for unspecified type scar from previous cesarean delivery (principal); Z37.0 Single live birth; O98.32 Other infections with a predominantly sexual mode of transmission complicating childbirth; O24.420 Gestational diabetes mellitus in childbirth, diet controlled; A60.00 Herpesviral infection of urogenital system, unspecified; Z3A.40 40 weeks gestation of pregnancy
CPT/HCPCS: 59025; 59050; 82962; 85025; 86780; 86850; 86900; 86901; 99221; J7120; G0378

== ENCOUNTER 2024-02-24 16:23 | Emergency (ER) | payer BC, MEDICAID, SELFPAY ==
[2024-02-24 16:24] VITALS: BP 105/58; PULSE 87; RESP 18; TEMP 36.7; O2SAT 97; BMI 28.5
--- NOTE | 2024-02-24 17:09 | EDS_ITS ---
HPI History of Present Illness Chief Complaint: Shortness of Breath PFSH PFSH Medical History Gestational diabetes Vaginal after depression Home Medications ?Medication ?Instructions ?Recorded ?Last Taken ?Type pfmcbjys-qvl-Oh-FA 1 mg 1 tab PO DAILY 01/16/21 02/15/24 22:00 History tablet 1 TAB magnesium glycinate 200 mg PO DAILY 01/24/24 02/16/24 08:00 History 200 mg ondansetron 4 mg disintegrating 4 mg PO Q4H #10 tabs 01/24/24 Unknown Rx tablet Allergy/AdvReac Type Severity Reaction Status Date / Time adhesive Allergy Rash Verified 02/24/24 19:04 Latex, Natural Rubber Allergy Rash Verified 02/24/24 19:04 metoclopramide (From Reglan) AdvReac Other Verified 02/24/24 19:04 Surgical History History of gynecologic surgery Previous section Social History Smoking Status: Former smoker EXAM Physical Exam Const Vital Signs: 02/24/24 16:24 02/24/24 16:58 02/24/24 18:24 Temperature 98.1 F 97.8 F Temperature Source Temporal Temporal Pulse Rate 87 73 Respiratory Rate 18 20 H Respiratory Effort Short of Breath Respiratory Depth Normal Respiratory Pattern Normal Blood Pressure 105/58 L 105/64 Blood Pressure Mean 73 77 Pulse Ox 97 98 Oxygen Delivery Method Room Air Room Air Room Air MDM MDM MDM Narrative Medical decision making narrative: HISTORY OF PRESENT ILLNESS: 29year old female presents with headache. Significant 7 days ago after vaginal delivery on 02/15. Patient denies sudden onset or thunderclap headache, denies maximal intensity within 1 minute, vomiting, neck pain or stiffness, changes in vision, fever, history malignancy, syncope, seizures. Patient also endorses shortness of breath. She denies any bleeding diathesis. States she is no longer in vaginal bleeding after delivery. States she is having leg swelling. Denies calf tenderness or other VTE risk factors. The patient denies recent surgery in the last 4 weeks or immobilization in the last 3 days, denies previous diagnosis of DVT or PE, hemoptysis, unilateral leg swelling or malignancy with treatment the last 6 months or palliative. No estrogen use noted. Denies chest pain. Denies feeling pressure history of early cardiac or blood clots. Denies vomiting or diarrhea. REVIEW OF SYSTEMS: All other systems reviewed and are negative except as noted in the history of present illness. At least 10 review of systems reviewed and are negative except as noted in history of present illness. PHYSICAL EXAM: Nursing triage notes reviewed, Vital signs reviewed Constitutional: please see mdm HENT: MMM Eyes: Pupils equal round and reactive to light, Extraocular muscles intact Neck: No stridor, no JVD, full neck ROM Lungs: Clear to auscultation, No wheezing or rales. No increased work of breathing, no conversational dyspnea, no accessory muscle use, no nasal flaring. No respiratory distress noted Heart: Regular rate and rhythm, No murmurs, No rubs and No gallops, 2+ distal pulses (radial, femoral, posterior tibial) in all extremities Abdomen: Soft, there is no tenderness, rigidity, rebound or guarding, no obvious peritoneal signs, no palpable pulsatile abdominal masses, no auscultated abdominal bruit : No CVAT Extremities: No edema Neuro: Alert and oriented x3, neuro exam at baseline, cranial nerves II through XII are intact. No pain with extraocular muscle movement. There is negative test of skew. Normal speech. 5 of 5 strength in upper and lower extremities in flexion extension. Intact sensation to light touch in upper and lower extremity dermatomes. No truncal or extremity ataxia. No dysdiadochokinesia. Normal gait. 2+ reflexes. No meningeal signs. Negative Babinski. NIH of 0 Skin: No rash or lesions noted MEDICAL DECISION MAKING: Chief Complaint: Headache, shortness of breath External records reviewed: none Factors affecting care: none Social determinants of health: none History obtained from others: none Consults: none [facility] Narrative: Patient was hemodynamically stable, afebrile, appearing. Exam without focal neurologic deficits. No focal cardiopulmonary normalities noted. I considered the following differential diagnosis: In terms of headache I considered the following differential: Subarachnoid hemorrhage, epidural hematoma, ICH, meningitis, carotid artery dissection, primary headache (primary headache, migraine, tension headache, cluster headache). Internal shortness of breath active on differential: CHF, anemia, electro disturbance, ACS, arrhythmia, PE, pneumonia, viral illness I considered pulmonary illness as a potential etiology given recent patient had a low risk Wells score, was not tachycardic, As such have a low suspicion for PE at this time. In terms of patient's lab and imaging workup here showed no signs of CHF, anemia, ACS, arrhythmia, electrolyte disturbance, pneumothorax, pneumonia. Her report of dyspnea is unclear at this time. Is likely secondary changes during . ALL IMAGES (IF OBTAINED) HAVE BEEN PERSONALLY REVIEWED AND INTERPRETED BY MYSELF. EKG with normal sinus rhythm, normal axis, no intervals, no STEMI, no stigmata of VTE, WPW, Brugada syndrome or ARVD I have personally reviewed the patient's chest x-ray. Chest x-ray is unremarkable for pulmonary edema, pneumothorax, pneumonia or focal cardiopulmonary abnormality. CBC shows a leukocytosis to suggest systemic information, noted mild anemia, no thrombocytopenia CMP without evidence of acute kidney injury, significant electrolyte abnormality, anion gap, no evidence hepatobiliary pathology. High-sensitivity troponin is negative, no evidence of myocardial ischemia BNP within the limits suggestive of no significant volume overload or heart failure CT scan of the brain is negative. In terms of the patient's headache she patient looks great and is in no significant objective discomfort currently. The patient's headache is non- specific. Exam is unremarkable. The patient is in no distress and the patient?s neurological exam is non-focal, neck is supple and without meningismus. The headache is not consistent with meningitis or infection, nor is it consistent with intracranial bleed (SAH etc.), carotid dissection, nor mass by history and examination. Medication and outpatient follow-up was instructed. The patient was instructed to return as needed or if symptoms changed or worsened, fever developed or inability to tolerate fluids. The patient agreed with plan. The patient and/or family, caregivers express understanding. The patient and/or family, caregivers agrees with the plan. Total critical care time today provided was at least 0 minutes. This excludes separately billable procedures. Critical care time (if documented) is secondary to the patient having high probability of clinically significant/life threatening deterioration in the patient's condition which required my urgent intervention. Shared decision making: I will have a discussion with the patient and or visitors regarding risk/benefits of further testing or admission. They will be made aware of of the risk/benefits inherent in this decision they will be given the opportunity to voice understanding. Impression: 1. Acute Headache 2. Shortness of breath 3. Disposition: Discharge home This note was generated with [employer] dictation software. It may contain incorrect words, spelling, and punctuation that were not noted in review of the chart prior to signing. Lab Data Labs: Laboratory Results - last 24 hr 02/24/24 17:45 WBC 8.8 RBC 3.62 L Hgb 10.8 L Hct 33.0 L MCV 91.2 MCH 29.8 MCHC 32.7 RDW Std Deviation 43.0 RDW Coeff of Ramses 13.2 Plt Count 401 MPV 8.8 Immature Gran % (Auto) 0.300 Neut % (Auto) 63.0 Lymph % (Auto) 27.9 [place] % (Auto) 6.5 Eos % (Auto) 1.7 Baso % (Auto) 0.6 Absolute Neuts (auto) 5.6 Absolute Lymphs (auto) 2.46 Nucleated RBC % 0 Sodium 139 Potassium 4.2 Chloride 105 Carbon Dioxide 24.0 Anion Gap 10 BUN 18 Creatinine 0.85 Estim Creat Clear Calc 112.50 Est GFR (MDRD) Af Amer 102 Est GFR (MDRD) Non-Af 84 BUN/Creatinine Ratio 21.1 H Glucose 77 Calcium 9.2 Total Bilirubin 0.20 AST 22 ALT 49 Alkaline Phosphatase 74 Troponin I High Sens 3 B-Natriuretic Peptide 18.9 Total Protein 7.2 Albumin 3.3 Globulin 3.9 Albumin/Globulin Ratio 0.8 L Radiography Diagnostic Testing: Clinical Impression(s) from Imaging Studies Brain CT 02/24/24 17:42 IMPRESSION: Normal unenhanced CT scan of the brain. Electronically Signed: Phan Mcmanus DO at 18:17 EDT , Chest X-Ray 02/24/24 18:00 IMPRESSION: No radiographic evidence of acute cardiopulmonary disease. Electronically Signed: Phan Mcmanus DO at 18:34 EDT , Discharge Plan Triage Chief Complaint: Shortness of Breath Other Complaint: Headache ED Provider: Francisco Crews Dx/Rx/DC Orders Prescriptions: No Action dlgxreax-hxo-Tz-FA 1 mg Tablet 1 tab PO DAILY magnesium glycinate 100 mg magnesium capsule 200 mg PO DAILY ondansetron 4 mg tablet,disintegrating 4 mg PO Q4H Qty: 10 0RF Rx Instructions: 1st dose 1-2 hr before radiation Primary Care Provider: Care Physician,No Primary Referrals: Care Physician,No Primary [Primary Care Provider] - Print Language: Greenlandic
--- NOTE | 2024-02-24 17:42 | CT_ITS ---
STUDY: CT BRAIN WITHOUT CONTRAST REASON FOR EXAM: Female, 29 years old. Headache RADIATION DOSAGE (If Supplied By Facility): CTDIvol = ( 47.06 ) mGy, DLP = ( 837.39 ) mGycm TECHNIQUE: Transaxial CT imaging of the brain was performed without administration of intravenous contrast material. Individualized dose optimization techniques were used for this CT. COMPARISON: No relevant priors. FINDINGS: Normal soft tissue structures. Normal calvarium. Normal size ventricles and extra-axial spaces for the patient''s age. Normal white matter tracts of the cerebral hemispheres. Normal basal ganglia and thalami. Normal brainstem. Normal cerebellum. There is no intracranial hemorrhage. There are no findings of an acute ischemic infarction. Normal visualized paranasal sinuses. CT/Brain/Head without Contrast IMPRESSION: Normal unenhanced CT scan of the brain. Electronically Signed: Phan Mcmanus DO at 18:17 EDT ,
--- NOTE | 2024-02-24 17:42 | EKG12_ITS ---
Test Reason : SOB Blood Pressure : / mmHG Vent. Rate : 063 BPM Atrial Rate : 063 BPM P-R Int : 160 ms QRS Dur : 086 ms QT Int : 390 ms P-R-T Axes : 051 058 039 degrees QTc Int : 399 ms Normal sinus rhythm with sinus arrhythmia Septal infarct (cited on or before 16-MAR-2014) Abnormal ECG Confirmed by JOHN ORNELAS, CHARANJIT ([id number]), purchase request editor GEORGE TOWNSEND ([id number]) on 02/25/2024 12:59:50 PM Referred By: Confirmed By:CHARANJIT LOPEZ MD
[2024-02-24] MEDS: Acetaminophen 325 MG Tablet 650 MG PO (17:50)
[2024-02-24 17:55] LABS: Absolute Lymphocyte Count 2.46 X10^3/uL (0.83-4.51); Absolute Neutrophil Count 5.6 X10^3/uL (2.0-7.7); Basophil# 0.05 X10^3/uL; Basophil% 0.6 % (0-1); Eosinophil# 0.15 X10^3/uL; Eosinophils% 1.7 % (0-5); Hemoglobin 10.8 g/dL (12.0-15.0); Lymphocyte # 2.46 X10^3/ul (0.83-4.51); Lymphocyte % 27.9 % (19-41); Mean Corp Hgb Conc 32.7 g/dL (32-36); Mean Corpuscular Hgb 29.8 pg (27.0-32.0); Mean Corpuscular Volume 91.2 fL (81-99); Mean Platelet Vol. 8.8 fl (6.2-12.0); Monocyte# 0.57 X10^3/uL; Monocyte% 6.5 % (0-10); NRBC Flagged by Analyzer 0 % (0-5); Neutrophil # 5.56 X10^3/uL (2.7-7.7); Platelet Count 401 K/mm3 (150-450); RBC Distribution Width CV 13.2 % (11.6-14.6); Red Blood Count 3.62 M/mm3 (4.2-5.4); White Blood Count 8.8 K/mm3 (4.4-11.0)
--- NOTE | 2024-02-24 18:00 | RAD_ITS ---
INDICATION: Shortness of breath EXAMINATION/TECHNIQUE: X-RAY - XR Chest 1 View COMPARISON: August 01, 2023 FINDINGS: LINES/DEVICES: None. LUNGS: No consolidation, edema or effusion. No pneumothorax. MEDIASTINUM AND CARDIOVASCULAR STRUCTURES: Cardiac silhouette not enlarged. Central airways and mediastinal contour are unremarkable. BONES AND SOFT TISSUES: Unremarkable. RAD/Chest 1 View (Portable) IMPRESSION: No radiographic evidence of acute cardiopulmonary disease. Electronically Signed: Phan Mcmanus DO at 18:34 EDT ,
[2024-02-24 18:13] LABS: BNP,B-Type NATRIURETIC PEPTIDE 18.9 pg/mL (0-100)
[2024-02-24 18:15] LABS: ALB/GLOB Ratio 0.8 RATIO (0.9-2.4); AST(SGOT) 22 U/L (15-37); Alanine Aminotransfer ALT/SGPT 49 U/L (13-56); Albumin, Serum 3.3 g/dL (3.2-5.0); Alkaline Phosphatase 74 U/L (45-117); Anion Gap 10 (5-15); BUN 18 mg/dL (7-18); BUN/Creat Ratio 21.1 RATIO (10-20); Calcium,Total 9.2 mg/dL (8.5-10.1); Chloride 105 mmol/L (98-107); Creatinine, Serum 0.85 mg/dL (0.55-1.02); EST Glomerular Filtration Rate 84 mL/min (>60); Est Glom Filt Rate - Afr Amer 102 mL/min (>60); Globulin 3.9 g/dL (2.2-4.2); Glucose 77 mg/dL (74-106); Potassium 4.2 mmol/L (3.5-5.1); Protein, Total 7.2 g/dL (6.4-8.2); Sodium Level 139 mmol/L (136-145); Troponin-I HS 3 pg/mL (3.0-54.0)
[2024-02-24 18:24] VITALS: BP 105/64; PULSE 73; RESP 20; TEMP 36.6; O2SAT 98
[2024-02-24 20:19] VITALS: BP 111/77; PULSE 65; RESP 22; TEMP 36.6; O2SAT 97
== END 2024-02-24 20:23 | disposition home or self-care (01) ==
PROVIDERS: Emergency Provider Emergency Medicine; Visit Provider Emergency Medicine
DX: O99.893 Other specified diseases and conditions complicating puerperium (principal); Z87.891 Personal history of nicotine dependence; R51.9 Headache, unspecified; R06.02 Shortness of breath
CPT/HCPCS: 70450; 71045; 80053; 83880; 84484; 85025; 93005; 99285; A4216

== ENCOUNTER 2024-05-06 14:07 | Emergency (ER) | payer BC, MEDICAID, SELFPAY ==
[2024-05-06] VITALS (22 sets, daily range): BP systolic 80–154; BP diastolic 41–133; PULSE 53–113; RESP 12–25; TEMP 36.6–37.4; O2SAT 95–100; BMI 28.6
--- NOTE | 2024-05-06 15:26 | EKG12_ITS ---
Test Reason : SOB Blood Pressure : / mmHG Vent. Rate : 071 BPM Atrial Rate : 071 BPM P-R Int : 162 ms QRS Dur : 080 ms QT Int : 428 ms P-R-T Axes : 072 062 055 degrees QTc Int : 465 ms Normal sinus rhythm with sinus arrhythmia Normal ECG Confirmed by JOHN ORNELAS, CHARANJIT ([id number]), editor producer SARITA BOYLE ([id number]) on 05/10/2024 2:07:31 PM Referred By: Confirmed By:CHARANJIT LOPEZ MD
--- NOTE | 2024-05-06 15:26 | EX.ED.DYSGE1 ---
HPI History of Present Illness Chief Complaint: Syncope [facility] Medical History GDM, class A1 History of herpes simplex type 2 infection History of depression Gestational diabetes Vaginal after depression Home Medications ?Medication ?Instructions ?Recorded ?Last Taken ?Type mxxrxbno-mvy-Dp-FA 1 mg 1 tab PO DAILY 01/16/21 02/15/24 22:00 History tablet 1 TAB magnesium glycinate 200 mg PO DAILY 01/24/24 02/16/24 08:00 History 200 mg ondansetron 4 mg disintegrating 4 mg PO Q4H #10 tabs 01/24/24 Unknown Rx tablet ondansetron 4 mg disintegrating 4 mg PO Q8H PRN PRN Nausea #10 tabs 05/06/24 Unknown Rx tablet Allergy/AdvReac Type Severity Reaction Status Date / Time adhesive Allergy Rash Verified 05/06/24 14:11 Latex, Natural Rubber Allergy Rash Verified 05/06/24 14:11 metoclopramide (From Reglan) AdvReac Other Verified 05/06/24 14:11 Surgical History History of gynecologic surgery Previous section Social History Smoking Status: Former smoker EXAM Physical Exam Const Vital Signs: 05/06/24 14:08 05/06/24 15:24 05/06/24 15:29 Temperature 98 F Temperature Source Temporal Pulse Rate 91 68 Respiratory Rate 16 22 H Respiratory Effort Respiratory Pattern Blood Pressure 111/64 154/133 H Blood Pressure Mean 79 140 Pulse Ox 100 95 Oxygen Delivery Method Room Air Room Air Room Air 05/06/24 15:30 05/06/24 15:32 05/06/24 15:35 Temperature Temperature Source Pulse Rate 78 Respiratory Rate 19 H Respiratory Effort Normal Non-Labored Respiratory Pattern Normal Blood Pressure 90/61 Blood Pressure Mean 70 Pulse Ox Oxygen Delivery Method 05/06/24 15:45 05/06/24 16:00 05/06/24 16:15 Temperature Temperature Source Pulse Rate 65 62 66 Respiratory Rate 25 H 24 H 21 H Respiratory Effort Respiratory Pattern Blood Pressure 98/64 121/49 H 102/51 L Blood Pressure Mean 76 72 66 Pulse Ox 100 Oxygen Delivery Method 05/06/24 16:30 05/06/24 16:45 05/06/24 17:04 Temperature Temperature Source Pulse Rate 64 53 L 53 L Respiratory Rate 17 15 16 Respiratory Effort Respiratory Pattern Blood Pressure 106/77 108/41 L 80/59 L Blood Pressure Mean 86 62 66 Pulse Ox 99 Oxygen Delivery Method 05/06/24 17:06 05/06/24 17:15 05/06/24 17:30 Temperature Temperature Source Pulse Rate 55 L 60 56 L Respiratory Rate 18 15 17 Respiratory Effort Respiratory Pattern Blood Pressure 92/50 L 97/44 L 110/67 Blood Pressure Mean 63 58 80 Pulse Ox 100 100 100 Oxygen Delivery Method 05/06/24 17:52 05/06/24 18:00 05/06/24 18:15 Temperature Temperature Source Pulse Rate 75 67 58 L Respiratory Rate 17 21 H 12 Respiratory Effort Respiratory Pattern Blood Pressure Blood Pressure Mean Pulse Ox 100 100 99 Oxygen Delivery Method 05/06/24 18:30 05/06/24 18:45 05/06/24 18:59 Temperature 99.3 F H Temperature Source Pulse Rate 57 L 56 L 100 Respiratory Rate 16 15 19 H Respiratory Effort Respiratory Pattern Blood Pressure 102/57 L 125/78 H Blood Pressure Mean 70 93 Pulse Ox 99 96 97 Oxygen Delivery Method 05/06/24 19:00 05/06/24 19:28 Temperature Temperature Source Pulse Rate 113 H 56 L Respiratory Rate 25 H 18 Respiratory Effort Respiratory Pattern Blood Pressure Blood Pressure Mean Pulse Ox 97 Oxygen Delivery Method Room Air MDM MDM MDM Narrative Medical decision making narrative: HISTORY OF PRESENT ILLNESS: 29-year-old female presents with concern that she is going to pass out. She notes she is approximate 10 weeks . She further states she has multiple complaints. She states primary approximate 6 hours ago she felt like she was going to pass out. She then notes that she began to have a panic attack. She then notes she developed headache nausea vomiting. She denies recent illnesses. She notes some constipation. She notes of increased urination. She denies chest pain. She does note it is feels like it is difficult to breathe. The patient denies recent surgery in the last 4 weeks or immobilization in the last 3 days, denies previous diagnosis of DVT or PE, hemoptysis, unilateral leg swelling or malignancy with treatment the last 6 months or palliative. No estrogen use noted. She denies any bleeding diathesis. She notes multiple episodes of nonbloody nonbilious vomitus. D reports history of . Denies any other recent surgery. Notes she gave vaginally 10 weeks ago. denies Suicidal ideation, homicidal ideation, auditory or visual hallucinations REVIEW OF SYSTEMS: Pertinent positives: Lightheaded dizzy, nausea, vomiting, urinary frequency, constipation Pertinent negatives: Fever, chest pain PHYSICAL EXAM: Nursing triage notes reviewed, Vital signs reviewed Constitutional: please see mdm HENT: MMM Eyes: Pupils equal round and reactive to light, Extraocular muscles intact Neck: No stridor, no JVD, full neck ROM Lungs: Clear to auscultation, No wheezing or rales. No increased work of breathing, no conversational dyspnea, no accessory muscle use, no nasal flaring. No respiratory distress noted Heart: Regular rate and rhythm, No murmurs, No rubs and No gallops, 2+ distal pulses (radial, femoral, posterior tibial) in all extremities Abdomen: Soft, there is no tenderness, rigidity, rebound or guarding, no obvious peritoneal signs, no palpable pulsatile abdominal masses, no auscultated abdominal bruit : No CVAT Extremities: No edema Neuro: No focal neurological deficits, cranial nerves II through XII intact, 5/5 strength in all extremities. Intact sensation to light touch in all extremities, 2+ reflexes bilateral patella tendons. Normal gait. No ataxia. Skin: No rash or lesions noted MEDICAL DECISION MAKING: Chief Complaint: Near syncope External records reviewed: No recent echocardiograms, stress test noted Factors affecting care: Social determinants of health: none History obtained from others: [facility] Narrative: The patient was initially hemodynamically stable, afebrile and nontoxic-appearing. Exam without focal neurologic deficits. No focal cardiopulmonary abnormalities. Abdomen was soft nontender, benign abdomen. Patient's complaints are broad-based, nonspecific. As such I obtained a broad lab and imaging workup to further elucidate etiology of the patient's complaints. I considered the following differential diagnosis: ACS, arrhythmia, anemia, PE, ICH, COVID, UTI, hepatobiliary pathology (acute cholecystitis) ALL IMAGES (IF OBTAINED) HAVE BEEN PERSONALLY REVIEWED AND INTERPRETED BY MYSELF. CBC with leukocytosis suggestive of systemic inflammation, no anemia or thrombocytopenia noted BMP without significant electrode abnormalities, there is no signs of endorgan hypoperfusion, no signs of metabolic acidosis, High-sensitivity troponin is negative, no evidence of myocardial ischemia x 2 I have personally reviewed the patient's chest x-ray. Chest x-ray is unremarkable for pulmonary edema, pneumothorax, pneumonia or focal D-dimer elevated concerning for VTE, obtained a CT of the chest which was negative for PE or dissection LFTs show no evidence of hepatobiliary pathology. Lipase is wnl indicating no pancreatic inflammation. Urinalysis shows no evidence of urinary inflammation suggestive of UTI Urine test is negative cardiopulmonary abnormality. The synthesis of the patient's history, physical exam, labs images suggest no acute life or limb threatening etiology germane to her complaints. While the patient complained of difficulty breathing and feeling like she has got a pass out there is no evidence of any cardial pulm abnormalities including PE, ACS, anemia, arrhythmia. The patient and/or family, caregivers express understanding. The patient and/or family, caregivers agrees with the plan. Shared decision making: I will have a discussion with the patient and or visitors regarding risk/benefits of further testing or admission. They will be made aware of of the risk/benefits inherent in this decision they will be given the opportunity to voice understanding. Total critical care time today provided was at least 0 minutes. This excludes separately billable procedures. Critical care time (if documented) is secondary to the patient having high probability of clinically significant/life threatening deterioration in the patient's condition which required my urgent intervention. Impression: 1. Dyspnea 2. Anxiety 3. Elevated D-dimer Dispo: Discharge home This note was generated with [employer] dictation software. It may contain incorrect words, spelling, and punctuation that were not noted in review of the chart prior to signing. Lab Data Labs: Laboratory Results - last 24 hr 05/06/24 05/06/24 05/06/24 15:25 17:07 18:09 WBC 12.6 H RBC 5.09 Hgb 14.0 Hct 43.7 MCV 85.9 MCH 27.5 MCHC 32.0 RDW Std Deviation 39.0 RDW Coeff of Ramses 12.4 Plt Count 306 MPV 9.5 Immature Gran % (Auto) 0.300 Neut % (Auto) 81.8 H Lymph % (Auto) 12.5 L [place] % (Auto) 4.9 Eos % (Auto) 0.2 Baso % (Auto) 0.3 Absolute Neuts (auto) 10.3 H Absolute Lymphs (auto) 1.58 Nucleated RBC % 0 D-Dimer Quant (PE/DVT) 0.67 H* Sodium 139 Potassium 3.6 Chloride 105 Carbon Dioxide 23.0 Anion Gap 11 BUN 19 H Creatinine 1.15 H Estim Creat Clear Calc 83.40 Est GFR (MDRD) Af Amer 72 Est GFR (MDRD) Non-Af 60 BUN/Creatinine Ratio 16.5 Glucose 113 H Calcium 10.1 Total Bilirubin 0.40 Direct Bilirubin 0.10 AST 27 ALT 23 Alkaline Phosphatase 79 Troponin I High Sens < 3 L 4 B-Natriuretic Peptide 12.3 Total Protein 9.0 H Albumin 4.6 Globulin 4.4 H Lipase 67 Urine Color Yellow Urine Clarity Sl. Cloudy Urine pH 8.0 Ur Specific [place] 1.010 Urine Protein Negative Urine Glucose (UA) Normal Urine Ketones 50 H Urine Occult Blood 10 H Urine Nitrite Negative Urine Bilirubin Negative Urine Urobilinogen Normal Ur Leukocyte Esterase 25 H Urine RBC Not Reportable Urine WBC 0-5 SEEN Ur Squamous Epith Cells 5-10 SEEN Urine Bacteria RARE Urine Mucus Not Reportable Urine Test Negative Radiography Diagnostic Testing: Clinical Impression(s) from Imaging Studies Chest X-Ray 05/06/24 15:50 IMPRESSION: Normal x-ray examination of the chest. Electronically Signed: Marc Frey MD at 16:04 EDT , Chest CTA 05/06/24 17:28 IMPRESSION: undefined Discharge Plan Triage Chief Complaint: Syncope ED Provider: Francisco Crews Dx/Rx/DC Orders Instructions: ED Dyspnea, ED Near-Fainting, Uncertain Cause Prescriptions: New ondansetron 4 mg tablet,disintegrating 4 mg PO Q8H PRN PRN (Reason: Nausea) Qty: 10 0RF No Action [id number]-FA 1 mg Tablet 1 tab PO DAILY magnesium glycinate 100 mg magnesium capsule 200 mg PO DAILY ondansetron 4 mg tablet,disintegrating 4 mg PO Q4H Qty: 10 0RF Rx Instructions: 1st dose 1-2 hr before radiation Primary Care Provider: Care Physician,No Primary Referrals: Guilherme Jin MD [Med Staff - [employer] Sales Representative] - Activity Restrictions/Additional Instructions: Thank you for trusting us with your care today! Please take Tylenol (2 pills, 650 mg), ibuprofen (2 pills, 400 mg) every 6 hours as needed for pain and fever control. Please take Zofran as needed for nausea vomiting control Please return to the emergency department if your symptoms change or worsen. Please follow with your primary care physician for further outpatient evaluation and management. Print Language: Frisian Disposition Disposition: Home, Self Care
[2024-05-06 15:33] LABS: Absolute Lymphocyte Count 1.58 X10^3/uL (0.83-4.51); Absolute Neutrophil Count 10.3 X10^3/uL (2.0-7.7); Basophil# 0.04 X10^3/uL; Basophil% 0.3 % (0-1); Eosinophil# 0.03 X10^3/uL; Eosinophils% 0.2 % (0-5); Hematocrit 43.7 % (37-47); Lymphocyte # 1.58 X10^3/ul (0.83-4.51); Lymphocyte % 12.5 % (19-41); Mean Corpuscular Hgb 27.5 pg (27.0-32.0); Mean Corpuscular Volume 85.9 fL (81-99); Mean Platelet Vol. 9.5 fl (6.2-12.0); Monocyte# 0.62 X10^3/uL; Monocyte% 4.9 % (0-10); NRBC Flagged by Analyzer 0 % (0-5); Neutrophil # 10.31 X10^3/uL (2.7-7.7); Neutrophil % 81.8 % (47-70); Platelet Count 306 K/mm3 (150-450); RBC Distribution Width CV 12.4 % (11.6-14.6); Red Blood Count 5.09 M/mm3 (4.2-5.4); White Blood Count 12.6 K/mm3 (4.4-11.0)
[2024-05-06] MEDS: 0.9% Normal Saline (1000mL) 1,000 ML 999 ML IV (15:39)
[2024-05-06] MEDS: Ondansetron 4 MG/2 ML Vial IV (15:39)
--- NOTE | 2024-05-06 15:50 | RAD_ITS ---
STUDY: X-RAY CHEST REASON FOR EXAM: Female, 29 years old. Chest pain TECHNIQUE: Single AP portable view of the chest. COMPARISON: Comparison is made with prior study February 24, 2024. FINDINGS: EKG electrodes are seen. The lungs are clear and expanded. There is no demonstrated pleural abnormality. Normal size heart. Normal mediastinum and rosy. Normal visualized pulmonary arteries. Normal visualized aortic arch and descending thoracic aorta. Normal visualized thoracic spine. Normal visualized ribs, clavicles, and shoulders. There is no demonstrated abnormality of the visualized soft tissue structures of the upper abdomen. RAD/Chest 1 View (Portable) IMPRESSION: Normal x-ray examination of the chest. Electronically Signed: Marc Fery MD at 16:04 EDT ,
[2024-05-06 16:01] LABS: Anion Gap 11 (5-15); BUN 19 mg/dL (7-18); BUN/Creat Ratio 16.5 RATIO (10-20); Calcium,Total 10.1 mg/dL (8.5-10.1); Chloride 105 mmol/L (98-107); Creatinine, Serum 1.15 mg/dL (0.55-1.02); EST Glomerular Filtration Rate 60 mL/min (>60); Est Glom Filt Rate - Afr Amer 72 mL/min (>60); Glucose 113 mg/dL (74-106); Potassium 3.6 mmol/L (3.5-5.1); Sodium Level 139 mmol/L (136-145); Troponin-I HS (w/2H Reflex) < 3 pg/mL (3.0-54.0)
[2024-05-06 16:08] LABS: AST(SGOT) 27 U/L (15-37); Alanine Aminotransfer ALT/SGPT 23 U/L (13-56); Albumin, Serum 4.6 g/dL (3.2-5.0); Alkaline Phosphatase 79 U/L (45-117); Globulin 4.4 g/dL (2.2-4.2); Lipase 67 U/L (13-75)
[2024-05-06] MEDS: hydrOXYzine 10 MG Tablet PO (16:54)
[2024-05-06 16:56] LABS: BNP,B-Type NATRIURETIC PEPTIDE 12.3 pg/mL (0-100)
[2024-05-06 17:24] LABS: D-Dimer Quantitative (DVT/PE) 0.67 FEU/ug/m (0.27-0.49)
--- NOTE | 2024-05-06 17:28 | CT_ITS ---
STUDY: CTA CHEST REASON FOR EXAM: Female, 29 years old. ELEVATED D-DIMER RADIATION DOSAGE (If Supplied By Facility): CTDIvol = ( 12.32 ) mGy, DLP = ( 375.74 ) mGycm TECHNIQUE: The examination was performed with the intravenous administration of IV 100mL [id number]-[id number]. Post-processing of the angiographic images was performed, with multiplanar reformation and 3D reconstruction. Individualized dose optimization techniques were used for this CT. COMPARISON: Chest radiograph of the same date. FINDINGS: Tubes and lines: 1. No life-support noted. CTA: PULMONARY ARTERIES: There is normal configuration and contrast opacification of pulmonary outflow tract, main pulmonary arteries, segmental and intersegmental pulmonary arteries bilaterally without evidence of intraluminal filling defects. AORTIC ARCH: The aortic arch and descending aorta have normal configuration. No evidence of dissection or aneurysmal dilatation. HEART: Cardiac contour is normal. No evidence pericardial effusion. CT CHEST: LUNGS: [Unremarkable. No mass. No consolidation. PLEURAL SPACES: Unremarkable, no effusion or pneumothorax.. MEDIASTINUM AND LYMPH NODES: Unremarkable. No significant adenopathy. BONES: Unremarkable ABDOMEN: Within normal limits. There is heterogeneous contrast enhancement of the spleen consistent with contrast remaining due to timing bolus. Other: None IMPRESSIONS: 1. No CTA evidence of pulmonary embolism. 2. No CTA evidence of aortic aneurysm or dissection 3. Normal CT appearance of the heart and pericardium. 4. No focal infiltrate consolidation or effusion noted. Electronically Signed: Fausto Frazier MD at 18:50 EDT , CT/CTA Chest W/WO Contrast IMPRESSION: undefined
[2024-05-06 17:29] LABS: Reflex Troponin-HS? (from REC) Y
[2024-05-06 17:30] LABS: Color, Urine Yellow (Yellow); Glucose, Dipstick Normal (Normal); Ketone-Dipstick 50 mg/dl (Negative); Leukocyte Esterase-Dipstick 25 /ul (Negative); Nitrite-Dipstick Negative (Negative); Occult Blood-Urine 10 /ul (Negative); Protein-Dipstick Negative (Negative); Urine Bilirubin Dipstick Negative (Negative); Urine Clarity Sl. Cloudy (Clear); Urine Urobilinogen Normal (Normal)
[2024-05-06 17:34] LABS: Internal QC Validated? YES +Cl - CLEAR BKGD; Pregnancy, Urine Negative Negative
[2024-05-06 17:50] LABS: Bacteria RARE /hpf (None Seen); Squamous Epithelial Cells - UA 5-10 SEEN /hpf (5-10); White Blood Cells 0-5 SEEN /hpf (0-5)
[2024-05-06 18:35] LABS: Troponin-I HS 4 pg/mL (3.0-54.0)
[2024-05-06] MEDS: Acetaminophen 325 MG Tablet 650 MG PO (19:09)
--- NOTE | 2024-05-06 19:15 | ED.RN ---
Pt requested monitor be removed so she can breastfeed her infant.
== END 2024-05-06 19:39 | disposition home or self-care (01) ==
PROVIDERS: Emergency Provider Emergency Medicine; Visit Provider Emergency Medicine
DX: R55 Syncope and collapse (principal); Z87.891 Personal history of nicotine dependence; F41.9 Anxiety disorder, unspecified; R79.89 Other specified abnormal findings of blood chemistry; R06.00 Dyspnea, unspecified
CPT/HCPCS: 71045; 71275; 80048; 80076; 81001; 81025; 83690; 83880; 84484; 85025; 85379; 87631; 93005; 96361; 96374; 99284; J7030; Q9967; A4216; J2405

== ENCOUNTER → 2024-12-08 | Outpatient (CLI) | payer BC, MEDICAID, SELFPAY ==
[2024-12-08 12:18] LABS: Absolute Lymphocyte Count 1.94 X10^3/uL (0.83-4.51); Absolute Neutrophil Count 3.2 X10^3/uL (2.0-7.7); Basophil# 0.03 X10^3/uL; Basophil% 0.5 % (0-1); Eosinophil# 0.07 X10^3/uL; Eosinophils% 1.2 % (0-5); Hematocrit 39.1 % (37-47); Hemoglobin 13.1 g/dL (12.0-15.0); Lymphocyte # 1.94 X10^3/ul (0.83-4.51); Lymphocyte % 34.3 % (19-41); Mean Corp Hgb Conc 33.5 g/dL (32-36); Mean Corpuscular Hgb 29.4 pg (27.0-32.0); Mean Corpuscular Volume 87.9 fL (81-99); Mean Platelet Vol. 9.9 fl (6.2-12.0); Monocyte# 0.46 X10^3/uL; Monocyte% 8.1 % (0-10); NRBC Flagged by Analyzer 0 % (0-5); Neutrophil # 3.15 X10^3/uL (2.7-7.7); Neutrophil % 55.7 % (47-70); Platelet Count 275 K/mm3 (150-450); RBC Distribution Width CV 12.6 % (11.6-14.6); RBC Distribution Width SD 40.4 fl (35.1-43.9); Red Blood Count 4.45 M/mm3 (4.2-5.4); White Blood Count 5.7 K/mm3 (4.4-11.0)
[2024-12-08 13:17] LABS: Hemoglobin A1c 5.1 % (<=5.6)
[2024-12-08 14:03] LABS: AST(SGOT) 22 U/L (<=31); Alanine Aminotransfer ALT/SGPT 10 U/L (<=34); Albumin, Serum 4.7 g/dL (3.5-5.0); Alkaline Phosphatase 75 U/L (35-104); Calcium,Total 9.4 mg/dL (7.6-11.0); Carbon Dioxide 22.8 mmol/L (21.0-32.0); Creatinine, Serum 0.87 mg/dL (0.70-1.20); EST Glomerular Filtration Rate 93 (>60); Total Bilirubin 0.52 mg/dL (0.00-1.30)
[2024-12-08 14:14] LABS: ALB/GLOB Ratio 1.5 RATIO (0.9-2.4); Anion Gap 12 (5-15); BUN 19 mg/dL (4-19); BUN/Creat Ratio 21.3 RATIO (10-20); Chloride 102 mmol/L (98-108); Globulin 3.3 g/dL (2.2-4.2); Glucose 80 mg/dL (70-99); Potassium 3.9 mmol/L (3.3-5.1); Sodium Level 137 mmol/L (133-145)
== END | disposition home or self-care (01) ==
LOC: MFPLAB 10:06
PROVIDERS: PCP Family Medicine; Referring Provider Family Medicine; Visit Provider Family Medicine
DX: Z86.32 Personal history of gestational diabetes (principal); N92.0 Excessive and frequent menstruation with regular cycle
CPT/HCPCS: 36415; 80053; 83036; 84443; 85025